=== PATIENT | male | born 1955 | race Caucasian/White ===

== ENCOUNTER 2019-12-26 12:15 | Outpatient (REF) | payer MEDICARE, SELFPAY ==
[2019-12-26 13:28] LABS: MANUAL DIFF FLAG NO
[2019-12-26 13:47] LABS: Basophils Percent Auto 0.3 % (0-2); Eosinophils Absolute Auto 0.2 X10*3/uL (0.0-0.4); Eosinophils Percent Auto 2.6 % (0-4); Hematocrit 38.8 % (42-52); Hemoglobin 12.7 g/dl (14.0-18.0); Imm Gran Abs Auto 0.02 X10*3/uL (0.00-0.03); Imm Gran Pct Auto 0.3 % (0.0-0.4); Lymphocytes Absolute Auto 1.4 X10*3/uL (1.2-4.9); Lymphocytes Percent Auto 22.3 % (20-40); Mean Corpuscular HGB Conc 32.7 g/dl (31.0-36.0); Mean Corpuscular Volume 91.5 fL (80-98); Mean Platelet Volume 11.5 fL (9.4-12.4); Monocytes Absolute Auto 0.5 X10*3/uL (0.1-1.2); Monocytes Percent Auto 7.7 % (2-11); Neutrophils Absolute Auto 4.1 X10*3/uL (2.0-8.3); Neutrophils Percent Auto 66.8 % (45-73); Platelet Count 133 X10*3/uL (160-400); Red Blood Count 4.24 X10*6/uL (4.60-5.80); Red Cell Distribution Width 13.2 % (11.0-16.0); White Blood Count 6.1 X10*3/uL (4.8-10.8)
[2019-12-26 14:10] LABS: Alanine Aminotransferase 43 U/L (0-40); Albumin Level 4.2 g/dL (3.5-5.0); Alkaline Phosphatase 96 U/L (39-117); Anion Gap 14 (12-20); Aspartate Amino Transferase 26 U/L (5-37); Bilirubin Total 0.4 mg/dL (0.0-1.0); Blood Urea Nitrogen 63 mg/dL (9-16); Calcium 8.8 mg/dL (8.4-10.2); Carbon Dioxide 16 mmol/L (22-29); Chloride 106 mmol/L (96-108); Estimated Glomerular Filt Rate 24; Glucose Random 352 mg/dL (60-115); Potassium 5.9 mmol/l (3.3-5.1); Sodium 130 mmol/L (135-145); Total Protein 6.8 g/dL (6.5-8.0)
[2019-12-26 14:23] LABS: Estimated Average Glucose 217 mg/dL; Hemoglobin A1c % 9.2 %
[2019-12-26 14:57] LABS: Creatinine Urine 45.08 mg/dL; Microalbum/Creatinine Ratio Ur 649.9 ug/mg cr
== END 2019-12-26 12:16 | disposition home or self-care (01) ==
LOC: HO.LAB 12:15
PROVIDERS: PCP Internal Medicine; Visit Provider Internal Medicine
DX: I12.9 Hypertensive chronic kidney disease with stage 1 through stage 4 chronic kidney disease, or unspecified chronic kidney disease (principal); N18.9 Chronic kidney disease, unspecified; E11.22 Type 2 diabetes mellitus with diabetic chronic kidney disease
CPT/HCPCS: 36415; 80053; 82043; 83036; 85025

== ENCOUNTER 2020-01-26 08:57 | Emergency (ER) | payer MEDICARE, SELFPAY ==
--- NOTE | 2020-01-26 09:35 | ED.URI ---
HPI - URI/Sore Throat General Chief Complaint: Abdominal Pain Stated Complaint: FLU [place]S Time Seen by Provider: 01/26/20 09:11 Source: patient Mode of arrival: ambulatory Limitations: no limitations History of Present Illness HPI Narrative: 64 y/o male presenting with mild cough, chills, myalgias, and diarrhea for the last 2-3 days. He states he just feels sick. He lives with his brother who was recently diagnosed with COVID-19 and is now hospitalized at [facility]. He states his brother's presentation had much more severe symptoms and he was dehydrated. Patient is tolerating PO well but admits to decreased appetitite. He has mild nausea and 1-2 episodes of diarrhea each morning. He has no abdominal pain, fevers, shortness of breath, difficulty breathing or chest pain. MD elicited complaint: cough and other Onset (ago): day(s) (2-3) Consistency: intermittent Severity: mild Description of mucous: clear Able to tolerate fluids by mouth: Yes Exacerbating factors: nothing Relieving factors: OTC cold medicine Context: sick contacts (brother was recently diagnosed with COVID-19 who he lives with ) Associated symptoms: chills, nausea and diarrhea Treatments prior to arrival: none Related Data Allergies Allergy/AdvReac Type Severity Reaction Status Date / Time No Known Allergies Allergy Unverified 11/28/19 15:01 [No Known Allergies*] Review of Systems Review of Systems: Constitutional: No Fever, + Chills ENT/Mouth: No sore throat, No Rhinorrhea, No Swallowing Difficulty Cardiovascular: No Chest Pain, No SOB, No Orthopnea, No Edema Respiratory: + Cough, No Sputum, No Wheezing, No dyspnea Gastrointestinal: + Nausea, No Vomiting, + Diarrhea, No abdominal Pain, No Hematochezia, No Melena Genitourinary: No Dysuria, No Urinary Frequency, No Hematuria Musculoskeletal: No joint pain, + Myalgias Skin: No Skin Lesions, No rash Neuro: No Weakness, No Numbness, No Dizziness, + Headache Psych: No Anxiety/Panic, No Depression Heme/Lymph: No Bruising, No Lymphadenopathy PMFSH Past Medical History Attestation statement: The following information was validated with the patient. Medical History Diabetes Social History Social History Advance Directives: Yes Advance Directives Information Provided: No Advance Directives on File: No Physical Exam Vital Signs: Vital Signs: Last Vital Signs Temp 97.2 F 01/26/20 09:40 Pulse 60 01/26/20 09:40 Resp 20 01/26/20 09:40 BP 150/67 H 01/26/20 09:40 Pulse Ox 97 01/26/20 09:40 Body Mass Index 29.8 Appearance: Alert. Oriented X3. No acute distress. ENT: Pharynx normal. Neck: Normal inspection. Neck supple. CVS: Normal heart rate and rhythm. Pulses normal. Respiratory: No respiratory distress. Breath sounds normal. Abdomen: Soft and nontender. Skin: Skin warm and dry. Normal skin color. Normal skin turgor. No rashes. Extremities: No lower extremity edema. Neuro: Oriented X 3. Non-focal Course Course Course Narrative: 64 y/o male presenting with COVID-19 symptoms after known expsosue. His symptoms are mild and he appears well. VSS. No hypoxia and lungs are clear. COVID PCR sent. Patient counseled on presumed COVID-19 diagnosis given his exposure. Warning signs and symptoms discussed that would warrant re-visit to the ER. He expressed understanding. He is stable for d/c. MDM - URI/Sore Throat MDM Narrative Medical decision making narrative: probable COVID-19 Differential Diagnosis Differential diagnosis: Likely upper respiratory infection, croup, otitis media, sinusitis, viral infection, bronchitis, influenza and pharyngitis Critical Care Time Critical Care Time Critical Care Time: No Discharge Plan Discharge Clinical Impression: COVID-19 Patient Disposition: Home, Self-Care Instructions: COVID-19 (Coronavirus Disease 2019) (ED) Additional Instructions: You were tested for COVID-19 today. We will call you with the results in 2-4 days. Given your exposure, it is very likely that it will be positive. Recommend self-quarantine at home and do not go out in public. Monitor your symptoms and temperature closely at home. Take over the counter cold/flu medications as needed for your symptoms. If you develop shortness of breath, difficulty breathing, chest pain or if your diarrhea becomes severe call 911 or come back to the ER for further evaluation. Follow up with your Primary Care doctor this week.
[2020-01-26 09:40] VITALS: BP 150/67; PULSE 60; RESP 20; TEMP 36.2; O2SAT 97; BMI 29.8
== END 2020-01-26 10:16 | disposition home or self-care (01) ==
PROVIDERS: Physician Assistant; Emergency Provider Emergency Medicine; PCP Internal Medicine
DX: R05 Cough (principal); M79.10 Myalgia, unspecified site; R19.7 Diarrhea, unspecified; Z20.828 Contact with and (suspected) exposure to other viral communicable diseases
CPT/HCPCS: 99283; U0003

== ENCOUNTER 2020-02-21 11:12 | Outpatient (REF) | payer MEDICARE, SELFPAY | END 2020-02-21 11:13 | disposition home or self-care (01) | LOC: HO.LAB 11:12 | PROVIDERS: PCP Internal Medicine; Visit Provider Internal Medicine | DX: Z20.828 Contact with and (suspected) exposure to other viral communicable diseases (principal) | CPT/HCPCS: C9803; U0003 ==

== ENCOUNTER 2020-03-26 12:11 | Outpatient (REF) | payer MEDICARE, SELFPAY ==
[2020-03-26 13:40] LABS: MANUAL DIFF FLAG NO
[2020-03-26 13:52] LABS: Basophils Percent Auto 0.6 % (0-2); Eosinophils Absolute Auto 0.2 X10*3/uL (0.0-0.4); Eosinophils Percent Auto 2.8 % (0-4); Hematocrit 39.4 % (42-52); Hemoglobin 12.6 g/dl (14.0-18.0); Imm Gran Abs Auto 0.03 X10*3/uL (0.00-0.03); Imm Gran Pct Auto 0.6 % (0.0-0.4); Lymphocytes Absolute Auto 1.2 X10*3/uL (1.2-4.9); Lymphocytes Percent Auto 21.7 % (20-40); Mean Corpuscular Volume 90.8 fL (80-98); Mean Platelet Volume 12.1 fL (9.4-12.4); Monocytes Absolute Auto 0.4 X10*3/uL (0.1-1.2); Monocytes Percent Auto 6.8 % (2-11); Neutrophils Absolute Auto 3.7 X10*3/uL (2.0-8.3); Neutrophils Percent Auto 67.5 % (45-73); Platelet Count 147 X10*3/uL (160-400); Red Blood Count 4.34 X10*6/uL (4.60-5.80); Red Cell Distribution Width 13.5 % (11.0-16.0); White Blood Count 5.4 X10*3/uL (4.8-10.8)
[2020-03-26 14:09] LABS: Creatinine Urine 42.18 mg/dL; Microalbum/Creatinine Ratio Ur 846.3 ug/mg cr
[2020-03-26 14:21] LABS: Estimated Average Glucose 217 mg/dL; Hemoglobin A1c % 9.2 %
[2020-03-26 15:14] LABS: Alanine Aminotransferase 35 U/L (0-40); Albumin Level 4.2 g/dL (3.5-5.0); Alkaline Phosphatase 103 U/L (39-117); Anion Gap 13 (12-20); Aspartate Amino Transferase 20 U/L (5-37); Bilirubin Total 0.5 mg/dL (0.0-1.0); Blood Urea Nitrogen 50 mg/dL (9-16); Calcium 8.8 mg/dL (8.4-10.2); Carbon Dioxide 19 mmol/L (22-29); Chloride 111 mmol/L (96-108); Estimated Glomerular Filt Rate 29; Glucose Random 295 mg/dL (60-115); Iron 67 mcg/dL (45-160); Percent Iron Saturation 21 % (15-50); Potassium 5.6 mmol/l (3.3-5.1); Sodium 137 mmol/L (135-145); Total Iron Binding Capacity 319 mcg/dL (228-428); Unsaturated Iron Binding 252 ug/dL
== END 2020-03-26 12:12 | disposition home or self-care (01) ==
LOC: HO.10HDL 12:11
PROVIDERS: Visit Provider Internal Medicine
DX: E11.22 Type 2 diabetes mellitus with diabetic chronic kidney disease (principal); I12.9 Hypertensive chronic kidney disease with stage 1 through stage 4 chronic kidney disease, or unspecified chronic kidney disease; N18.9 Chronic kidney disease, unspecified; D63.1 Anemia in chronic kidney disease
CPT/HCPCS: 36415; 80053; 82043; 83036; 83540; 85025

== ENCOUNTER 2020-04-09 14:22 | Outpatient (REF) | payer MEDICARE, SELFPAY ==
[2020-04-09 16:01] LABS: Anion Gap 16 (12-20); Blood Urea Nitrogen 49 mg/dL (9-16); Calcium 8.9 mg/dL (8.4-10.2); Carbon Dioxide 15 mmol/L (22-29); Chloride 110 mmol/L (96-108); Estimated Glomerular Filt Rate 34; Potassium 5.6 mmol/l (3.3-5.1); Sodium 135 mmol/L (135-145)
== END 2020-04-09 14:23 | disposition home or self-care (01) ==
LOC: HO.LAB 14:22
PROVIDERS: PCP Internal Medicine; Visit Provider Internal Medicine Hypertension Specialist
DX: I12.9 Hypertensive chronic kidney disease with stage 1 through stage 4 chronic kidney disease, or unspecified chronic kidney disease (principal); N18.30 Chronic kidney disease, stage 3 unspecified
CPT/HCPCS: 36415; 80051; 82310; 82565; 84520

== ENCOUNTER 2020-10-02 09:29 | Outpatient (REF) | payer MEDICARE, SELFPAY ==
[2020-10-02 11:41] LABS: Creatinine Urine 56.18 mg/dL
[2020-10-02 13:31] LABS: MANUAL DIFF FLAG NO
[2020-10-02 13:35] LABS: Basophils Percent Auto 0.6 % (0-2); Eosinophils Absolute Auto 0.2 X10*3/uL (0.0-0.4); Eosinophils Percent Auto 3.4 % (0-4); Hematocrit 41.6 % (42-52); Hemoglobin 13.3 g/dl (14.0-18.0); Imm Gran Abs Auto 0.02 X10*3/uL (0.00-0.03); Imm Gran Pct Auto 0.4 % (0.0-0.4); Lymphocytes Absolute Auto 1.4 X10*3/uL (1.2-4.9); Lymphocytes Percent Auto 27.8 % (20-40); Mean Corpuscular Hemoglobin 29.6 pg (27.0-33.0); Mean Corpuscular Volume 92.4 fL (80-98); Mean Platelet Volume 11.6 fL (9.4-12.4); Monocytes Absolute Auto 0.3 X10*3/uL (0.1-1.2); Monocytes Percent Auto 6.8 % (2-11); Platelet Count 162 X10*3/uL (160-400); Red Cell Distribution Width 12.9 % (11.0-16.0)
[2020-10-02 13:43] LABS: Estimated Average Glucose 189 mg/dL; Hemoglobin A1c % 8.2 %
[2020-10-02 13:45] LABS: Alanine Aminotransferase 53 U/L (0-40); Albumin Level 4.1 g/dL (3.5-5.0); Alkaline Phosphatase 141 U/L (39-117); Anion Gap 15 (12-20); Aspartate Amino Transferase 29 U/L (5-37); Bilirubin Total 0.4 mg/dL (0.0-1.0); Blood Urea Nitrogen 43 mg/dL (9-16); Calcium 9.2 mg/dL (8.4-10.2); Carbon Dioxide 18 mmol/L (22-29); Chloride 109 mmol/L (96-108); Estimated Glomerular Filt Rate 30; Glucose Random 186 mg/dL (60-115); Potassium 5.5 mmol/L (3.3-5.1); Sodium 136 mmol/L (135-145); Total Protein 7.1 g/dL (6.5-8.0)
[2020-10-02 14:08] LABS: Prostate Specific Antigen Scr 0.67 ng/mL (<0.05-4.0)
== END 2020-10-02 09:30 | disposition home or self-care (01) ==
LOC: HO.10HDL 09:29
PROVIDERS: Visit Provider Internal Medicine
DX: Z12.5 Encounter for screening for malignant neoplasm of prostate (principal); I12.9 Hypertensive chronic kidney disease with stage 1 through stage 4 chronic kidney disease, or unspecified chronic kidney disease; N18.9 Chronic kidney disease, unspecified; E11.22 Type 2 diabetes mellitus with diabetic chronic kidney disease; R35.1 Nocturia
CPT/HCPCS: 36415; 80053; 82043; 83036; 84153; 85025

== ENCOUNTER 2021-02-15 12:48 | Outpatient (REF) | payer MEDICARE, OTHER, SELFPAY ==
[2021-02-15 13:46] LABS: MANUAL DIFF FLAG NO
[2021-02-15 13:49] LABS: Basophils Percent Auto 0.7 % (0-2); Eosinophils Absolute Auto 0.2 X10*3/uL (0.0-0.4); Eosinophils Percent Auto 2.5 % (0-4); Hematocrit 43.7 % (42.0-52.0); Hemoglobin 14.3 g/dl (14.0-18.0); Imm Gran Abs Auto 0.01 X10*3/uL (0.00-0.03); Imm Gran Pct Auto 0.2 % (0.0-0.4); Lymphocytes Absolute Auto 1.5 X10*3/uL (1.2-4.9); Lymphocytes Percent Auto 25.3 % (20-40); Mean Corpuscular HGB Conc 32.7 g/dl (31.0-36.0); Mean Corpuscular Hemoglobin 29.2 pg (27.0-33.0); Mean Corpuscular Volume 89.2 fL (80.0-98.0); Mean Platelet Volume 11.8 fL (9.4-12.4); Monocytes Absolute Auto 0.4 X10*3/uL (0.1-1.2); Monocytes Percent Auto 6.2 % (2-11); Neutrophils Absolute Auto 3.9 x10*3/uL (2.0-8.3); Neutrophils Percent Auto 65.1 % (45-73); Platelet Count 149 X10*3/uL (160-400); Red Cell Distribution Width 13.2 % (11.0-16.0)
[2021-02-15 13:57] LABS: Estimated Average Glucose 189 mg/dL; Hemoglobin A1c % 8.2 %
[2021-02-15 14:22] LABS: Creatinine Urine 68.78 mg/dL; Microalbum/Creatinine Ratio Ur 604.8 ug/mg cr
[2021-02-15 14:37] LABS: Alanine Aminotransferase 37 U/L (0-40); Albumin Level 4.4 g/dL (3.5-5.0); Alkaline Phosphatase 122 U/L (39-117); Anion Gap 14 (12-20); Aspartate Amino Transferase 26 U/L (5-37); Bilirubin Total 0.7 mg/dL (0.0-1.0); Blood Urea Nitrogen 59 mg/dL (9-16); Calcium 9.5 mg/dL (8.4-10.2); Carbon Dioxide 17 mmol/L (22-29); Chloride 109 mmol/L (96-108); Estimated Glomerular Filt Rate 26; Glucose Random 171 mg/dL (60-115); Potassium 5.6 mmol/L (3.3-5.1); Sodium 134 mmol/L (135-145); Total Protein 7.5 g/dL (6.5-8.0)
== END 2021-02-15 12:49 | disposition home or self-care (01) ==
LOC: HO.10HDL 12:48
PROVIDERS: Visit Provider Internal Medicine
DX: I12.9 Hypertensive chronic kidney disease with stage 1 through stage 4 chronic kidney disease, or unspecified chronic kidney disease (principal); N18.9 Chronic kidney disease, unspecified; E11.22 Type 2 diabetes mellitus with diabetic chronic kidney disease
CPT/HCPCS: 36415; 80053; 82043; 83036; 85025

== ENCOUNTER 2021-06-17 11:17 | Outpatient (REF) | payer MEDICARE, OTHER, SELFPAY ==
[2021-06-17 11:37] LABS: MANUAL DIFF FLAG NO
[2021-06-17 11:50] LABS: Estimated Average Glucose 197 mg/dL; Hemoglobin A1c % 8.5 %
[2021-06-17 12:01] LABS: Basophils Percent Auto 0.5 % (0-2); Eosinophils Absolute Auto 0.2 X10*3/uL (0.0-0.4); Eosinophils Percent Auto 2.9 % (0-4); Hematocrit 45.9 % (42.0-52.0); Hemoglobin 14.4 g/dl (14.0-18.0); Imm Gran Abs Auto 0.02 X10*3/uL (0.00-0.03); Imm Gran Pct Auto 0.3 % (0.0-0.4); Lymphocytes Absolute Auto 1.6 X10*3/uL (1.2-4.9); Lymphocytes Percent Auto 26.3 % (20-40); Mean Corpuscular HGB Conc 31.4 g/dl (31.0-36.0); Mean Corpuscular Hemoglobin 29.1 pg (27.0-33.0); Mean Corpuscular Volume 92.7 fL (80.0-98.0); Mean Platelet Volume 11.6 fL (9.4-12.4); Monocytes Absolute Auto 0.4 X10*3/uL (0.1-1.2); Monocytes Percent Auto 5.6 % (2-11); Neutrophils Percent Auto 64.4 % (45-73); Platelet Count 135 X10*3/uL (160-400); Red Blood Count 4.95 X10*6/uL (4.60-5.80); Red Cell Distribution Width 13.1 % (11.0-16.0); White Blood Count 6.2 X10*3/uL (4.8-10.8)
[2021-06-17 12:32] LABS: Creatinine Urine 61.91 mg/dL
[2021-06-17 12:46] LABS: Microalbum/Creatinine Ratio Ur 983.6 ug/mg cr
[2021-06-17 13:24] LABS: Alanine Aminotransferase 30 U/L (0-40); Albumin Level 4.4 g/dL (3.5-5.0); Alkaline Phosphatase 123 U/L (39-117); Anion Gap 12 (12-20); Aspartate Amino Transferase 24 U/L (5-37); Bilirubin Total 0.7 mg/dL (0.0-1.0); Blood Urea Nitrogen 53 mg/dL (9-16); Calcium 9.5 mg/dL (8.4-10.2); Carbon Dioxide 17 mmol/L (22-29); Chloride 113 mmol/L (96-108); Estimated Glomerular Filt Rate 28; Glucose Random 140 mg/dL (60-115); Potassium 6.2 mmol/L (3.3-5.1); Sodium 136 mmol/L (135-145); Total Protein 7.3 g/dL (6.5-8.0)
[2021-06-18 15:00] LABS: Calcium (PTHI) 9.7 mg/dL (8.6-10.3); PTHI 81 pg/mL (16-77)
== END 2021-06-17 11:18 | disposition home or self-care (01) ==
LOC: HO.LAB 11:17
PROVIDERS: PCP Internal Medicine; Visit Provider Internal Medicine
DX: I12.9 Hypertensive chronic kidney disease with stage 1 through stage 4 chronic kidney disease, or unspecified chronic kidney disease (principal); N18.9 Chronic kidney disease, unspecified; E11.22 Type 2 diabetes mellitus with diabetic chronic kidney disease
CPT/HCPCS: 36415; 80053; 82043; 83036; 83970; 85025

== ENCOUNTER 2021-06-22 14:29 | Outpatient (REF) | payer MEDICARE, OTHER, SELFPAY ==
[2021-06-22 15:47] LABS: Anion Gap 13 (12-20); Blood Urea Nitrogen 60 mg/dL (9-16); Calcium 9.3 mg/dL (8.4-10.2); Carbon Dioxide 16 mmol/L (22-29); Chloride 114 mmol/L (96-108); Estimated Glomerular Filt Rate 26; Glucose Random 171 mg/dL (60-115); Potassium 6.1 mmol/L (3.3-5.1); Sodium 137 mmol/L (135-145)
== END 2021-06-22 14:30 | disposition home or self-care (01) ==
LOC: HO.LAB 14:29
PROVIDERS: PCP Internal Medicine; Visit Provider Internal Medicine
DX: N18.9 Chronic kidney disease, unspecified (principal)
CPT/HCPCS: 36415; 80048

== ENCOUNTER 2021-12-30 13:42 | Outpatient (REF) | payer MEDICARE, OTHER, SELFPAY ==
[2021-12-30 13:59] LABS: MANUAL DIFF FLAG NO
[2021-12-30 14:26] LABS: Estimated Average Glucose 197 mg/dL; Hemoglobin A1c % 8.5 %
[2021-12-30 14:29] LABS: Basophils Percent Auto 0.6 % (0-2); Eosinophils Absolute Auto 0.2 X10*3/uL (0.0-0.4); Eosinophils Percent Auto 3.4 % (0-4); Hematocrit 43.5 % (42.0-52.0); Hemoglobin 14.6 g/dl (14.0-18.0); Imm Gran Abs Auto 0.03 X10*3/uL (0.00-0.03); Imm Gran Pct Auto 0.5 % (0.0-0.4); Lymphocytes Absolute Auto 1.5 X10*3/uL (1.2-4.9); Lymphocytes Percent Auto 24.3 % (20-40); Mean Corpuscular HGB Conc 33.6 g/dl (31.0-36.0); Mean Corpuscular Hemoglobin 30.3 pg (27.0-33.0); Mean Corpuscular Volume 90.2 fL (80.0-98.0); Mean Platelet Volume 11.7 fL (9.4-12.4); Monocytes Absolute Auto 0.4 X10*3/uL (0.1-1.2); Monocytes Percent Auto 6.9 % (2-11); Neutrophils Percent Auto 64.3 % (45-73); Platelet Count 155 X10*3/uL (160-400); Red Blood Count 4.82 X10*6/uL (4.60-5.80); Red Cell Distribution Width 13.2 % (11.0-16.0); White Blood Count 6.2 X10*3/uL (4.8-10.8)
[2021-12-30 14:46] LABS: Alanine Aminotransferase 26 U/L (0-40); Albumin Level 4.5 g/dL (3.5-5.0); Alkaline Phosphatase 134 U/L (39-117); Anion Gap 17 (12-20); Aspartate Amino Transferase 20 U/L (5-37); Bilirubin Total 0.4 mg/dL (0.0-1.0); Blood Urea Nitrogen 49 mg/dL (9-16); Calcium 9.5 mg/dL (8.4-10.2); Carbon Dioxide 18 mmol/L (22-29); Chloride 109 mmol/L (96-108); Estimated Glomerular Filt Rate 28; Glucose Random 211 mg/dL (60-115); Potassium 5.7 mmol/L (3.3-5.1); Sodium 138 mmol/L (135-145); Total Protein 7.6 g/dL (6.5-8.0)
== END 2021-12-30 13:43 | disposition home or self-care (01) ==
LOC: HO.LAB 13:42
PROVIDERS: PCP Internal Medicine; Visit Provider Internal Medicine
DX: E11.22 Type 2 diabetes mellitus with diabetic chronic kidney disease (principal); I12.9 Hypertensive chronic kidney disease with stage 1 through stage 4 chronic kidney disease, or unspecified chronic kidney disease; N18.9 Chronic kidney disease, unspecified
CPT/HCPCS: 36415; 80053; 83036; 85025

== ENCOUNTER 2022-01-27 11:48 | Outpatient (REF) | payer MEDICARE, OTHER, SELFPAY ==
[2022-01-27 13:09] LABS: Anion Gap 15 (12-20); Blood Urea Nitrogen 40 mg/dL (9-16); Calcium 8.9 mg/dL (8.4-10.2); Carbon Dioxide 18 mmol/L (22-29); Chloride 108 mmol/L (96-108); Estimated Glomerular Filt Rate 30; Glucose Random 224 mg/dL (60-115); Sodium 136 mmol/L (135-145)
== END 2022-01-27 11:49 | disposition home or self-care (01) ==
LOC: HO.LAB 11:48
PROVIDERS: PCP Internal Medicine; Visit Provider Internal Medicine
DX: E11.22 Type 2 diabetes mellitus with diabetic chronic kidney disease (principal); N18.9 Chronic kidney disease, unspecified
CPT/HCPCS: 36415; 80048

== ENCOUNTER 2022-07-19 10:36 | Outpatient (REF) | payer MEDICARE, OTHER, SELFPAY ==
[2022-07-19 10:48] LABS: MANUAL DIFF FLAG NO
[2022-07-19 11:10] LABS: Basophils Percent Auto 0.7 % (0-2); Eosinophils Absolute Auto 0.2 X10*3/uL (0.0-0.4); Eosinophils Percent Auto 2.9 % (0-4); Hematocrit 39.8 % (42.0-52.0); Hemoglobin 12.8 g/dl (14.0-18.0); Imm Gran Abs Auto 0.01 X10*3/uL (0.00-0.03); Imm Gran Pct Auto 0.2 % (0.0-0.4); Lymphocytes Absolute Auto 1.5 X10*3/uL (1.2-4.9); Lymphocytes Percent Auto 24.7 % (20-40); Mean Corpuscular HGB Conc 32.2 g/dl (31.0-36.0); Mean Corpuscular Hemoglobin 29.8 pg (27.0-33.0); Mean Corpuscular Volume 92.8 fL (80.0-98.0); Mean Platelet Volume 11.3 fL (9.4-12.4); Monocytes Absolute Auto 0.4 X10*3/uL (0.1-1.2); Monocytes Percent Auto 7.1 % (2-11); Neutrophils Absolute Auto 3.8 x10*3/uL (2.0-8.3); Neutrophils Percent Auto 64.4 % (45-73); Platelet Count 151 X10*3/uL (160-400); Red Blood Count 4.29 X10*6/uL (4.60-5.80); Red Cell Distribution Width 13.3 % (11.0-16.0); White Blood Count 5.9 X10*3/uL (4.8-10.8)
[2022-07-19 11:21] LABS: Estimated Average Glucose 197 mg/dL; Hemoglobin A1c % 8.5 %
[2022-07-19 12:41] LABS: Creatinine Urine 55.79 mg/dL; Microalbum/Creatinine Ratio Ur 799.4 ug/mg cr
[2022-07-19 12:46] LABS: Alanine Aminotransferase 39 U/L (0-40); Albumin Level 4.1 g/dL (3.5-5.0); Alkaline Phosphatase 101 U/L (39-117); Anion Gap 12 (12-20); Aspartate Amino Transferase 24 U/L (5-37); Bilirubin Total 0.5 mg/dL (0.0-1.0); Blood Urea Nitrogen 41 mg/dL (9-16); Carbon Dioxide 19 mmol/L (22-29); Chloride 112 mmol/L (96-108); Estimated Glomerular Filt Rate 28; Glucose Random 176 mg/dL (60-115); Potassium 5.5 mmol/L (3.3-5.1); Sodium 137 mmol/L (135-145); Total Protein 6.8 g/dL (6.5-8.0)
== END 2022-07-19 10:37 | disposition home or self-care (01) ==
LOC: HO.LAB 10:36
PROVIDERS: PCP Internal Medicine; Visit Provider Internal Medicine
DX: E11.22 Type 2 diabetes mellitus with diabetic chronic kidney disease (principal); I12.9 Hypertensive chronic kidney disease with stage 1 through stage 4 chronic kidney disease, or unspecified chronic kidney disease; N18.9 Chronic kidney disease, unspecified
CPT/HCPCS: 36415; 80053; 82043; 83036; 85025

== ENCOUNTER 2023-04-15 11:47 | Emergency (ER) | payer MEDICARE, OTHER, SELFPAY ==
--- NOTE | ~2023-04-15 | XR_ITS ---
EXAMINATION: XR CHEST CLINICAL INFORMATION: Right chest pain COMPARISON: Previous chest x-ray August 2017 TECHNIQUE: Frontal view of the chest was obtained. FINDINGS: No significant abnormality is noted involving the heart, lungs, mediastinum, bony thorax or soft tissues. XR/XR chest 1V IMPRESSION: Unremarkable examination.
[2023-04-15 12:00] VITALS: BP 144/76; BP 155/71; PULSE 89; PULSE 91; RESP 17; TEMP 36.7; O2SAT 98; O2SAT 99; BMI 29.4
--- NOTE | 2023-04-15 12:06 | ECG_ITS ---
Test Reason : CP Blood Pressure : / mmHG Vent. Rate : 086 BPM Atrial Rate : 086 BPM P-R Int : 244 ms QRS Dur : 116 ms QT Int : 384 ms P-R-T Axes : 014 -63 054 degrees QTc Int : 459 ms Sinus rhythm with 1st degree A-V block Left anterior fascicular block Left ventricular hypertrophy with QRS widening ( R in aVL , Tez product ) Abnormal ECG When compared with ECG of 26-AUG-2017 12:54, Premature atrial complexes are no longer Present DE interval has increased Vent. rate has increased BY 35 BPM Referred By: Generic ED Physician Electronically Signed By:MERVAT SOTO MD
--- NOTE | 2023-04-15 12:51 | PC.NURSE ---
20gIV placed in the right hand. labs obtained/sent to lab. call arrington placed within reach.
[2023-04-15 12:56] LABS: MANUAL DIFF FLAG NO
[2023-04-15 13:01] LABS: Basophils Percent Auto 0.3 % (0-2); Eosinophils Absolute Auto 0.1 X10*3/uL (0.0-0.4); Eosinophils Percent Auto 0.8 % (0-4); Hematocrit 42.5 % (42.0-52.0); Hemoglobin 14.5 g/dl (14.0-18.0); Imm Gran Abs Auto 0.05 X10*3/uL (0.00-0.03); Imm Gran Pct Auto 0.5 % (0.0-0.4); Lymphocytes Absolute Auto 1.3 X10*3/uL (1.2-4.9); Lymphocytes Percent Auto 13.1 % (20-40); Mean Corpuscular HGB Conc 34.1 g/dl (31.0-36.0); Mean Platelet Volume 11.4 fL (9.4-12.4); Monocytes Absolute Auto 0.7 X10*3/uL (0.1-1.2); Monocytes Percent Auto 6.9 % (2-11); Neutrophils Absolute Auto 7.6 x10*3/uL (2.0-8.3); Neutrophils Percent Auto 78.4 % (45-73); Platelet Count 145 X10*3/uL (160-400); Red Blood Count 4.83 X10*6/uL (4.60-5.80); Red Cell Distribution Width 13.2 % (11.0-16.0); White Blood Count 9.7 X10*3/uL (4.8-10.8)
--- NOTE | 2023-04-15 14:04 | ED.ABDPAIN ---
HPI - Abdominal Pain General Chief Complaint: Nausea/Vomiting/Diarrhea Stated Complaint: ABD PAIN Time Seen by Provider: 04/15/23 13:18 Source: patient Mode of arrival: EMS History of Present Illness HPI narrative: 68-year-old male states he has had nausea and vomiting since Monday, drinks 2-3 beers, 2 to 3 times a week and states he is continued to have bowel movement and flatus but reports epigastric/esophageal discomfort and has not had any nausea, vomiting. Patient is diabetic and does not carry any diagnosis of gastroparesis. Related Data Allergies Allergy/AdvReac Type Severity Reaction Status Date / Time No Known Allergies Allergy Unverified 11/28/19 15:01 [No Known Allergies*] Review of Systems Review of Systems Pertinent positives and negatives as stated in HPI [facility] Past Medical History Source: nursing notes reviewed Medical History Diabetes Social History Social History Advance Directives: No Advance Directives Information Provided: No Physical Exam ED Vital Signs: Vital Signs - 24 hr 04/15/23 12:00 Temperature 98.1 F Pulse Rate 89 Respiratory Rate 17 Blood Pressure 155/71 H Pulse Oximetry 98 Oxygen Delivery Method Room Air BMI result Body Mass Index 29.4 VITAL SIGNS: Reviewed. GENERAL: Well developed, well nourished, in no acute distress. HEAD: Normocephalic/atraumatic EYES: PERRLA, EOMI EARS: Ext canals without abnormality NOSE: Nares patent bilateral OROPHARYNX: no oral lesions noted, posterior pharynx clear NECK: Supple, no adenopathy LUNGS: Normal breath sounds. No adventitious sounds or accessory muscle use. SpO2<98> CARDIOVASCULAR: Regular rate and rhythm without noted murmurs ABDOMEN: Soft, epigastric discomfort on deep palpation, non-distended with bowel sounds. MUSCULOSKELETAL: No tenderness, deformities, or effusions noted on gross inspection. EXTREMITIES: No cyanosis, clubbing or edema. SKIN: Inspection of the skin reveals no rashes NEUROLOGIC: Alert and oriented x 4. Strength and sensation to light touch were grossly intact x 4. Medical Decision Making Medical Decision Making MDM Narrative: 68-year-old male with history and clinical presentation, DDX: Gastritis, esophagitis, low clinical suspicion for Areli-Tsai/bar hives, also possibility of pancreatitis and low clinical suspicion for cholecystitis. 1503: Chemistries significantly delayed, I received a call from lab stating that potassium is 6.4. Patient will receive D50/insulin/Lokelma/calcium gluconate. I reviewed all other investigations. Hematologic indices negative for leukocytosis/anemia and there is a stable and chronic thrombocytopenia. Chemistry indices demonstrate hyperglycemia without evidence of DKA or HHS and a corresponding pseudohyponatremia secondary to the hyperglycemia. Patient's renal function is chronically stable and potassium is elevated but this appears to be consistent for the patient and he will receive the above treatment. He is asking for food and water which is a good sign. On clinical exam there was no evidence to suggest oral thrush and therefore low likelihood for esophagitis candidiasis. Liver enzymes are within normal limits and high sensitivity troponin is noted to be 32.8 without acute changes on EKG. Lipase is within normal limits. Chest x-ray does not demonstrate any infiltrate or venous congestion otherwise no acute abnormalities and my interpretation is in agreement with radiology's impression. Dr Dominguez - follow-up BMP/Trop #2 and then suspect that patient can eat and drink something and be discharged. Differential Diagnosis Differential Diagnoses: The differential diagnosis associated with the presentation includes Please see the discussion above Admission/Observation Consideration of admission/observation: Escalation of care including admission/observation considered Please see the discussion above Lab Data MDM Lab Attestation statement: I reviewed the patient's lab results. Please see the discussion above 04/15/23 12:50 04/15/23 14:34 Labs: Lab Results 04/15/23 04/15/23 Range/Units 12:50 14:34 WBC 9.7 (4.8-10.8) X10*3/uL RBC 4.83 (4.60-5.80) X10*6/uL Hgb 14.5 (14.0-18.0) g/dl Hct 42.5 (42.0-52.0) % MCV 88.0 (80.0-98.0) fL MCH 30.0 (27.0-33.0) pg MCHC 34.1 (31.0-36.0) g/dl RDW 13.2 (11.0-16.0) % Plt Count 145 L (160-400) X10*3/uL MPV 11.4 (9.4-12.4) fL Immature Gran % (Auto) 0.5 H (0.0-0.4) % Neut % (Auto) 78.4 H (45-73) % Lymph % (Auto) 13.1 L (20-40) % [place] % (Auto) 6.9 (2-11) % Eos % (Auto) 0.8 (0-4) % Baso % (Auto) 0.3 (0-2) % Lymph # (Auto) 1.3 (1.2-4.9) X10*3/uL [place] # (Auto) 0.7 (0.1-1.2) X10*3/uL Eos # (Auto) 0.1 (0.0-0.4) X10*3/uL Baso # (Auto) 0.0 (0.0-0.2) X10*3/uL Abs Immat Gran (auto) 0.05 H (0.00-0.03) X10*3/uL Absolute Neuts (auto) 7.6 (2.0-8.3) x10*3/uL Absolute Nucleated RBC 0.000 (0.0-0.012) X10*3/uL Nucleated RBC % (auto) 0.0 (0.0-0.2) /100WBC Sodium 131 L (135-145) mmol/L Potassium 6.4 H* (3.3-5.1) mmol/L Chloride 100 (96-108) mmol/L Carbon Dioxide 20 L (22-29) mmol/L Anion Gap 17 (12-20) BUN 73 H (9-16) mg/dL Creatinine 2.70 H (0.5-1.4) mg/dL Estim Creat Clear Calc 31.3 Estimated GFR 24 Random Glucose 315 H (60-115) mg/dL Calcium 9.0 (8.4-10.2) mg/dL Magnesium 2.7 H (1.6-2.6) mg/dL Total Bilirubin 0.9 (0.0-1.0) mg/dL Direct Bilirubin 0.4 (0.0-0.5) mg/dL AST 18 (5-37) U/L ALT 26 (0-40) U/L Alkaline Phosphatase 116 (39-117) U/L Troponin I High Sens 32.8 (<3.5-35.0) ng/L Total Protein 7.3 (6.5-8.0) g/dL Albumin 3.7 (3.5-5.0) g/dL Lipase 26 (8-78) U/L Independent Interpretation I performed an independent interpretation of an: EKG Interpretation: Sinus rhythm with first-degree AV block, HR-86, no STEMI, no obvious peaked T-waves, MN-244, QRS-116, QTC-459 Radiology Impression Discussion of test interpretation with radiology: I have reviewed the radiologist's reading. Radiologist Impression: Please see the discussion above External Record Review External record reviewed: Outpatient record and Prior outpatient labs Chronic Conditions Patient?s care impacted by: Diabetes Medications Administered Discontinued Medications Generic Name Dose Route Start Last Admin Trade Name Freq PRN Reason Stop Dose Admin Dextrose 25 gm 04/15/23 15:07 04/15/23 15:30 Dextrose 50 % 25 Gm/50 Ml Syringe IVPUSH 04/15/23 15:08 25 gm ONCE ONE Administration Calcium Gluconate 2 gm in 100 mls @ 400 mls/hr 04/15/23 15:07 04/15/23 15:30 Calcium Gluconate IV 04/15/23 15:21 400 mls/hr ONCE ONE Administration Insulin Human Regular 5 unit 04/15/23 15:07 04/15/23 15:29 Insulin Regular, Human 100 Unit/Ml 3 Ml Vial IVPUSH 04/15/23 15:08 5 unit ONCE ONE Administration Sodium Zirconium Cyclosilicate 10 gm 04/15/23 15:07 04/15/23 15:29 Sodium Zirconium Cyclosilicate 10 Gm Powd.Pack PO 04/15/23 15:08 10 gm ONCE ONE Administration Critical Care Time Critical Care Time Critical Care Time: Yes Total Critical Care Time: 30 Attestation: I personally attest to this time spent taking care of the patient. Discharge Plan Discharge Clinical Impression: Gastritis, CKD (chronic kidney disease), Hyperkalemia, Hyperglycemia due to diabetes mellitus Patient Disposition: Still a Patient Instructions: Gastritis (ED), Diet for Stomach Ulcers and Gastritis (ED), Chronic Kidney Disease (ED), Diabetic Hyperglycemia (ED)
[2023-04-15 15:03] LABS: Alanine Aminotransferase 26 U/L (0-40); Albumin Level 3.7 g/dL (3.5-5.0); Alkaline Phosphatase 116 U/L (39-117); Anion Gap 17 (12-20); Aspartate Amino Transferase 18 U/L (5-37); Bilirubin Direct 0.4 mg/dL (0.0-0.5); Bilirubin Total 0.9 mg/dL (0.0-1.0); Blood Urea Nitrogen 73 mg/dL (9-16); Carbon Dioxide 20 mmol/L (22-29); Chloride 100 mmol/L (96-108); Creatinine Clr Calc Pharmacy 31.3; Estimated Glomerular Filt Rate 24; Glucose Random 315 mg/dL (60-115); Lipase 26 U/L (8-78); Magnesium 2.7 mg/dL (1.6-2.6); Potassium 6.4 mmol/L (3.3-5.1); Sodium 131 mmol/L (135-145); Total Protein 7.3 g/dL (6.5-8.0)
[2023-04-15 15:08] LABS: Troponin-I High Sensitivity 32.8 ng/L (<3.5-35.0)
[2023-04-15] MEDS: Insulin Regular, Human 100 UNIT/ML 3 ML VIAL IVPUSH (15:29)
[2023-04-15] MEDS: Sodium Zirconium Cyclosilicate 10 GM POWD.PACK PO (15:29)
[2023-04-15] MEDS: Calcium Gluconate/NaCl,Iso-Osm 2 GM/100 ML PLAST..BAG IV (15:30)
[2023-04-15] MEDS: Dextrose 50 % 25 GM/50 ML SYRINGE IVPUSH (15:30)
[2023-04-15 17:03] LABS: Anion Gap 16 (12-20); Blood Urea Nitrogen 72 mg/dL (9-16); Calcium 9.5 mg/dL (8.4-10.2); Carbon Dioxide 20 mmol/L (22-29); Chloride 100 mmol/L (96-108); Creatinine Clr Calc Pharmacy 32.4; Estimated Glomerular Filt Rate 24; Glucose Random 360 mg/dL (60-115); Potassium 5.7 mmol/L (3.3-5.1); Sodium 130 mmol/L (135-145)
[2023-04-15 17:05] LABS: Troponin-I High Sensitivity 35.8 ng/L (<3.5-35.0)
[2023-04-15 17:58] VITALS: BP 149/86; PULSE 79; RESP 18; O2SAT 98
--- NOTE | 2023-04-15 18:10 | PC.NURSE ---
Patient resting on stretcher with eyes closed, vital signs stable at this time. Respiratory rate equal and without distress.
[2023-04-15 18:27] VITALS: BP 140/81; PULSE 85; RESP 14; TEMP 37; O2SAT 98
[2023-04-15 20:35] VITALS: BP 159/80; PULSE 85; RESP 12; O2SAT 99
[2023-04-15 22:35] VITALS: RESP 16
[2023-04-15] MEDS: Morphine Sulfate 4 MG/ML CARTRIDGE IVPUSH (22:35)
[2023-04-15] MEDS: ondansetron HCL 4 MG/2 ML VIAL IVPUSH (22:36)
[2023-04-15] MEDS: 0.9 % Sodium Chloride 1,000 ML 999 ML IV (22:39)
[2023-04-15 23:00] VITALS: BP 122/54; PULSE 71; RESP 17; O2SAT 99
[2023-04-16 00:06] VITALS: RESP 14
[2023-04-16] MEDS: Morphine Sulfate 4 MG/ML CARTRIDGE IVPUSH (00:06)
[2023-04-16 01:06] VITALS: BP 154/65; PULSE 68; RESP 18; TEMP 36.9; O2SAT 96
== END 2023-04-16 01:55 | disposition home or self-care (01) ==
PROVIDERS: Student in an Organized Health Care Education/Training Program; Emergency Provider Emergency Medicine Emergency Medical Services; PCP Internal Medicine
DX: K29.70 Gastritis, unspecified, without bleeding (principal); E11.22 Type 2 diabetes mellitus with diabetic chronic kidney disease; E11.65 Type 2 diabetes mellitus with hyperglycemia; N18.9 Chronic kidney disease, unspecified; E87.5 Hyperkalemia
CPT/HCPCS: 36415; 71045; 80048; 80076; 83690; 83735; 84484; 85025; 93005; 96361; 96365; 96375; 96376; 99284; 99285; J0613; J2270; J2405

== ENCOUNTER → 2023-04-15 12:06 | Outpatient (BNV) | payer MEDICARE, SELFPAY | PROVIDERS: Emergency Provider Emergency Medicine Emergency Medical Services; PCP Internal Medicine; Visit Provider Internal Medicine Cardiovascular Disease | DX: I44.0 Atrioventricular block, first degree (principal) | CPT/HCPCS: 93010 ==

== ENCOUNTER 2023-06-14 15:18 | Outpatient (REF) | payer MEDICARE, OTHER, SELFPAY ==
[2023-06-14 15:33] LABS: MANUAL DIFF FLAG NO
[2023-06-14 17:36] LABS: Basophils Absolute Auto 0.1 X10*3/uL (0.0-0.2); Eosinophils Absolute Auto 0.2 X10*3/uL (0.0-0.4); Hematocrit 37.9 % (42.0-52.0); Hemoglobin 12.4 g/dl (14.0-18.0); Imm Gran Abs Auto 0.01 X10*3/uL (0.00-0.03); Imm Gran Pct Auto 0.2 % (0.0-0.4); Lymphocytes Absolute Auto 1.6 X10*3/uL (1.2-4.9); Mean Corpuscular HGB Conc 32.7 g/dl (31.0-36.0); Mean Corpuscular Hemoglobin 29.4 pg (27.0-33.0); Mean Corpuscular Volume 89.8 fL (80.0-98.0); Mean Platelet Volume 11.1 fL (9.4-12.4); Monocytes Absolute Auto 0.4 X10*3/uL (0.1-1.2); Monocytes Percent Auto 8.4 % (2-11); Neutrophils Percent Auto 56.4 % (45-73); Platelet Count 182 X10*3/uL (160-400); Red Blood Count 4.22 X10*6/uL (4.60-5.80); White Blood Count 5.2 X10*3/uL (4.8-10.8)
[2023-06-14 18:10] LABS: Alanine Aminotransferase 24 U/L (0-40); Albumin Level 3.8 g/dL (3.5-5.0); Alkaline Phosphatase 105 U/L (39-117); Anion Gap 14 (12-20); Aspartate Amino Transferase 17 U/L (5-37); Bilirubin Total 0.5 mg/dL (0.0-1.0); Blood Urea Nitrogen 57 mg/dL (9-16); Calcium 9.3 mg/dL (8.4-10.2); Carbon Dioxide 19 mmol/L (22-29); Chloride 108 mmol/L (96-108); Estimated Glomerular Filt Rate 23; Glucose Random 204 mg/dL (60-115); Potassium 5.5 mmol/L (3.3-5.1); Sodium 135 mmol/L (135-145); Total Protein 7.3 g/dL (6.5-8.0)
[2023-06-15 06:22] LABS: Estimated Average Glucose 177 mg/dL; Hemoglobin A1c % 7.8 % (<6.0)
== END 2023-06-14 15:19 | disposition home or self-care (01) ==
LOC: HO.LAB 15:18
PROVIDERS: PCP Internal Medicine; Visit Provider Internal Medicine
DX: E11.22 Type 2 diabetes mellitus with diabetic chronic kidney disease (principal); I12.9 Hypertensive chronic kidney disease with stage 1 through stage 4 chronic kidney disease, or unspecified chronic kidney disease; N18.9 Chronic kidney disease, unspecified
CPT/HCPCS: 36415; 80053; 83036; 85025

== ENCOUNTER 2024-03-14 10:23 | Outpatient (REF) | payer MEDICARE, SELFPAY ==
--- OUTSIDE RECORDS SUMMARY | 2024-03-14 10:42 | XMS_ITS | Continuity of Care Document ---
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 Care Team Information Receiv er [phone] Problems Active Problems Provider Date Type 2 diabetes mellitus Curtis Gotti M.D. Onset: 02/16/2022 Cerebrovascular accident Curtis Gotti M.D. Onset: 02/17/2022 Chronic kidney disease stage 3 Curtis Gotti M.D. Onset: 09/03/2023 Diabetes mellitus Curtis Gotti M.D. Onset: 12/18/2023 Social History Type Date Description Comments Sex Unknown Tobacco Use Start: Unknown Never Smoked Cigarettes ETOH Use Consumes 1-2 beers per week Allergies and adverse reactions Description No Known Drug Allergies Medications Active Medications SIG Qnty Indications Order ing Provider Date Freestyle Ezekiel 3 Plus/Sensor/Glucose Monitoring SystemMisc apply one sensor to skin every 14 days dx: e10.21 6units Curtis Gotti M.D. 12/21/2023 Freestyle Ezekiel 3/[place]/Glucose Monitoring Fhgpia8Pjwjty Device use with sensors to check blood sugar dx:e11.9 1units Curtis Gotti M.D. 12/20/2023 Pzhugxhz3ox/0.5ML Solution Pen-Inject 1 injection every week as directed 6ml Curtis Gotti M.D. 11/21/2023 Freestyle Ezekiel 3/Sensor/Glucose Monitoring Dkvijd0Cvgsxv Misc as directed 3units Curtis Gotti M.D. 07/18/2023 Sdiqrimsx49ia Tablets 1 tablet by mouth every day 90tabs Curtis Gotti M.D. 07/18/2023 Novolog Bepbtno658Wqze/ML Solution Pen-Inject Inject 10-15 Units Subcutaneously 3 Times A Day 60units E11.9 Curtis Gotti M.D. 08/09/2022 Lantus Aavktrve082Vtwz/ML Solution Pen-Inject Inject 54 Units In Am 60ml E11.8 Curtis Gotti M.D. 02/07/2022 Gyvwdmkvqr66xa Tablets Take 1/2 Tablet Daily 90tabs Curtis Gotti M.D. Atorvastatin Exsxjmh15au Tablets 1 by mouth every day 30tabs Sanford Urrutia M.D. Losartan Hmlwyherj61nm Tablets 1 by mouth every day 90tabs Sean Mendoza MD Vital Signs Date Vital Result Comment 11/27/2023 11:02am Height 72 inches 6'0 Weight 220.12 lb BMI (Body Mass Index) 29.9 kg/m2 Results Test Acquired Date Facility Test Result H/L Range Note Laboratory test finding 11/27/2023 Inhouse Glucose Fingerstick 143 Comp. Metabolic Panel (14) 11/17/2023 [facility] Glucose 228 mg/dL High 70-99 1 BUN 42 mg/dL High 8-27 Creatinine 2.02 mg/dL High 0.76-1.27 eGFR 35 mL/min/1.7 3 Low >59 BUN/Creatinine Ratio 21 10-24 Sodium 136 mmol/L 134-144 Potassium 5.6 mmol/L High 3.5-5.2 Chloride 107 mmol/L High 96-106 Carbon Dioxide, Total 15 mmol/L Low 20-29 Calcium 8.9 mg/dL 8.6-10.2 Protein, Total 6.5 g/dL 6.0-8.5 Albumin 4.1 g/dL 3.9-4.9 Globulin, Total 2.4 g/dL 1.5-4.5 Bilirubin, Total 0.3 mg/dL 0.0-1.2 Alkaline Phosphatase 136 IU/L High 44-121 Ast (Sgot) 24 IU/L 0-40 Alt (SGPT) 30 IU/L 0-44 Lipid Panel 11/17/2023 [facility] Cholesterol, Total 129 mg/dL 100-199 Triglycerides 181 mg/dL High 0-149 HDL Cholesterol 41 mg/dL >39 VLDL Cholesterol Balta 30 mg/dL 5-40 LDL Chol Calc ([facility]) 58 mg/dL 0-99 LDL Calc Comment: TNP Urinalysis, Complete 11/17/2023 [facility] Specific [place] 1.016 1.005-1.03 0 pH 5.5 5.0-7.5 Urine-Color Yellow Yellow Appearance Clear Clear WBC Esterase Negative Negative Protein 2+ Abnormal Negative/T race Glucose 2+ Abnormal Negative Ketones Negative Negative Occult Blood Negative Negative Bilirubin Negative Negative Urobilinogen,Se mi-Qn 0.2 mg/dL 0.2-1.0 Nitrite, Urine Negative Negative Microscopic Examination See below: 2 Microscopic Examination TNP WBC None seen /hpf 0 - 5 RBC None seen /hpf 0 - 2 Epithelial Cells (non renal) None seen /hpf 0 - 10 Epithelial Cells (renal) TNP Casts None seen /lpf None seen Cast Type TNP Crystals TNP Crystal Type TNP Mucus Threads TNP Bacteria None seen None seen/Few Yeast TNP Trichomonas TNP Comment TNP Hemoglobin A1c 11/17/2023 [facility] Hemoglobin A1c 8.5 % High 4.8-5.6 3 CBC With Differential/Pl atelet 11/17/2023 [facility] WBC 5.3 x10E3/uL 3.4-10.8 RBC 4.02 x10E6/uL Low 4.14-5.80 Hemoglobin 12.5 g/dL Low 13.0-17.7 Hematocrit 38.9 % 37.5-51.0 MCV 97 fL 79-97 MCH 31.1 pg 26.6-33.0 MCHC 32.1 g/dL 31.5-35.7 RDW 13.1 % 11.6-15.4 Platelets 147 x10E3/uL Low 150-450 Neutrophils 66 % Not Estab. Lymphs 25 % Not Estab. Monocytes 6 % Not Estab. Eos 2 % Not Estab. Basos 1 % Not Estab. Immature Cells TNP Neutrophils (Absolute) 3.5 x10E3/uL 1.4-7.0 Lymphs (Absolute) 1.3 x10E3/uL 0.7-3.1 Monocytes(Absol malini) 0.3 x10E3/uL 0.1-0.9 Eos (Absolute) 0.1 x10E3/uL 0.0-0.4 Baso (Absolute) 0.0 x10E3/uL 0.0-0.2 Immature Granulocytes 0 % Not Estab. Immature Grans (Abs) 0.0 x10E3/uL 0.0-0.1 NRBC TNP Hematology Comments: TNP Laboratory test finding 11/17/2023 [facility] TSH Rfx on Abnormal to Free T4 3.300 uIU/mL 0.450-4.50 0 Albumin/Creatin ine Ratio, Random Urine 11/17/2023 [facility] Creatinine, Urine 65.7 mg/dL Not Estab. Albumin, Urine 476.7 ug/mL Not Estab. 4 Alb/Creat Ratio 726 mg/gcreat High 0-29 5 Laboratory test finding 10/30/2023 Inhouse Glucose Fingerstick 189 Hemoglobin A1c 8.3% Laboratory test finding 07/18/2023 Inhouse Glucose Fingerstick 237 Hemoglobin A1c 7.7% Laboratory test finding 08/24/2022 [facility] TSH With Reflex To FT4 3.54 uIU/mL (0.4-4.2) Urinary Microalbumin 08/24/2022 [facility] Micro-Albumin 305.0 mg/L High (<20) 6 Malb/Creat Ratio 509.3 MG/GM High (0-20) Urine Creat For Micro Albumin 59.9 mg/dL Complete Abc With Diff 08/24/2022 [facility] WBC 4.9 K/MM3 (4.0-11.0) RBC 4.55 M/MM3 Low (4.70-6.10 ) HGB 13.5 GM/DL Low (13.7-17.1 ) HCT 41.8 % (40.5-50.0 ) MCV 91.9 FL (80.0-94.0 ) MCH 29.7 pg (27.0-34.0 ) MCHC 32.3 g/dL Low (33.0-37.0 ) PLT 133 K/MM3 Low (150-460) RDW-SD 44.5 FL (<47.0) MPV 11.3 FL (9.4-12.4) Automated NRBC 0.0 #/100WBC'S Abs. NRBC 0.0 K/MM3 Neut # 3.0 K/MM3 (1.3-7.0) Lymph # 1.3 K/MM3 (0.8-3.1) [place]# 0.4 K/MM3 (0.4-1.3) Eo # 0.1 K/MM3 (0.0-0.4) Baso # 0.0 K/MM3 (0.0-0.1) Abs. Imm Gran 0.0 K/MM3 Neut 62.6 % (44-76) Lymph 26.7 % (15-43) Monocyte 7.2 % (4.5-10.5) Eo 2.7 % (0-6) Baso 0.4 % (0-2) Imm Gran 0.4 % Urinalysis Complete 08/24/2022 [facility] Appear/Color LIGHT YELLOW 7 SP. [place] 1.019 (1.002-1.0 30) Urine PH 6.0 (5.0-8.0) Urine Albumin 1+ Abnormal (Neg) Urine Glucose 4+ Abnormal (Neg) Urine Ketones NEGATIVE (Neg) Urine Bilirubin NEGATIVE (Neg) Urine Hemoglobin NEGATIVE (Neg) Urine Nitrite NEGATIVE (Neg) Urine Leukocyte NEGATIVE (Neg) Urobilinogen NORMAL mg/dL (Norm) Urine WBCs NONE SEEN /HPF (0-5) Urine RBCs <1 /HPF (0-3) Lipid Panel 08/24/2022 [facility] Cholesterol, Total 175 mg/dL (<200) Triglyceride 213 mg/dL High (<150) HDL Chol 41 mg/dL (>39) LDL Cholesterol, Calculated 91 mg/dL (0-130) Non HDL Cholesterol (Calc) 134 mg/dL (<160) Comprehensive Metabolic Panl 08/24/2022 [facility] Glucose 184 mg/dL High (70-99) BUN 60 mg/dL High (8-23) Creatinine 2.1 mg/dL High (0.7-1.2) Sodium 134 mmol/L (133-145) Potassium 5.3 mmol/L High (3.6-5.2) Chloride 107 mmol/L (98-107) Bicarbonate 16 mmol/L Low (22-29) Anion Gap 11 (4-17) Albumin 4.5 GM/DL (3.4-4.8) Calcium 9.4 mg/dL (8.6-10.5) Bilirubin,Total 0.3 mg/dL (0-1.2 ) Total Protein 6.8 GM/DL (6.2-8.2 ) Ag Ratio 2.0 Ast 20 U/L (0-40) Alk Phos 101 U/L (40-129) Alt 28 U/L (0-41) Estimated GFR Creatinine 33 ML/MIN/1.7 3M2 8 Laboratory test finding 08/23/2022 Inhouse Glucose Fingerstick 278 Hemoglobin A1c 8.7% Laboratory test finding 05/19/2022 Inhouse Glucose Fingerstick 105 Hemoglobin A1c 8.2% Comprehensive Metabolic Panl 02/17/2022 [facility] Glucose 144 mg/dL High (70-99) BUN 43 mg/dL High (8-23) Creatinine 2.0 mg/dL High (0.7-1.2) Sodium 138 mmol/L (133-145) Potassium 5.3 mmol/L High (3.6-5.2) Chloride 107 mmol/L (98-107) Bicarbonate 18 mmol/L Low (22-29) Anion Gap 13 (4-17) Albumin 4.5 GM/DL (3.4-4.8) Calcium 9.0 mg/dL (8.6-10.5) Bilirubin,Total 0.4 mg/dL (0-1.2 ) Total Protein 7.1 GM/DL (6.2-8.2 ) Ag Ratio 1.7 Ast 24 U/L (0-40) Alk Phos 139 U/L High (40-129) Alt 39 U/L (0-41) Estimated GFR Creatinine 36 ML/MIN/1.7 3M2 9 Lipid Panel 02/17/2022 [facility] Cholesterol, Total 142 mg/dL (<200) Triglyceride 106 mg/dL (<150) HDL Chol 50 mg/dL (>39) LDL Cholesterol, Calculated 71 mg/dL (0-130) Non HDL Cholesterol (Calc) 92 mg/dL (<160) Laboratory test finding 02/17/2022 [facility] Hemoglobin A1c 8.5 % High (4.0-5.6) 10 Complete Abc With Diff 02/17/2022 [facility] WBC 6.1 K/MM3 (4.0-11.0) RBC 4.25 M/MM3 Low (4.70-6.10 ) HGB 12.6 GM/DL Low (13.7-17.1 ) HCT 39.5 % Low (40.5-50.0 ) MCV 92.9 FL (80.0-94.0 ) MCH 29.6 pg (27.0-34.0 ) MCHC 31.9 g/dL Low (33.0-37.0 ) PLT 147 K/MM3 Low (150-460) RDW-SD 44.6 FL (<47.0) MPV 11.2 FL (9.4-12.4) Automated NRBC 0.0 #/100WBC'S Abs. NRBC 0.0 K/MM3 Neut # 4.1 K/MM3 (1.3-7.0) Lymph # 1.4 K/MM3 (0.8-3.1) [place]# 0.4 K/MM3 (0.4-1.3) Eo # 0.2 K/MM3 (0.0-0.4) Baso # 0.0 K/MM3 (0.0-0.1) Abs. Imm Gran 0.0 K/MM3 Neut 66.3 % (44-76) Lymph 22.6 % (15-43) Monocyte 7.0 % (4.5-10.5) Eo 3.3 % (0-6) Baso 0.5 % (0-2) Imm Gran 0.3 % Laboratory test finding 02/17/2022 [facility] TSH With Reflex To FT4 4.62 uIU/mL High (0.4-4.2) Urinary Microalbumin 02/17/2022 [facility] Micro-Albumin 381.5 mg/L High (<20) 11 Malb/Creat Ratio 783.4 MG/GM High (0-20) Urine Creat For Micro Albumin 48.7 mg/dL Urinalysis Complete 02/17/2022 [facility] Appear/Color LIGHT YELLOW 12 SP. [place] 1.015 (1.002-1.0 30) Urine PH 5.5 (5.0-8.0) Urine Albumin 1+ Abnormal (Neg) Urine Glucose 4+ Abnormal (Neg) Urine Ketones NEGATIVE (Neg) Urine Bilirubin NEGATIVE (Neg) Urine Hemoglobin NEGATIVE (Neg) Urine Nitrite NEGATIVE (Neg) Urine Leukocyte NEGATIVE (Neg) Urobilinogen NORMAL mg/dL (Norm) Urine WBCs <1 /HPF (0-5) Urine RBCs NONE SEEN /HPF (0-3) Laboratory test finding 02/17/2022 [facility] Free T4 0.88 ng/dL (0.70-1.80 ) Laboratory test finding 02/17/2022 Inhouse Glucose Fingerstick 155 1 A courtesy copy of t his report has been sent to the patient 2 Microscopic was gia cated and was performed. 3 Prediabetes: 5.7 - 6 .4 Diabetes: >6.4 Glycemic control for adults with diabetes: <7.0 4 Results confirmed on dilution. 5 Normal: 0 - 29 Moderately increased: 30 - 300 Severely increased: >300 6 The urine microalbum in test is designed to monitor renal function. When screening for Bence Huffman proteinuria, urine electrophoresis is recommended. 7 CLEAR 8 Creatinine based est imated glomerular filtration (eGFR) in adults is calculated using the National Kidney Foundation recommended 2020 CKD-EPI equation. Estimates GFR from serum creatinine, age and sex. 9 Creatinine based est imated glomerular filtration (eGFR) in adults is calculated using the National Kidney Foundation recommended 2020 CKD-EPI equation. Estimates GFR from serum creatinine, age and sex. 10 MONITORING: In known diabetic patients, hemoglobin A1c targets should be discussed with health care provider. DIAGNOSTIC USE: The [place] Diabetes Association (ADA) and the World Health Organization (WHO) recommend the use of HbA1c to diagnose diabetes using a threshold of 6.5%. Patients who have an HbA1c between 5.7% and 6.4% are considered at increased risk for developing diabetes in the future. CAUTION: Falsely low HbA1c results may be observed in patients with hemolytic anemia, homozygous forms of abnormal hemoglobin (e.g. SS, CC, SC), , recent blood loss or hemoglobin F greater than 7%. Fructosamine may be used as an alternate test in these cases. REFERENCE: ADA: Standards of Medical Care in Diabetes 2020, The Journal of Clinical and Applied Research and Education Volume 43, Supplement 1 11 The urine microalbum in test is designed to monitor renal function. When screening for Bence Huffman proteinuria, urine electrophoresis is recommended. 12 CLEAR Procedures Date Code Description Status 04/04/2023 NSHOWOFF No Show Office Visit Complet ed 11/24/2022 NSHOWOFF No Show Office Visit Complet ed 08/23/2022 57207 Glucose Monitori ng From Interstital Tissue Fluid Minimum 72 Hours Completed 11/04/2021 NSHOWOFF No Show Office Visit Complet ed 07/13/2021 NSHOWOFF No Show Office Visit Complet ed Medical Devices Description No Information Available Encounters Type Date Location Provider Dx Diagnosis Office Visit 12/18/2023 12:56p Main Office Curtis Gotti M.D. E11.8 Type 2 diabetes mellitus with unspecified complications I63.9 Cerebral infarction, unspecified Assessments Date Code Description Provider 12/18/2023 E11.8 Complication due to diabetes mellitus Curtis Gotti M.D. 12/18/2023 I63.9 Cerebral infarction, unspeci fied Curtis Gotti M.D. Plan of Treatment No Information Available Functional Status Description No Information Available Mental Status Description No Information Available Referrals Refer to Dr Reason for Referral Status Appt Curtis Beal M.D. Created [address] [place] [address] [address] [place] [address] [phone]
[2024-03-14 10:49] LABS: MANUAL DIFF FLAG NO
[2024-03-14 11:20] LABS: Basophils Percent Auto 0.5 % (0-2); Eosinophils Absolute Auto 0.1 X10*3/uL (0.0-0.4); Eosinophils Percent Auto 2.1 % (0-4); Hematocrit 42.2 % (42.0-52.0); Hemoglobin 13.9 g/dl (14.0-18.0); Imm Gran Abs Auto 0.02 X10*3/uL (0.00-0.03); Imm Gran Pct Auto 0.4 % (0.0-0.4); Lymphocytes Absolute Auto 1.2 X10*3/uL (1.2-4.9); Lymphocytes Percent Auto 20.4 % (20-40); Mean Corpuscular HGB Conc 32.9 g/dl (31.0-36.0); Mean Corpuscular Volume 91.1 fL (80.0-98.0); Mean Platelet Volume 10.8 fL (9.4-12.4); Monocytes Absolute Auto 0.4 X10*3/uL (0.1-1.2); Monocytes Percent Auto 6.6 % (2-11); Neutrophils Absolute Auto 3.9 x10*3/uL (2.0-8.3); Platelet Count 156 X10*3/uL (160-400); Red Blood Count 4.63 X10*6/uL (4.60-5.80); White Blood Count 5.6 X10*3/uL (4.8-10.8)
[2024-03-14 11:24] LABS: Estimated Average Glucose 174 mg/dL; Hemoglobin A1C 221.2499 umol/L; Hemoglobin A1c % 7.7 % (<6.0)
[2024-03-14 11:50] LABS: Alanine Aminotransferase 43 U/L (0-40); Albumin Level 4.1 g/dL (3.5-5.0); Alkaline Phosphatase 123 U/L (39-117); Anion Gap 13 (12-20); Aspartate Amino Transferase 30 U/L (5-37); Bilirubin Total 0.4 mg/dL (0.0-1.0); Blood Urea Nitrogen 41 mg/dL (9-16); Calcium 8.6 mg/dL (8.4-10.2); Carbon Dioxide 20 mmol/L (22-29); Chloride 110 mmol/L (96-108); Cholesterol 186 mg/dL (<200); Estimated Glomerular Filt Rate 24; Glucose Fasting 201 mg/dL (60-99); HDL Cholesterol 50 mg/dL (>40); LDL Cholesterol Calculated 111 mg/dL (<100); Potassium 5.2 mmol/L (3.3-5.1); Sodium 138 mmol/L (135-145); Total Protein 7.3 g/dL (6.5-8.0); Triglycerides 125 mg/dL (<150)
[2024-03-14 12:06] LABS: Prostate Specific Antigen 0.92 ng/mL (<0.05-4.0)
[2024-03-14 12:12] LABS: Creatinine Urine 68.76 mg/dL
== END 2024-03-14 10:24 | disposition home or self-care (01) ==
LOC: HO.LAB 10:23
PROVIDERS: PCP Internal Medicine; Visit Provider Internal Medicine
DX: E11.9 Type 2 diabetes mellitus without complications (principal); I10 Essential (primary) hypertension; N18.9 Chronic kidney disease, unspecified; Z12.5 Encounter for screening for malignant neoplasm of prostate
CPT/HCPCS: 36415; 80053; 80061; 82043; 82570; 83036; 84153; 85025

== ENCOUNTER 2024-08-07 15:08 | Outpatient (AMB) | payer MEDICARE, SELFPAY ==
--- NOTE | 2024-08-07 14:13 | A.OFFPC_ITS ---
Vital Signs 08/07/24 15:26 Height 6 ft Weight 208 lb BMI 28.2 BP 120/70 Blood Pressure Location Lt brachial Position Sitting Pulse 65 Pulse Source Pulse Oximeter Temp 97.3 F Temp Source Axillary Pulse Oximetry (%) 98 Oxygen Delivery Method Room Air Intake Visit Reasons: Routine - see comments Setup Operator Required: No Accompanied by: Self / Same As Patient Allergies No Known Allergies [No Known Allergies*] Allergy (Verified 08/07/24 14:14) Tobacco use date assessed: 08/07/24 Fall risk assessment: 1 Fall in past year Last assessed Fall Risk: 08/07/24 Dental Screening Dental Screen Date: 08/07/24 Did you have a dental visit in the last 12 months?: Yes Did you have a dental problem in the last 6 months where you did not have access to dental care?: No [facility] Medical History (Updated 08/07/24 @ 16:02 by Ender Brooks MD) Diabetes Family History (Updated 08/07/24 @ 15:34 by Genesis Mac MA) Mother No problems noted. Father No problems noted. Social History Housing: House Alcohol intake: current Patient Tobacco Use Status: Former Tobacco user e-Cigarette/Vaping Use: Former Use service: No Current occupational status: retired Cognitive needs: No Hearing needs: No Vision needs: Yes (rx glasses) Questionnaire PHQ-9 Over the last 2 weeks, how often have you been bothered by any of the following problems? 1. Little interest or pleasure in doing things: not at all 2. Feeling down, depressed, or hopeless: not at all 3. Trouble falling or staying asleep, or sleeping too much: not at all 4. Feeling tired or having little energy: not at all 5. Poor appetite or overeating: not at all 6. Feeling bad about yourself - or that you are a failure or have let yourself or your family down: not at all 7. Trouble concentrating on things, such as reading the newspaper or watching television: not at all 8. Moving or speaking so slowly that other people could have noticed. Or the opposite - being so fidgety or restless that you have been moving around a lot more than usual: not at all 9. Thoughts that you would be better off or of hurting yourself in some way: not at all Total score: 0 Source: Developed by Drs. Nino Marcum, Guido Santos and colleagues, with an educational sally from [employer] Thrive Questionnaire Date Thrive assessed: 08/07/24 I am a: Patient Within the past 12 months, did the food you bought not last and you didn't have the money to get more?: Never true Within the past 12 months, did you worry whether your food would run out before you got money to buy more?: Never true Do you have trouble paying for medicines?: No Do you have trouble getting transportation to medical appointments?: No Do you have trouble paying your heating and electricity bill?: No Do you have trouble taking care of your child, family member or friend?: No Do you have trouble with day-to-day activities such as bathing, preparing meals, shopping, managing finances, etc.?: No Are you currently unemployed and looking for a job?: No Are you interested in more education?: No THRIVE Score: 0 AUDIT C Alcohol Use Questionnaire (AUDIT-C) 1. How often do you have a drink containing alcohol?: Monthly or less 2. How many drinks containing alcohol do you have on a typical day when you are drinking?: 1 or 2 3. How often do you have six or more drinks on one occasion?: Less than monthly Total Score: 2 CHINMAY-7 AMB Questionnaire CHINMAY-7 Date CHINMAY - 7 assessed: 08/07/24 Feeling nervous, anxious, or on edge: 0 = Not at all Not being able to stop or control worryin = Not at all Worrying too much about different things: 0 = Not at all Trouble relaxin = Not at all Being so restless that it is hard to sit still: 0 = Not at all Becoming easily annoyed or irritable: 0 = Not at all Feeling afraid as if something awful might happen: 0 = Not at all Total CHINMAY-7 score (0-4 normal; 5-9 mild; 10-14 moderate; 15-21 severe): 0 Source: Developed by Drs. Nino Marcum, Guido Santos and colleagues, with an educational sally from [employer] Physical exam (Primary Care) Vital Signs: Last Vital Signs Temp 97.3 F 08/07/24 15:26 Pulse 65 08/07/24 15:26 BP 120/70 08/07/24 15:26 Pulse Ox 98 08/07/24 15:26 Oxygen Delivery Method Room Air 08/07/24 15:26 BMI result Body Mass Index 28.2 Tobacco/Smoking Status: Tobacco use Status Tobacco use date assessed 08/07/24 08/07/24 14:15 Patient Tobacco Use Status Former Tobacco user 08/07/24 15:34 e-Cigarette/Vaping Use Former Use 08/07/24 15:34 PHQ-9: PHQ-9 Score PHQ-9: Total score 0 08/07/24 15:34 Thrive Assessment: Date of Thrive Assessment Date Thrive assessed 08/07/24 08/07/24 14:15 Coding Level of Care Code New Pt Level 4 (09913) Complex EM visit Add On G2211 Diagnoses Diabetes E11.9 Assessment & Plan Assessment & Plan (1) Diabetes: Code(s): E11.9 - Type 2 diabetes mellitus without complications Category: Medical Plan: History of Present Illness - The patient is a 69-year-old male presenting with a request for Ezekiel 3 sensors to monitor blood glucose levels. He has been managing his diabetes with insulin and Mounjaro, a medication that suppresses hunger, which he has found beneficial. - Diagnosed with diabetes mellitus type 2 at age 39 and has been managing the condition for approximately 30 years. - Reports using short-acting insulin (Humalog) with meals, adjusting the dose based on carbohydrate intake. - Previously managed diabetes with an levee superintendent but ceased visits due to outstanding fees, now seeking a new provider. - Acknowledges prior A1c level around 7% with variable sugar levels; intends to improve control. - History of stroke, contributing to current retired status. Social History - Retired due to a history of stroke. 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 Review of Systems - Endocrine: Reports diabetes mellitus type 2 management with insulin and Mounjaro. - Neurological: Denies any current pain or discomfort. - General: Denies any additional health concerns beyond diabetes management. Physical Exam General: Cooperative and healthy appearing Nutritional Appearance: Well nourished Orientation/consciousness: Patient oriented x3 Limitations: No limitations Head: Normal to inspection General: Appearance normal, both eyes and all related structures Neck: Normal visual inspection Chest: Normal palpation of entire chest wall Respiratory: N ormal respiratory effort Neurology: Patient oriented x3, history of stroke Results Plan 1. Diabetes Mellitus Type 2 - Plan for Ezekiel 3 sensors to monitor blood glucose levels. - Continue Humalog with meals, adjusting doses as needed. - Follow-up with Dr. Fields, a new levee superintendent. - Repeat A1c test for glycemic evaluation. 2. History Of Stroke - Included as part of medical history; no changes in management discussed. Discussion Notes During the visit, I discussed the patient's ongoing management of type 2 diabetes mellitus, emphasizing the importance of obtaining Ezekiel 3 sensors for accurate blood glucose monitoring. We talked about continuing the use of Humalog insulin with meals, adjusting doses based on carbohydrate intake. The patient expressed a desire to follow up with a new levee superintendent, Dr. Fields, for continued diabetes care. We agreed to repeat the A1c test to assess current glycemic control. The patient's history of stroke was acknowledged as relevant to his retired status but required no change in management at this time. Patient Instructions - Obtain Ezekiel 3 sensors for blood sugar monitoring. - Continue using Humalog insulin with meals, adjusting doses based on food intake. - Follow up with Dr. Fields for diabetes management. - Repeat the A1c test as advised. - Contact the office if there are issues with obtaining the Ezekiel 3 sensors. Medications: Discontinued ondansetron Discontinued Reason: Patient no longer taking 4 mg PO Q6-8H PRN 14 tabs 0RF nausea and vomiting
[2024-08-07 15:26] VITALS: BP 120/70; PULSE 65; TEMP 36.3; O2SAT 98; BMI 28.2
--- OUTSIDE RECORDS SUMMARY | 2024-08-07 15:52 | XMS_ITS | Continuity of Care Document ---
Author Organization [facility] [address] [facility] [address] [place] [address] Phone [phone] Care Team Providers Care Mold Filler And Drainer Name Role Phone Sanford Urrutia M.D. Care Team Information Receiv er [phone] Problems Active Problems Provider Date Type 2 [...] Date Freestyle Ezekiel 3 Plus/Sensor/Glucose Monitoring SystemMisc Use as Directed 3units Curtis Gotti M.D. 12/21/2023 Freestyle Ezekiel 3/[place]/Glucose Monitoring Qtfvlg4Kjqqzq Device use with sensors to check blood sugar dx:e11.9 1units Curtis Gotti M.D. 12/20/2023 Ipjkjejr9wx/0.5ML Solution Pen-Inject 1 injection every week as directed 6ml Curtis Gotti M.D. 11/21/2023 Freestyle Ezekiel 3/Sensor/Glucose Monitoring Ygatmu2Cicawy Misc as directed 3unmike Gotti M.D. 07/18/2023 Xvfmyewzm63vb Tablets 1 tablet by mouth every day 90tabs Curtis Gotti M.D. 07/18/2023 Novolog Hdwqosn566Bsed/ML Solution Pen-Inject Inject 10-15 Units Subcutaneously 3 Times A Day 60units E11.9 Curtis Gotti M.D. 08/09/2022 Lantus Nsocaulx132Mbns/ML Solution Pen-Inject Inject 54 Units In Am 60ml E11.8 Curtis Gotti M.D. 02/07/2022 Mrunursbke51vc Tablets Take 1/2 Tablet Daily 90tabs Curtis Gotti M.D. Atorvastatin Gqmybsh36cp Tablets 1 by mouth every day 30tabs Sanford Urrutia M.D. Losartan Alcytxtyw52ic Tablets 1 by mouth every day 90tabs Sean Mendoza MD Vital Signs Date Vital Result Comment 11/27/2023 11:02am Height 72 inches 6'0 Weight 220.12 lb BMI (Body Mass Index) 29.9 kg/m2 Results Test Acquired Date Facility Test Result H/L Range Note Glucose Fingerstick 11/27/2023 Inhouse Glucose Fingerstick 143 Comp. Metabolic [...] Balta 30 mg/dL 5-40 LDL Chol Calc ([facility]) 58 mg/dL 0-99 LDL Calc Comment: TNP Urinalysis, Complete 11/17/2023 [facility] Specific [place] 1.016 1.005-1.03 0 pH 5.5 5.0-7.5 Urine-Color [...] 1.4-7.0 Lymphs (Absolute) 1.3 x10E3/uL 0.7-3.1 Monocytes(Absol nikolai) 0.3 x10E3/uL 0.1-0.9 Eos (Absolute) 0.1 x10E3/uL 0.0-0.4 Baso (Absolute) 0.0 x10E3/uL 0.0-0.2 Immature Granulocytes 0 % Not Estab. Immature Grans (Abs) 0.0 x10E3/uL 0.0-0.1 NRBC TNP Hematology Comments: TNP TSH Rfx on Abnormal to Free T4 11/17/2023 [facility] TSH Rfx on Abnormal to Free T4 3.300 uIU/mL 0.450-4.50 0 Albumin/Creatin ine Ratio, Random Urine 11/17/2023 [facility] Creatinine, Urine 65.7 mg/dL Not Estab. Albumin, Urine 476.7 ug/mL Not Estab. 4 Alb/Creat Ratio 726 mg/gcreat High 0-29 5 Glucose Fingerstick 10/30/2023 Inhouse Glucose Fingerstick 189 Hemoglobin A1c 10/30/2023 Inhouse Hemoglobin A1c 8.3% Glucose Fingerstick 07/18/2023 Inhouse Glucose Fingerstick 237 Hemoglobin A1c 07/18/2023 Inhouse Hemoglobin A1c 7.7% TSH With Reflex To FT4 08/24/2022 [facility] TSH With Reflex To FT4 3.54 uIU/mL (0.4-4.2) Urinary Microalbumin 08/24/2022 [facility] Micro-Albumin 305.0 mg/L High (<20) 6 Malb/Creat Ratio 509.3 MG/GM High (0-20) Urine Creat For Micro Albumin 59.9 mg/dL Complete Abc With Diff 08/24/2022 [facility] WBC 4.9 K/MM3 (4.0-11.0) RBC [...] K/MM3 (1.3-7.0) Lymph # 1.3 K/MM3 (0.8-3.1) Sharkey# 0.4 K/MM3 (0.4-1.3) Eo # 0.1 K/MM3 (0.0-0.4) Baso # 0.0 K/MM3 (0.0-0.1) Abs. Imm Gran 0.0 K/MM3 Neut 62.6 % (44-76) Lymph 26.7 % (15-43) Monocyte 7.2 % (4.5-10.5) Eo 2.7 % (0-6) Baso 0.4 % (0-2) Imm Gran 0.4 % Urinalysis Complete 08/24/2022 [facility] Appear/Color LIGHT YELLOW 7 SP. [place] 1.019 (1.002-1.0 30) Urine PH 6.0 (5.0-8.0) Urine Albumin 1+ Abnormal (Neg) Urine Glucose 4+ Abnormal (Neg) Urine Ketones NEGATIVE (Neg) Urine Bilirubin NEGATIVE (Neg) Urine Hemoglobin NEGATIVE (Neg) Urine Nitrite NEGATIVE (Neg) Urine Leukocyte NEGATIVE (Neg) Urobilinogen NORMAL mg/dL (Norm) Urine WBCs NONE SEEN /HPF (0-5) Urine RBCs <1 /HPF (0-3) Lipid Panel 08/24/2022 [facility] Cholesterol, Total 175 mg/dL (<200) Triglyceride 213 mg/dL High (<150) HDL Chol 41 mg/dL (>39) LDL Cholesterol, Calculated 91 mg/dL (0-130) Non HDL Cholesterol (Calc) 134 mg/dL (<160) Comprehensive Metabolic Panl 08/24/2022 [facility] Glucose 184 mg/dL High (70-99) [...] Estimated GFR Creatinine 33 ML/MIN/1.7 3M2 8 Glucose Fingerstick 08/23/2022 Inhouse Glucose Fingerstick 278 Hemoglobin A1c 08/23/2022 Inhouse Hemoglobin A1c 8.7% Glucose Fingerstick 05/19/2022 Inhouse Glucose Fingerstick 105 Hemoglobin A1c 05/19/2022 Inhouse Hemoglobin A1c 8.2% Comprehensive Metabolic Panl 02/17/2022 [facility] Glucose 144 mg/dL High (70-99) [...] 36 ML/MIN/1.7 3M2 9 Lipid Panel 02/17/2022 [facility] Cholesterol, Total 142 mg/dL (<200) Triglyceride 106 mg/dL (<150) HDL Chol 50 mg/dL (>39) LDL Cholesterol, Calculated 71 mg/dL (0-130) Non HDL Cholesterol (Calc) 92 mg/dL (<160) Hemoglobin A1c 02/17/2022 [facility] Hemoglobin A1c 8.5 % High (4.0-5.6) 10 Complete Abc With Diff 02/17/2022 [facility] WBC 6.1 K/MM3 (4.0-11.0) RBC [...] K/MM3 (1.3-7.0) Lymph # 1.4 K/MM3 (0.8-3.1) Sharkey# 0.4 K/MM3 (0.4-1.3) Eo # 0.2 K/MM3 (0.0-0.4) Baso # 0.0 K/MM3 (0.0-0.1) Abs. Imm Gran 0.0 K/MM3 Neut 66.3 % (44-76) Lymph 22.6 % (15-43) Monocyte 7.0 % (4.5-10.5) Eo 3.3 % (0-6) Baso 0.5 % (0-2) Imm Gran 0.3 % TSH With Reflex To FT4 02/17/2022 [facility] TSH With Reflex To FT4 4.62 uIU/mL High (0.4-4.2) Urinary Microalbumin 02/17/2022 [facility] Micro-Albumin 381.5 mg/L High (<20) 11 Malb/Creat Ratio 783.4 MG/GM High (0-20) Urine Creat For Micro Albumin 48.7 mg/dL Urinalysis Complete 02/17/2022 [facility] Appear/Color LIGHT YELLOW 12 SP. [place] 1.015 (1.002-1.0 30) Urine PH 5.5 (5.0-8.0) Urine Albumin 1+ Abnormal (Neg) Urine Glucose 4+ Abnormal (Neg) Urine Ketones NEGATIVE (Neg) Urine Bilirubin NEGATIVE (Neg) Urine Hemoglobin NEGATIVE (Neg) Urine Nitrite NEGATIVE (Neg) Urine Leukocyte NEGATIVE (Neg) Urobilinogen NORMAL mg/dL (Norm) Urine WBCs <1 /HPF (0-5) Urine RBCs NONE SEEN /HPF (0-3) Free T4 02/17/2022 [facility] Free T4 0.88 ng/dL (0.70-1.80 ) Glucose Fingerstick 02/17/2022 Inhouse Glucose Fingerstick 155 1 A [...] calculated using the National Kidney Foundation recommended 202 CKD-EPI equation. Estimates GFR from serum creatinine, age and sex. 10 MONITORING: In known diabetic patients, hemoglobin A1c targets should be discussed with health care provider. DIAGNOSTIC USE: The [place] Diabetes Association (ADA) and the World Health [...] No Show Office Visit Complet ed 08/23/2022 20481 Glucose Monitori ng From Interstital Tissue Fluid [...] to Dr Reason for Referral Status Appt Benja e Curtis Gotti M.D. Created [address] [place] [address] Drive [address] [place] [address] [phone] Curtis Gotti M.D. Closed [address] [place] [address] Drive [address] [place] [address] [phone]
== END 2024-08-07 15:59 | disposition home or self-care (01) ==
LOC: HO.HMCHD 15:09
PROVIDERS: PCP Internal Medicine; Visit Provider Internal Medicine
DX: E11.9 Type 2 diabetes mellitus without complications (principal)

== ENCOUNTER → 2024-08-07 15:08 | Outpatient (BNVA) | payer MEDICARE, SELFPAY | PROVIDERS: PCP Internal Medicine; Visit Provider Internal Medicine | DX: E11.9 Type 2 diabetes mellitus without complications (principal); Z86.73 Personal history of transient ischemic attack (TIA), and cerebral infarction without residual deficits; Z79.4 Long term (current) use of insulin; Z13.30 Encounter for screening examination for mental health and behavioral disorders, unspecified | CPT/HCPCS: 96127; 99202 ==

== ENCOUNTER 2024-09-18 08:48 | Outpatient (AMB) | payer MEDICARE, SELFPAY ==
--- NOTE | 2024-09-18 08:50 | A.OFFVIS_ITS ---
Vital Signs 09/18/24 08:55 Height 6 ft Weight 216 lb 4.375 oz BMI 29.3 BP 94/60 Blood Pressure Location Rt brachial Position Sitting Pulse 50 Pulse Source Pulse Oximeter Pulse Oximetry (%) 94 Oxygen Delivery Method Room Air Intake Visit Reasons: Type 2 diabetes Intake Note: New patient internally referred by PCP for T2DM. Patient does not have a glucometer, strips and lancets. Patient receives Ezekiel 3 supplies through: Pharmacy Last Diabetic Eye exam: Due, 2-3 years has an appointment October 01, 2024 Last Podiatry Visit: Does not see a Corporate Communications Manager, requesting referral. Random Glucose: 178 mg/dl HgA1C: 8.4% 09/18/2024 Experimental Mechanic Spacecraft Required: No Accompanied by: Self / Same As Patient Allergies No Known Allergies (No Known Allergies*) Allergy (Verified 09/18/24 08:58) Medication List - Last Reconciled 09/18/24 by Nino Fields MD aspirin 81 mg PO DAILY atorvastatin 40 mg PO DAILY blood-glucose sensor (anchor.travelyle Ezekiel 3 Sensor device) As directed empagliflozin (Jardiance) 10 mg PO DAILY insulin aspart U-100 (Novolog FlexPen U-100 Insulin aspart) subcut losartan 25 mg PO DAILY tirzepatide (Mounjaro) mg subcut HPI Comments Details: 69 YO M who is seen in consultation for T2DM in setting of CKD Stage 4 at the request of PCP. Initially diagnosed with T2DM in since age 39 . Was seeing endo at [facility] Was initially started on treatment with metformin . Current regimen Mounjaro 2.5 mg Jardiance 10 mg QD Novolog 20-40 units . based on carbs Unfortunately, patient did not bring sensor, glucometer or log book to visit Reports low sugars occasionally . Treats lows with sugar . Not Checks sugar after to ensure it is rising. Most recent A1C 8.4 , . Family history of T2DM in father, mother , sister brothers . Has eyes checked yearly, last eye exam 3 yrs ago , seeing Dr. Ballesteros in near future has retinopathy in left eye. Has neuropathy, last foot exam 2-3 yrs ago , sees podiatry. Has nephropathy at [facility] , on CLAUDIO/ARB. Has HLD, on statin. Last LDL as measured on 111. Denies CAD.Has CVA Had diabetes educationbut not recently [facility] Medical History (Updated 08/07/24 @ 16:02 by Ender Brooks MD) Diabetes Surgical History (Updated 09/18/24 @ 09:00 by AARON Clinton) No pertinent past surgical history Family History (Updated 08/07/24 @ 15:34 by Genesis Mac MA) Mother No problems noted. Father No problems noted. Social History Housing: House Alcohol intake: current Patient Tobacco Use Status: Former Tobacco user e-Cigarette/Vaping Use: Former Use service: No Current occupational status: retired Cognitive needs: No Hearing needs: No Vision needs: Yes (rx glasses) Physical Exam Vital Signs: Last Vital Signs Pulse 50 09/18/24 08:55 BP 94/60 09/18/24 08:55 Pulse Ox 94 09/18/24 08:55 Oxygen Delivery Method Room Air 09/18/24 08:55 BMI result Body Mass Index 29.3 Absence of Cushingoid features. Absence of acromegalic features. Neck exam reveals nl size thyroid about 15 gms. No thyroid nodules palpable. No carotid bruits present. Lungs CTA. Heart S1 S2, Reg R/R. No M/R/ G. Skin exam reveals absence of vitiligo or acanthosis nigricans. Abdominal exam reveals Soft NT/ND with NA BS. No organomegaly present. Neck Other: . Extrem Other: Visual exam of foot performed. Left 1st toe with superficial ulcerations and open lesions. R LE has superficial ulcerations No onchomycosis, no callouses.Pulses 2 + distally Sensation intact to monofilament exam. Vibratory sensation sensed is decreased with 128 Hz tuning fork Results AMB Hemoglobin A1c AMB Hemoglobin A1c 8.4 % Last Edit by AARON Clinton on 09/18/24 09:20 Results Reviewed Results Reviewed: Laboratory Last Values Glucose (Clinic) 178 mg/dL (60-115) H 09/18/24 09:09 Assessment & Plan Assessment & Plan (1) Diabetes: Code(s): E11.9 - Type 2 diabetes mellitus without complications Category: Medical Plan: This is a 69-year-old white male with a history of type 2 diabetes being treated with Mounjaro and Jardiance with fair glycemic control with known microvascular and macrovascular complications namely CVA and CKD stage 4 Plan is to have the patient see the CDE and watch crystal edge grinder. Can not make any adjustments to the regimen because of lack of data today. Will have patient return with sensor for follow up. Will probably need basal insulin in combination with prandial insulin in addition to G LP 1 and Jardiance. Could consider in future switching the Mounjaro to Ozempic considering the history of stroke. Would shoot for HbA1c around 7.5% considering patient's age and comorbidities. Will have patient follow up with primary care diabetes team in 3-4 weeks . I also arranged for the patient to see wound care in 2 days to address his toe ulceration as well as superficial ulcerations on the lower extremit Orders: Orders AMB Hemoglobin A1c Today E11.9 - Type 2 diabetes mellitus without complications Lipid Panel 2 Months E11.9 - Type 2 diabetes mellitus without complications Referrals Nutrition/Dietitian Referral E11.9 - Type 2 diabetes mellitus without complications Diabetes Education Referral E11.9 - Type 2 diabetes mellitus without complications Wound Care Referral E11.621 - Type 2 diabetes mellitus with foot ulcer, L97.529 - Non-pressure chronic ulcer of other part of left foot with unspecified severity Medications: New atorvastatin (Lipitor) 80 mg PO DAILY 30 tabs 5RF Coding Level of Care Code New Pt Level 5 (85277) Diagnoses Diabetes E11.9
[2024-09-18 08:55] VITALS: BP 94/60; PULSE 50; O2SAT 94; BMI 29.3
--- OUTSIDE RECORDS SUMMARY | 2024-09-18 09:02 | XMS_ITS | Clinical Summary ---
Author Organization [facility] Address [address] [address] Phone Care Team Providers Care Netezza Developer Name Role Phone Sanford Urrutia MD Primary Care Provider [phone] Allergies Active Allergy Reactions Criticality Noted Date Comments Penicillin G 08/13/2020 Octacosanol 08/28/2023 Medications aspirin (ST SOPHIE) 81 MG EC tablet Take 1 tablet by mouth 1 (one) time each day Active insulin glargine (Lantus) 100 UNIT/ML injection Inject 60 Units under the skin 1 (one) time each day Active Insulin Lispro, 1 Unit Dial, (HumaLOG KWIKPEN) 100 UNIT/ML solution pen-injector 10-20 mcg 3 times a day Active simvastatin (ZOCOR) 80 MG tablet Take 1 tablet by mouth 1 (one) time each day Active Continuous Blood Gluc Sensor (FreeStyle Ezekiel 2 Sensor) misc Activ e sodium bicarbonate 650 MG tablet Take 1 tablet (650 mg total) by mouth in the morning and 1 tablet (650 mg total) in the evening. 11/20/2023 Active Empagliflozin 10 MG tablet Take 10 mg by mouth 1 (one) time each day in the morning 11/20/2023 Active losartan (COZAAR) 25 MG tablet Take 1 tablet (25 mg total) by mouth 1 (one) time each day 90 tablet 3 05/20/2024 Active Active Problems Problem Noted Date Diagnosed Date Stage 3b chronic kidney disease 02/06/2023 Hypertensive chronic kidney disease 02/06/2023 Metabolic acidosis, normal anion gap (NAG) 02/06 Type 2 diabetes mellitus wit h diabetic chronic kidney disease 02/06/2023 Cerebrovascular accident 02/17/2022 Type 2 diabetes mellitus 02/16/2022 Neuropathy due to diabetes mellitus 08/13/2020 Essential hypertension 08/13/2020 Resolved Problems Problem Noted Date Diagnosed Date Resolved Date Chronic kidney disease stage 3 08/13/2020 02/06/2023 Immunizations Immunization Administration Dates Next Due Pneumococcal Polysaccharide 05/26/2016 Family History Medical History Relation Comments Diabetes Father Cancer Mother Dementia Mother Diabetes Mother Diabetes Sibling Relation Status Comments Father Mother Alive Sibling Social History Tobacco Use Types Packs/Day Years Used Date Smoking Tobacco: Never Alcohol Use Standard Drinks/Week Comments Yes 0 (1 standard drink = 0.6 oz pure alcohol) Alcoholic Drinks/day: Occasional social drink Sex and Gender Information Value Date Recorded Sex Assigned at Not on file Legal Sex Male 5:09 PM EST Gender Identity Not on file Sexual Orientation Not on file Last Filed Vital Signs Vital Sign Reading Time Taken Comments Blood Pressure 132/76 05/20/2024 2:12 PM EDT Pulse 57 05/20/2024 2:12 PM EDT Temperature - - Respiratory Rate - - Oxygen Saturation 98% 10/13/2023 9:42 AM EDT Inhaled Oxygen Concentration - - Weight 96.3 kg (212 lb 3.2 oz) 05/20/2024 2:12 P M EDT Height 180.3 cm (5' 11 ) 04/09/2020 12:00 PM EST Body Mass Index 29.6 04/09/2020 12:00 PM EST Plan of Treatment Upcoming Encounters Date Type Department Care Team (Late st Contact Info) Description 09/25/2024 Orders Only [facility] [address] [phone] Nir Mendoza MD [address] [phone] Stage 3b chronic kidney disease (HCC); Metabolic acidosis, normal anion gap (NAG); Hypertensive chronic kidney disease; Type 2 diabetes mellitus with diabetic chronic kidney disease (HCC) 11/18/2024 2:45 PM EDT Office Visit [facility] [address] [phone] Nir Mendoza MD [address] [phone] Health Maintenance Due Date Last Done Comments Colorectal Cancer Screening: Annual FOBT 2003 Colorectal Cancer Screening: Colonoscopy 2003 Colorectal Cancer Screening: Sigmoidoscopy 2003 Pneumococcal Vaccine: 50+ Ye ars (2 of 2 - PCV) 05/26/2017 05/26/2016 Diabetes: Hemoglobin A1C 04/12/2020 Diabetes: Ophthalmology Exam 04/12/2020 Diabetes: Pedal Pulse Checked 04/12/2020 Diabetes: Sensory Foot Exam 04/12/2020 Diabetes: Visual Foot Exam 04/12/2020 Influenza Vaccine (#1) 2024 Pneumococcal Vaccine: Peds ( 0 to 5 Years) and At-Risk Patients (6 to 49 Years) Discontinued 05/26/2016 Hepatitis B Vaccine Aged Out No longe r eligible based on patient's age to complete this topic Insurance [facility] Care Teams Netezza Developer Relationship Specialty Start Date End Date Sanford Urrutia MD [address] [place] PCP - General 03/23/20
--- OUTSIDE RECORDS SUMMARY | 2024-09-18 09:02 | XMS_ITS | Continuity of Care Document ---
Author Organization [facility] [address] [place] [address] Phone [phone] Care Team Providers Care Technology Project Manager Name Role Phone Sanford Urrutia M.D. Care Team Information Receiv er [phone] Problems Active Problems Provider Date Type 2 diabetes mellitus Curtis Gotti M.D. Onset: 02/16/2022 Cerebrovascular accident Curtis Gotti M.D. Onset: 02/17/2022 Chronic kidney disease stage 3 Curtis Gotti M.D. Onset: 09/03/2023 Diabetes mellitus Curtsi Gotti M.D. Onset: 12/18/2023 Social History Type Date Description Comments Sex Male Sex Unknown Tobacco Use Start: Unknown Never Smoked Cigarettes ETOH Use Consumes 1-2 beers per week Allergies and adverse reactions Description No Known Drug Allergies Medications Active Medications SIG Qnty Indications Order ing Provider Date Freestyle Ezekiel 3 Plus/Sensor/Glucose Monitoring SystemMisc Use as Directed 3units Curtis Gotti M.D. 12/21/2023 Freestyle Ezekiel 3/[place]/Glucose Monitoring Opjdyg3Yevcvp Device use with sensors to check blood sugar dx:e11.9 1units Curtis Gotti M.D. 12/20/2023 Gkgxdqum6yw/0.5ML Solution Pen-Inject 1 injection every week as directed 6ml Curtis Gotti M.D. 11/21/2023 Freestyle Ezekiel 3/Sensor/Glucose Monitoring Naprav0Zugxuv Misc as directed 3unmike Gotti M.D. 07/18/2023 Xbhvkxyah75ge Tablets 1 tablet by mouth every day 90tabs Curtis Gotti M.D. 07/18/2023 Novolog Diumlxc020Szkp/ML Solution Pen-Inject Inject 10-15 Units Subcutaneously 3 Times A Day 60units E11.9 Curtis Gotti M.D. 08/09/2022 Lant Erofmirv391Psdi/ML Solution Pen-Inject Inject 54 Units In Am 60ml E11.8 Curtis Gotti M.D. 02/07/2022 Qqnkprnypv69tv Tablets Take 1/2 Tablet Daily 90tabs Curtis Gotti M.D. Atorvastatin Hvimxmh06dl Tablets 1 by mouth every day 30tabs Sanford Urrutia M.D. Losartan Jbepqfgup27zx Tablets 1 by mouth every day 90tabs [...] Comment: TNP Urinalysis, Complete 11/17/2023 [facility] Specific [place] 1.016 1.005-1.03 0 pH 5.5 5.0-7.5 Urine-Color [...] 1.4-7.0 Lymphs (Absolute) 1.3 x10E3/uL 0.7-3.1 Monocytes(Absol cabazon) 0.3 x10E3/uL 0.1-0.9 Eos (Absolute) 0.1 x10E3/uL [...] 7.7% TSH With Reflex To FT4 08/24/2022 [facility] TSH With Reflex To FT4 3.54 uIU/mL (0.4-4.2) Urinary Microalbumin 08/24/2022 [facility] Micro-Albumin 305.0 mg/L High (<20) 6 Malb/Creat Ratio 509.3 MG/GM High (0-20) Urine Creat For Micro Albumin 59.9 mg/dL Complete Abc With Diff 08/24/2022 [facility] WBC 4.9 K/MM3 (4.0-11.0) [...] K/MM3 (1.3-7.0) Lymph # 1.3 K/MM3 (0.8-3.1) [place]# 0.4 K/MM3 (0.4-1.3) Eo # 0.1 K/MM3 (0.0-0.4) Baso # 0.0 K/MM3 (0.0-0.1) Abs. Imm Gran 0.0 K/MM3 Neut 62.6 % (44-76) Lymph 26.7 % (15-43) Monocyte 7.2 % (4.5-10.5) Eo 2.7 % (0-6) Baso 0.4 % (0-2) Imm Gran 0.4 % Urinalysis Complete 08/24/2022 [facility] Appear/Color LIGHT YELLOW 7 SP. [place] 1.019 (1.002-1.0 30) Urine PH 6.0 (5.0-8.0) Urine Albumin 1+ Abnormal (Neg) Urine Glucose 4+ Abnormal (Neg) Urine Ketones NEGATIVE (Neg) Urine Bilirubin NEGATIVE (Neg) Urine Hemoglobin NEGATIVE (Neg) Urine Nitrite NEGATIVE (Neg) Urine Leukocyte NEGATIVE (Neg) Urobilinogen NORMAL mg/dL (Norm) Urine WBCs NONE SEEN /HPF (0-5) Urine RBCs <1 /HPF (0-3) Lipid Panel 08/24/2022 [facility] Cholesterol, Total 175 mg/dL (<200) Triglyceride 213 mg/dL High (<150) HDL Chol 41 mg/dL (>39) LDL Cholesterol, Calculated 91 mg/dL (0-130) Non HDL Cholesterol (Calc) 134 mg/dL (<160) Comprehensive Metabolic Panl 08/24/2022 [facility] Glucose 184 mg/dL High [...] Hemoglobin A1c 8.2% Comprehensive Metabolic Panl 02/17/2022 [facility] Glucose 144 mg/dL High [...] 36 ML/MIN/1.7 3M2 9 Lipid Panel 02/17/2022 [facility] Cholesterol, Total 142 mg/dL (<200) Triglyceride 106 mg/dL (<150) HDL Chol 50 mg/dL (>39) LDL Cholesterol, Calculated 71 mg/dL (0-130) Non HDL Cholesterol (Calc) 92 mg/dL (<160) Hemoglobin A1c 02/17/2022 [facility] Hemoglobin A1c 8.5 % High (4.0-5.6) 10 Complete Abc With Diff 02/17/2022 [facility] WBC 6.1 K/MM3 (4.0-11.0) [...] K/MM3 (1.3-7.0) Lymph # 1.4 K/MM3 (0.8-3.1) [place]# 0.4 K/MM3 (0.4-1.3) Eo # 0.2 K/MM3 (0.0-0.4) Baso # 0.0 K/MM3 (0.0-0.1) Abs. Imm Gran 0.0 K/MM3 Neut 66.3 % (44-76) Lymph 22.6 % (15-43) Monocyte 7.0 % (4.5-10.5) Eo 3.3 % (0-6) Baso 0.5 % (0-2) Imm Gran 0.3 % TSH With Reflex To FT4 02/17/2022 [facility] TSH With Reflex To FT4 4.62 uIU/mL High (0.4-4.2) Urinary Microalbumin 02/17/2022 [facility] Micro-Albumin 381.5 mg/L High (<20) 11 Malb/Creat Ratio 783.4 MG/GM High (0-20) Urine Creat For Micro Albumin 48.7 mg/dL Urinalysis Complete 02/17/2022 [facility] Appear/Color LIGHT YELLOW 12 SP. [place] 1.015 (1.002-1.0 30) Urine PH 5.5 (5.0-8.0) Urine Albumin 1+ Abnormal (Neg) Urine Glucose 4+ Abnormal (Neg) Urine Ketones NEGATIVE (Neg) Urine Bilirubin NEGATIVE (Neg) Urine Hemoglobin NEGATIVE (Neg) Urine Nitrite NEGATIVE (Neg) Urine Leukocyte NEGATIVE (Neg) Urobilinogen NORMAL mg/dL (Norm) Urine WBCs <1 /HPF (0-5) Urine RBCs NONE SEEN /HPF (0-3) Free T4 02/17/2022 [facility] Free T4 0.88 ng/dL [...] with health care provider. DIAGNOSTIC USE: The [place] Diabetes [employer] (ADA) and the World Health [...] No Show Office Visit Complet ed 08/23/2022 [id number] Glucose Monitori ng From Interstital Tissue Fluid [...] Appt Benja e Curtis Gotti M.D. Created [address] [place] [address] Drive [address] [place] [address] [phone] Curtis Gotti M.D. Closed [address] [place] [address] Drive [address] [place] [address] [phone]
[2024-09-18 09:14] LABS: Glucose, Whole Blood 178 mg/dL (60-115)
== END 2024-09-18 10:06 | disposition home or self-care (01) ==
LOC: HO.ENCR 08:49
PROVIDERS: PCP Internal Medicine; Visit Provider Internal Medicine Endocrinology, Diabetes & Metabolism
DX: E11.9 Type 2 diabetes mellitus without complications (principal); Z79.4 Long term (current) use of insulin
CPT/HCPCS: 99204

== ENCOUNTER → 2024-09-18 08:48 | Outpatient (BNVA) | payer MEDICARE, SELFPAY | PROVIDERS: PCP Internal Medicine; Visit Provider Internal Medicine Endocrinology, Diabetes & Metabolism | DX: E11.9 Type 2 diabetes mellitus without complications (principal); L97.529 Non-pressure chronic ulcer of other part of left foot with unspecified severity | CPT/HCPCS: 82947; 83036; 99202 ==

== ENCOUNTER 2024-10-10 08:45 | Outpatient (RCR) | payer MEDICARE, SELFPAY | END 2024-10-10 16:00 | disposition home or self-care (01) | LOC: HO.WCC 08:45 | PROVIDERS: Visit Provider Surgery | DX: E11.621 Type 2 diabetes mellitus with foot ulcer (principal); L97.811 Non-pressure chronic ulcer of other part of right lower leg limited to breakdown of skin; L97.521 Non-pressure chronic ulcer of other part of left foot limited to breakdown of skin; E11.622 Type 2 diabetes mellitus with other skin ulcer; I87.2 Venous insufficiency (chronic) (peripheral); Z87.891 Personal history of nicotine dependence | CPT/HCPCS: 97597; 99212 ==

== ENCOUNTER 2024-10-16 08:54 | Outpatient (AMB) | payer MEDICARE, SELFPAY ==
--- NOTE | 2024-10-16 09:02 | A.OFFVIS_ITS ---
Vital Signs 10/16/24 09:03 Height 6 ft Weight 213 lb 13.574 oz BMI 29.0 BP 132/70 Blood Pressure Location Rt brachial Position Sitting Pulse 56 Pulse Source Pulse Oximeter Pulse Oximetry (%) 96 Oxygen Delivery Method Room Air Intake Visit Reasons: T2DM Intake Note: Patient presents today for a follow-up on Type 2 Diabetes Mellitus: Last Diabetic eye exam was on: 10/14/2024 Last Podiatry exam was on: Patient does not see a Personal Injury Attorney Most recent HbA1c: 8.4% 09/18/2024 Random Glucose: 256 mg/dL Damascener Required: No Accompanied by: Self / Same As Patient Allergies No Known Allergies (No Known Allergies*) Allergy (Verified 10/16/24 09:04) Medication List - Last Reconciled 10/16/24 by Lacy Fuchs MD aspirin 81 mg PO DAILY atorvastatin (Lipitor) 80 mg PO DAILY blood-glucose sensor (FreeStyle Ezekiel 3 Sensor device) As directed empagliflozin (Jardiance) 10 mg PO DAILY insulin aspart U-100 (Novolog FlexPen U-100 Insulin aspart) subcut losartan 25 mg PO DAILY HPI Comments Details: 69 YO M who is seen in consultation for T2DM in setting of CKD Stage 4 at the request of PCP. Initially diagnosed with T2DM in since age 39 . Was seeing endo at [facility] . Saw Dr Fields one month ago-no changes in med at that time Was initially started on treatment with metformin . Current regimen Mounjaro 5 mg Jardiance 10 mg QD Novolog 15-20 units-bases dosing on low carb/high carb meal. Takes 5-10 minute before meals. He is checking his glucose soon after meals and taking extra novolog if high CGM reviewed-14 day GMI 8.1% TGGT 34%, high 66%. He has had one low in last 7 days, 5 in last 90 days. Treats lows with sugar. Advised to check sugar after to ensure it is rising. Family history of T2DM in father, mother , sister brothers . Has eyes checked yearly-Dr. 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 Has neuropathy, last foot exam 2-3 yrs ago , sees podiatry. Has nephropathy at [facility] , on CLAUDIO/ARB. Has HLD, on statin. Last LDL as measured on 111. Denies CAD.Has CVA Has scheduled diabetic education and nutrition ROS CONSTITUTIONAL: Denies weight loss, fever and chills. HEENT: Denies changes in vision and hearing. RESPIRATORY: Denies SOB and cough. CV: Denies palpitations and CP GI: Denies abdominal pain, nausea, vomiting and diarrhea. : Denies dysuria and urinary frequency. MSK: Denies new myalgia and joint pain. SKIN: Denies rash and pruritus. NEUROLOGICAL: Denies headache PSYCHIATRIC: Denies recent changes in mood. PHYSICAL EXAM: GENERAL: Alert and oriented x 3. NAD EYES: EOMI. Anicteric. HENT: Moist mucous membranes. No scleral icterus. No cervical lymphadenopathy. LUNGS: Clear to auscultation bilaterally. CARDIOVASCULAR: Regular rate and rhythm. No murmur. No JVD. ABDOMEN: Soft, non-tender +bs EXTREMITIES: No edema. Non-tender. SKIN: No rashes or lesions. Warm. NEUROLOGIC: No focal neurological deficits. CN II-XII grossly intact PSYCHIATRIC: Cooperative. Appropriate mood and affect [facility] Medical History Diabetes Surgical History No pertinent past surgical history Family History Mother No problems noted. Father No problems noted. Social History Housing: House Alcohol intake: current Patient Tobacco Use Status: Former Tobacco user e-Cigarette/Vaping Use: Former Use service: No Current occupational status: retired Cognitive needs: No Hearing needs: No Vision needs: Yes (rx glasses) Physical Exam Vital Signs: Last Vital Signs Pulse 48 L 10/16/24 09:03 BP 132/70 10/16/24 09:03 Oxygen Delivery Method Room Air 10/16/24 09:03 BMI result Body Mass Index 29.0 Assessment & Plan Assessment & Plan (1) Diabetes: Code(s): E11.9 - Type 2 diabetes mellitus without complications Category: Medical Qualifiers: Diabetes mellitus type: type 2 Diabetes mellitus assisted insulin use: with compliance professional use Diabetes mellitus complication status: with kidney complications Diabetes mellitus complication detail: with chronic kidney disease Chronic kidney disease stage: stage 4 (GFR 15-29) Qualified Code(s): E11.22 - Type 2 diabetes mellitus with diabetic chronic kidney disease; N18.4 - Chronic kidney disease, stage 4 (severe); Z79.4 - snf (current) use of insulin Plan: 69 year old for diabetic follow up A1C not at goal. Has some lows. Advised NOT to take novolog after meals. If high he can go for a walk. Discussed potentially starting the novolog on a sliding scale or adjustment over time so he is getting less post prandial hyperglycemia but stressed not taking once the meal is over Increase mounjaro. continue jardiance Treat hypoglycemia by rules of 15s. Upcoming diabetic education, nutrition. Return in 2 months or sooner as needed Medications: New tirzepatide (Mounjaro) 7.5 mg (0.5 mL) subcut QWEEK 6 mL 1RF Coding Level of Care Code Est Pt Level 4 (92173) Diagnoses Type 2 diabetes mellitus with stage 4 chronic kidney disease, with long-term current use of insulin E11.22; N18.4; Z79.4 Diabetes mellitus type: type 2 Diabetes mellitus assisted insulin use: with assisted use Diabetes mellitus complication status: with kidney complications Diabetes mellitus complication detail: with chronic kidney disease Chronic kidney disease stage: stage 4 (GFR 15-29)
[2024-10-16 09:03] VITALS: BP 132/70; PULSE 56; O2SAT 96; BMI 29.0
--- OUTSIDE RECORDS SUMMARY | 2024-10-16 09:05 | XMS_ITS | Clinical Summary ---
Author Organization [facility] Address [address] [address] Phone Care Team Providers Care Heat Treat Furnace Operator Name Role Phone Sanford Urrutia MD Primary Care Provider [phone] Allergies Active Allergy Reactions Criticality Noted Date [...] Chronic kidney disease stage 3 08/13/2020 02/06/2023 Encounters Date Type Department Care Team Description 09/25/2024 Orders Only [facility] [address] [phone] Nir Mendoza MD Stage 3b chronic kidney disease (HCC); Metabolic acidosis, normal anion gap (NAG); Hypertensive chronic kidney disease; Type 2 diabetes mellitus with diabetic chronic kidney disease (HCC) from Last 3 Months Immunizations Immunization Administration Dates Next Due Pneumococcal [...] Care Team (Late st Contact Info) Description 11/18/2024 2:45 PM EDT Office Visit [facility] [address] [phone] Nir Mendoza MD [address] [phone] Health Maintenance Due Date Last Done Comments [...] this topic Insurance [facility] Member Subscriber Plan / Payer (Ef fective 2018-Present) Name:Jameson Gonzales Relation to Subscriber:Self Name:Jameson Gonzales Payer ID:[id number] (NAIC) Type:Not on file Address: [place] [phone] [facility] Care Teams Heat Treat Furnace Operator Relationship Specialty Start Date End Date Sanford Urrutia MD [address] [place] [address] [address] [facility] PCP - General 03/23/20
--- OUTSIDE RECORDS SUMMARY | 2024-10-16 09:05 | XMS_ITS | Continuity of Care Document ---
Author Organization [facility] [employer] [employer] [address] [facility] [address] [place] [address] Phone [phone] Care Team Providers Care Recruitment Manager Name Role Phone Sanford Urrutia M.D. Care Team Information Receiv er [phone] Problems Active Problems Provider Date Type 2 [...] 3units Curtis Gotti M.D. 12/21/2023 Freestyle Ezekiel 3/[place]/Glucose Monitoring Klfvak8Ishjlu Device use with sensors to check blood sugar dx:e11.9 1units Curtis Gotti M.D. 12/20/2023 Prxxstry7pi/0.5ML Solution Pen-Inject 1 injection every week as directed 6ml Curtis Gotti M.D. 11/21/2023 Freestyle Ezekiel 3/Sensor/Glucose Monitoring Ykyvgy5Wfdbyr Misc as directed 3unmike Gotti M.D. 07/18/2023 Gkkbiybli33gb Tablets 1 tablet by mouth every day 90tabs Curtis Gotti M.D. 07/18/2023 Novolog Ofjugpx008Fqty/ML Solution Pen-Inject Inject 10-15 Units Subcutaneously 3 Times A Day 60units E11.9 Curtis Gotti M.D. 08/09/2022 Lant Fwqnrdre197Vpre/ML Solution Pen-Inject Inject 54 Units In Am 60ml E11.8 Curtis Gotti M.D. 02/07/2022 Wecdqkmckg78un Tablets Take 1/2 Tablet Daily 90tabs Curtis Gotti M.D. Atorvastatin Wpsqako46yw Tablets 1 by mouth every day 30tabs Sanford Urrutia M.D. Losartan Afhewimsh00ss Tablets 1 by mouth every day 90tabs [...] Balta 30 mg/dL 5-40 LDL Chol Calc ([facility]) 58 mg/dL 0-99 LDL Calc Comment: TNP Urinalysis, Complete 11/17/2023 [facility] Specific [place] 1.016 1.005-1.03 0 pH 5.5 5.0-7.5 Urine-Color [...] 1.4-7.0 Lymphs (Absolute) 1.3 x10E3/uL 0.7-3.1 Monocytes(Absol [place]) 0.3 x10E3/uL 0.1-0.9 Eos (Absolute) 0.1 x10E3/uL [...] 7.7% TSH With Reflex To FT4 08/24/2022 [facility] TSH With Reflex To FT4 3.54 uIU/mL (0.4-4.2) Urinary Microalbumin 08/24/2022 [facility] Micro-Albumin 305.0 mg/L High (<20) 6 Malb/Creat Ratio 509.3 MG/GM High (0-20) Urine Creat For Micro Albumin 59.9 mg/dL Complete Abc With Diff 08/24/2022 [facility] WBC 4.9 K/MM3 (4.0-11.0) [...] K/MM3 (1.3-7.0) Lymph # 1.3 K/MM3 (0.8-3.1) [place]# 0.4 K/MM3 (0.4-1.3) Eo # 0.1 K/MM3 (0.0-0.4) Baso # 0.0 K/MM3 (0.0-0.1) Abs. Imm Gran 0.0 K/MM3 Neut 62.6 % (44-76) Lymph 26.7 % (15-43) Monocyte 7.2 % (4.5-10.5) Eo 2.7 % (0-6) Baso 0.4 % (0-2) Imm Gran 0.4 % Urinalysis Complete 08/24/2022 [facility] Appear/Color LIGHT YELLOW 7 SP. [place]ck[place] 1.019 (1.002-1.0 30) Urine PH 6.0 (5.0-8.0) Urine Albumin 1+ Abnormal (Neg) Urine Glucose 4+ Abnormal (Neg) Urine Ketones NEGATIVE (Neg) Urine Bilirubin NEGATIVE (Neg) Urine Hemoglobin NEGATIVE (Neg) Urine Nitrite NEGATIVE (Neg) Urine Leukocyte NEGATIVE (Neg) Urobilinogen NORMAL mg/dL (Norm) Urine WBCs NONE SEEN /HPF (0-5) Urine RBCs <1 /HPF (0-3) Lipid Panel 08/24/2022 [facility] Cholesterol, Total 175 mg/dL (<200) Triglyceride 213 mg/dL High (<150) HDL Chol 41 mg/dL (>39) LDL Cholesterol, Calculated 91 mg/dL (0-130) Non HDL Cholesterol (Calc) 134 mg/dL (<160) Comprehensive Metabolic Panl 08/24/2022 [facility] Glucose 184 mg/dL High [...] Hemoglobin A1c 8.2% Comprehensive Metabolic Panl 02/17/2022 [facility] Glucose 144 mg/dL High [...] 36 ML/MIN/1.7 3M2 9 Lipid Panel 02/17/2022 [facility] Cholesterol, Total 142 mg/dL (<200) Triglyceride 106 mg/dL (<150) HDL Chol 50 mg/dL (>39) LDL Cholesterol, Calculated 71 mg/dL (0-130) Non HDL Cholesterol (Calc) 92 mg/dL (<160) Hemoglobin A1c 02/17/2022 [facility] Hemoglobin A1c 8.5 % High (4.0-5.6) 10 Complete Abc With Diff 02/17/2022 [facility] WBC 6.1 K/MM3 (4.0-11.0) [...] K/MM3 (1.3-7.0) Lymph # 1.4 K/MM3 (0.8-3.1) [place]# 0.4 K/MM3 (0.4-1.3) Eo # 0.2 K/MM3 (0.0-0.4) Baso # 0.0 K/MM3 (0.0-0.1) Abs. Imm Gran 0.0 K/MM3 Neut 66.3 % (44-76) Lymph 22.6 % (15-43) Monocyte 7.0 % (4.5-10.5) Eo 3.3 % (0-6) Baso 0.5 % (0-2) Imm Gran 0.3 % TSH With Reflex To FT4 02/17/2022 [facility] TSH With Reflex To FT4 4.62 uIU/mL High (0.4-4.2) Urinary Microalbumin 02/17/2022 [facility] Micro-Albumin 381.5 mg/L High (<20) 11 Malb/Creat Ratio 783.4 MG/GM High (0-20) Urine Creat For Micro Albumin 48.7 mg/dL Urinalysis Complete 02/17/2022 [facility] Appear/Color LIGHT YELLOW 12 SP. [place]ck[place] 1.015 (1.002-1.0 30) Urine PH 5.5 (5.0-8.0) Urine Albumin 1+ Abnormal (Neg) Urine Glucose 4+ Abnormal (Neg) Urine Ketones NEGATIVE (Neg) Urine Bilirubin NEGATIVE (Neg) Urine Hemoglobin NEGATIVE (Neg) Urine Nitrite NEGATIVE (Neg) Urine Leukocyte NEGATIVE (Neg) Urobilinogen NORMAL mg/dL (Norm) Urine WBCs <1 /HPF (0-5) Urine RBCs NONE SEEN /HPF (0-3) Free T4 02/17/2022 [facility] Free T4 0.88 ng/dL [...] with health care provider. DIAGNOSTIC USE: The [place] Diabetes Association (ADA) and the World Health [...] No Show Office Visit Complet ed 08/23/2022 93257 Glucose Monitori ng From Interstital Tissue Fluid [...] Appt Benja e Curtis Gotti M.D. Created [address] [place] [address] Drive [address] [place] [address] [phone] Curtis Gotti M.D. Closed [address] [place] [address] Drive [address] [place] [address] [phone]
[2024-10-16 09:18] LABS: Glucose, Whole Blood 254 mg/dL (60-115)
== END 2024-10-16 09:31 | disposition home or self-care (01) ==
LOC: HO.ENCR 08:55
PROVIDERS: PCP Internal Medicine; Visit Provider Internal Medicine
DX: E11.22 Type 2 diabetes mellitus with diabetic chronic kidney disease (principal); N18.4 Chronic kidney disease, stage 4 (severe); Z79.4 Long term (current) use of insulin

== ENCOUNTER → 2024-10-16 08:54 | Outpatient (BNVA) | payer MEDICARE, SELFPAY | PROVIDERS: PCP Internal Medicine; Visit Provider Internal Medicine | DX: E11.22 Type 2 diabetes mellitus with diabetic chronic kidney disease (principal); N18.4 Chronic kidney disease, stage 4 (severe); Z79.4 Long term (current) use of insulin; Z83.3 Family history of diabetes mellitus | CPT/HCPCS: 82947; 99212 ==

== ENCOUNTER 2024-11-04 09:48 | Outpatient (AMB) | payer MEDICARE, SELFPAY ==
[2024-11-04 09:59] VITALS: BMI 28.6
--- NOTE | 2024-11-04 09:59 | A.OFFVIS_ITS ---
VS Expanded 11/04/24 09:59 11/04/24 20:56 Height 6 ft 6 ft Weight 210 lb 15.718 oz 211 lb BMI 28.6 28.6 Intake Visit Reasons: T2DM Allergies No Known Allergies (No Known Allergies*) Allergy (Verified 10/16/24 09:04) Nutrition Presentation Details: Pt presents for initial MNT for T2DM Pt has questions regarding meal combinations for better gluc control. B: 2 boiled eggs, slice of cheese, muro, coffee with light cream L: chicken zenaida /cream coffee or water or burger or pasta with lemon d: carbon plant grinder /beers snacks: mixed nuts (100 brendon) or apple physical activity: ADL, contemplating starting physical activity etoh/smoking--- food frequency fruits: 2/d ve/wk dairy 2-3/d fish 0-1/wk beverages:water/diet beverages/coffee 2c/d EFG-Cahqqrm-Tz.Jeor Equation Height: 6 ft Weight: 211 lb Resting Metabolic Rate: 1759.72 Calculated Activity Level: Sedentary Calories Needed to Maintain Weight: 2111.66 Diagnosis Nutrition problem #1: altered nutrition labs As related to (etiology) #1: diagnosis As evidenced by (sign/symptom) #1: abnormal lab values [facility] Medical History Diabetes Surgical History No pertinent past surgical history Family History Mother No problems noted. Father No problems noted. Social History Housing: House Alcohol intake: current Patient Tobacco Use Status: Former Tobacco user e-Cigarette/Vaping Use: Former Use service: No Current occupational status: retired Cognitive needs: No Hearing needs: No Vision needs: Yes (rx glasses) Assessment & Plan Assessment & Plan (1) Diabetes: Code(s): E11.9 - Type 2 diabetes mellitus without complications Category: Medical Qualifiers: Chronic kidney disease stage: stage 4 (GFR 15-29) Diabetes mellitus complication detail: with chronic kidney disease Diabetes mellitus complication status: with kidney complications Diabetes mellitus bed bug exterminator insulin use: with fpc use Diabetes mellitus type: type 2 Qualified Code(s): E11.22 - Type 2 diabetes mellitus with diabetic chronic kidney disease; N18.4 - Chronic kidney disease, stage 4 (severe); Z79.4 - bed bug exterminator (current) use of insulin Plan: Wt: 96 Kg (11/04 ) Est kcal needs as per MSJ: 2100 (40% carb, 30% protein/fat) Est fluid needs as per 25-30 ml/d: 2900 Est prot per day as per 1 g/kg bw: Recommend fiber intake : 8-10 g per day and gradually increase to 25-28 g per day for women and 35-38 g for men or as tolerated Recommend sodium intake per day : less than 1500 mg less than 2000 mg Educated patient on: ( R = reviewed V = verbalizes understanding N/R = needs review N/A = not applicable * Food sources of carbohydrate, adequate serving sizes and its role in various health conditions: R V * Differences between complex carbohydrates a simple carbohydrates, role of fiber in diet: R * Lean protein sources of foods: R V * Differences between types of fats and role in diet (mono on saturated fat fatty acids, saturated fatty acids, trans fats): R V N/R * Food sources of sodium in salt and healthy modifications for heart health in kidney health: R V R/V * Vitamins and minerals: R V N/R * Healthy plate method concept: R V N/R * Physical activity: Benefits a precaution: R * Hypoglycemia protocol (rule of 15): R V N/R * Dietary prevention of Hyperglycemia: R Patient Instructions: Include non starchy vegetables in 2 of your meals, increasing on fiber intake Increase water as you increase vegetable/fiber intake ot prevent constipation Maintain physically active as able and keep hydrated Coding Level of Care Code Nutr Indiv Intake (60210) Diagnoses Type 2 diabetes mellitus with stage 4 chronic kidney disease, with long-term current use of insulin E11.22; N18.4; Z79.4 Chronic kidney disease stage: stage 4 (GFR 15-29) Diabetes mellitus complication detail: with chronic kidney disease Diabetes mellitus complication status: with kidney complications Diabetes mellitus bed bug exterminator insulin use: with fpc use Diabetes mellitus type: type 2 Time Spent (min) 30
--- OUTSIDE RECORDS SUMMARY | 2024-11-04 10:42 | XMS_ITS | Continuity of Care Document ---
Author Organization [facility] [address] [facility] [address] [place] [address] Phone [phone] Care Team Providers Care Cue Worker Name Role Phone Sanford Urrutia M.D. Care Team Information Receiv er [phone] Problems Active Problems Provider Date Type 2 [...] 3units Curtis Gotti M.D. 12/21/2023 Freestyle Ezekiel 3/[place]/Glucose Monitoring Ozprej1Dxcezm Device use with sensors to check blood sugar dx:e11.9 1units Curtis Gotti M.D. 12/20/2023 Sxbelwdk4gr/0.5ML Solution Pen-Inject 1 injection every week as directed 6ml Curtis Gotti M.D. 11/21/2023 Freestyle Ezekiel 3/Sensor/Glucose Monitoring Nthiww1Unzspk Misc as directed 3unmike Gotti M.D. 07/18/2023 Fbfxwnvza44aw Tablets 1 tablet by mouth every day 90tabs Curtis Gotti M.D. 07/18/2023 Novolog Rdwmxyr575Ujvg/ML Solution Pen-Inject Inject 10-15 Units Subcutaneously 3 Times A Day 60units E11.9 Curtis Gotti M.D. 08/09/2022 Lant Dhbujmle479Klya/ML Solution Pen-Inject Inject 54 Units In Am 60ml E11.8 Curtis Gotti M.D. 02/07/2022 Forvzmogyb18az Tablets Take 1/2 Tablet Daily 90tabs Curtis Gotti M.D. Atorvastatin Gqbnmls29za Tablets 1 by mouth every day 30tabs Sanford Urrutia M.D. Losartan Hurcxiybe69pf Tablets 1 by mouth every day 90tabs [...] Balta 30 mg/dL 5-40 LDL Chol Calc ([facility]) 58 mg/dL 0-99 LDL Calc Comment: TNP Urinalysis, Complete 11/17/2023 [facility] Specific [place] 1.016 1.005-1.03 0 pH 5.5 5.0-7.5 Urine-Color [...] 1.4-7.0 Lymphs (Absolute) 1.3 x10E3/uL 0.7-3.1 Monocytes(Absol [place]) 0.3 x10E3/uL 0.1-0.9 Eos (Absolute) 0.1 x10E3/uL [...] 7.7% TSH With Reflex To FT4 08/24/2022 [facility] TSH With Reflex To FT4 3.54 uIU/mL (0.4-4.2) Urinary Microalbumin 08/24/2022 [facility] Micro-Albumin 305.0 mg/L High (<20) 6 Malb/Creat Ratio 509.3 MG/GM High (0-20) Urine Creat For Micro Albumin 59.9 mg/dL Complete Abc With Diff 08/24/2022 [facility] WBC 4.9 K/MM3 (4.0-11.0) [...] K/MM3 (1.3-7.0) Lymph # 1.3 K/MM3 (0.8-3.1) [place]# 0.4 K/MM3 (0.4-1.3) Eo # 0.1 K/MM3 (0.0-0.4) Baso # 0.0 K/MM3 (0.0-0.1) Abs. Imm Gran 0.0 K/MM3 Neut 62.6 % (44-76) Lymph 26.7 % (15-43) Monocyte 7.2 % (4.5-10.5) Eo 2.7 % (0-6) Baso 0.4 % (0-2) Imm Gran 0.4 % Urinalysis Complete 08/24/2022 [facility] Appear/Color LIGHT YELLOW 7 SP. [place] 1.019 (1.002-1.0 30) Urine PH 6.0 (5.0-8.0) Urine Albumin 1+ Abnormal (Neg) Urine Glucose 4+ Abnormal (Neg) Urine Ketones NEGATIVE (Neg) Urine Bilirubin NEGATIVE (Neg) Urine Hemoglobin NEGATIVE (Neg) Urine Nitrite NEGATIVE (Neg) Urine Leukocyte NEGATIVE (Neg) Urobilinogen NORMAL mg/dL (Norm) Urine WBCs NONE SEEN /HPF (0-5) Urine RBCs <1 /HPF (0-3) Lipid Panel 08/24/2022 [facility] Cholesterol, Total 175 mg/dL (<200) Triglyceride 213 mg/dL High (<150) HDL Chol 41 mg/dL (>39) LDL Cholesterol, Calculated 91 mg/dL (0-130) Non HDL Cholesterol (Calc) 134 mg/dL (<160) Comprehensive Metabolic Panl 08/24/2022 [facility] Glucose 184 mg/dL High [...] Hemoglobin A1c 8.2% Comprehensive Metabolic Panl 02/17/2022 [facility] Glucose 144 mg/dL High [...] 36 ML/MIN/1.7 3M2 9 Lipid Panel 02/17/2022 [facility] Cholesterol, Total 142 mg/dL (<200) Triglyceride 106 mg/dL (<150) HDL Chol 50 mg/dL (>39) LDL Cholesterol, Calculated 71 mg/dL (0-130) Non HDL Cholesterol (Calc) 92 mg/dL (<160) Hemoglobin A1c 02/17/2022 [facility] Hemoglobin A1c 8.5 % High (4.0-5.6) 10 Complete Abc With Diff 02/17/2022 [facility] WBC 6.1 K/MM3 (4.0-11.0) [...] K/MM3 (1.3-7.0) Lymph # 1.4 K/MM3 (0.8-3.1) [place]# 0.4 K/MM3 (0.4-1.3) Eo # 0.2 K/MM3 (0.0-0.4) Baso # 0.0 K/MM3 (0.0-0.1) Abs. Imm Gran 0.0 K/MM3 Neut 66.3 % (44-76) Lymph 22.6 % (15-43) Monocyte 7.0 % (4.5-10.5) Eo 3.3 % (0-6) Baso 0.5 % (0-2) Imm Gran 0.3 % TSH With Reflex To FT4 02/17/2022 [facility] TSH With Reflex To FT4 4.62 uIU/mL High (0.4-4.2) Urinary Microalbumin 02/17/2022 [facility] Micro-Albumin 381.5 mg/L High (<20) 11 Malb/Creat Ratio 783.4 MG/GM High (0-20) Urine Creat For Micro Albumin 48.7 mg/dL Urinalysis Complete 02/17/2022 [facility] Appear/Color LIGHT YELLOW 12 SP. [place] 1.015 (1.002-1.0 30) Urine PH 5.5 (5.0-8.0) Urine Albumin 1+ Abnormal (Neg) Urine Glucose 4+ Abnormal (Neg) Urine Ketones NEGATIVE (Neg) Urine Bilirubin NEGATIVE (Neg) Urine Hemoglobin NEGATIVE (Neg) Urine Nitrite NEGATIVE (Neg) Urine Leukocyte NEGATIVE (Neg) Urobilinogen NORMAL mg/dL (Norm) Urine WBCs <1 /HPF (0-5) Urine RBCs NONE SEEN /HPF (0-3) Free T4 02/17/2022 [facility] Free T4 0.88 ng/dL [...] with health care provider. DIAGNOSTIC USE: The [place] Diabetes Association (ADA) and the World Health [...] No Show Office Visit Complet ed 08/23/2022 [id number] Glucose Monitori ng From Interstital Tissue Fluid [...] Appt Benja e Curtis Gotti M.D. Created [address] [place] [address] Drive [address] [place] [address] [phone] Curtis Gotti M.D. Closed [address] [place] [address] Drive [address] [place] [address] [phone]
--- OUTSIDE RECORDS SUMMARY | 2024-11-04 10:42 | XMS_ITS | Clinical Summary ---
Author Organization [facility] Address [address] [address] Phone Care Team Providers Care Printing Supervisor Name Role Phone Sanford Urrutia MD Primary Care Provider [phone] Allergies Active Allergy Reactions Criticality Noted Date [...] day Active Continuous Blood Gluc Sensor (FreeStyle Ezekeil 2 Sensor) misc Activ e sodium bicarbonate [...] Orders Only [facility] [address] [phone] Nir Mendoza MD Stage 3b chronic kidney [...] Office Visit [facility] [address] [phone] Nir Mendoza MD [address] [phone] Health Maintenance Due Date Last Done Comments [...] patient's age to complete this topic Insurance [facility] Member Subscriber Plan / Payer (Ef fective 2018-Present) Name:Jameson Gonzales Relation to Subscriber:Self Name:Jameson Gonzales Payer ID:[id number] (NAIC) Type:Not on file Address: [place] [phone] [facility] Care Teams Printing Supervisor Relationship Specialty Start Date End Date Sanford Urrutia MD [address] [place] [address] [address] [facility] PCP - General 03/23/20
[2024-11-12 14:15] VITALS: BMI 28.6
== END 2024-11-04 10:41 | disposition home or self-care (01) ==
LOC: HO.ENCR 09:49
PROVIDERS: PCP Internal Medicine; Visit Provider Dietitian, Registered
DX: E11.22 Type 2 diabetes mellitus with diabetic chronic kidney disease (principal); N18.4 Chronic kidney disease, stage 4 (severe); Z79.4 Long term (current) use of insulin

== ENCOUNTER → 2024-11-04 09:48 | Outpatient (BNVA) | payer MEDICARE, SELFPAY | PROVIDERS: PCP Internal Medicine; Visit Provider Dietitian, Registered | DX: E11.22 Type 2 diabetes mellitus with diabetic chronic kidney disease (principal); N18.4 Chronic kidney disease, stage 4 (severe); Z79.4 Long term (current) use of insulin | CPT/HCPCS: 97802 ==

== ENCOUNTER 2024-11-05 13:44 | Outpatient (AMB) | payer MEDICARE, SELFPAY ==
--- NOTE | 2024-11-05 14:38 | A.OFFVIS_ITS ---
Intake Intake Visit Reasons: T2DM Autism Specialist Required: No Accompanied by: Self / Same As Patient Allergies No Known Allergies (No Known Allergies*) Allergy (Verified 11/21/24 13:36) HPI Comprehensive Diabetes Asmnt General Details [facility] Medical History (Updated 11/21/24 @ 14:00 by Damien Marlow MD) Hyperlipidemia Hypertension Diabetes Surgical History No pertinent past surgical history Family History Mother No problems noted. Father No problems noted. Social History Housing: House Alcohol intake: current Patient Tobacco Use Status: Former Tobacco user e-Cigarette/Vaping Use: Former Use service: No Current occupational status: retired Cognitive needs: No Hearing needs: No Vision needs: Yes (rx glasses) Assessment & Plan Assessment & Plan (1) Diabetes: Comment: - Continue current regimen: Lispro 15 units with meals, Mounjaro 7.5 mg weekly - Refill Jardiance; monitor blood sugar levels closely - Follow up with the music copyist for A1c management Code(s): E11.9 - Type 2 diabetes mellitus without complications Qualifiers: Chronic kidney disease stage: stage 4 (GFR 15-29) Diabetes mellitus complication detail: with chronic kidney disease Diabetes mellitus complication status: with kidney complications Diabetes mellitus officer captain insulin use: with half-way use Diabetes mellitus type: type 2 Qualified Code(s): E11.22 - Type 2 diabetes mellitus with diabetic chronic kidney disease; N18.4 - Chronic kidney disease, stage 4 (severe); Z79.4 - MCFP (current) use of insulin Plan Patient in today with Ezekiel 3+ in left upper arm. Phone is current , did not charge prior to visit and unable to review CGM data, patient is not sharing with our practice. Did provide patient instructions on how to share his CGM data with us but if he is unable to complete this successfully will call back the office to schedule a visit sooner to complete. Patient reporting having been diagnosed with diabetes at 39 years old. He was previously a patient here but had been lost to follow up when the provider left. Patient is reporting multiple family members with diabetes. Patient reporting regularly exercising by walking/jogging. Patient does not have a glucometer at this time to check his blood sugars with high, lows or sensor fails. Diabetes self-management education and support participation record Assessment/scale: 1= needs instructed? 2= needs review? 3= comprehend keep point? 4= demonstrates understanding/ competent? NC= Not Covered Topics Learning Objective: Initial visit Initial or post srvc Initial or post srvc Initial or post srvc Initial or post srvc Initial or post srvc Post srvc Comments Pre Edu-assessment/plan Outcome or reassess Outcome or reassess Outcome or reassess Outcome or reassess Outcome or reassess Outcome or reassess Diabetes pathophysiology 1 Healthy eating 1 Being active 2 Taking medication 1 Monitoring glucose 1 Acute complication Chronic complicated Lifestyle and healthy coping Diabetes distress in support ?Diabetes pathophysiology: ?Defined diabetes med identify own type of diabetes; list 3 options for treating diabetes Healthy eating: ?Described effect of type, amount and ?timing of food on blood glucose; list 3 methods for planning meal Being active: ?State effect of exercise on blood glucose level Taking medication: ?State effect of diabetes medications on diabetes; name diabetes medications taking, action and side effects Monitoring glucose: ?Identify recommended blood glucose targets and personal target Acute complication: ?List symptoms and treatment of hyper and hypoglycemia, DKA, sick day guidelines and guidelines for severe weather or situations of crisis and diabetes supply manage Chronic complication: ?To find the relationship of blood glucose levels to long- term complications of diabetes in screening and preventative measures Lifestyle and healthy coping: ?Described lifestyle and healthy coping strategies to rule out diabetes self-management Diabetes to stress and support: ?Recognize Diabetes to stress and be able to identified support options Learning objectives: The patient was provided with verbal and written education on the following topics as outlined below. The patient met all learning objectives and was able to verbalize understanding and provide teach back of education topics discussed . The patient was provided with the opportunity to ask questions and all questions were answered. Patient Assessment Assess patient education level/literacy/barriers: Patient is currently enrolled in college courses and will complete in spring of next year. Patient has previously not seen a certified breastfeeding educator or paper hanger, he was seen yesterday by Jaylyn GUARDADO. Patient questions/concerns: Patients A1C on 09/18/2024 and was 8.4%. Patient will be due for next A1C in December and is seeing Dr. Fuchs on 12/25/2024. Patient is currently on Mounjaro 7.5mg weekly, Jardiance 10mg daily, and Novolog 15-20 units before meals, TID. Patient reporting needing to have new script for Jardiance sent to [facility] on file, was previously being sent by outside provider. Patient is agreeable to having medications managed by endocrinology provider. Patient reporting most recent meals and breakfast today and dinner previous night did not contain carbohydrates. Patient informed of the importance of having carbohydrates as this fuels our body and gives us energy. I advised him if he has a meal that does not contain carbohydrates then he should not inject himself with a his meal time insulin. Patient is agreeable to plan. What is Diabetes? Pathophysiology How the body produces and uses insulin Identify type of DM Risk factors Signs of Diabetes Brief overview of Diabetes Management Monitoring blood sugar Following a meal plan Regular exercise Maintaining a healthy weight Taking medication as needed Members of the care team (PCP, RN, MA, RD, CDE, music copyist) Blood glucose monitoring When/how often to test Target blood sugar ranges Signs and symptoms of low blood sugar (happen quickly) Each person's reaction to low blood sugar is different. Learn your own signs and symptoms of when your blood sugar is low. Taking time to write these symptoms down may help you learn your own symptoms of when your blood sugar is low. From milder, more common indicators to most severe, signs and symptoms of low blood sugar include: Feeling shaky Being nervous or anxious Sweating, chills and clamminess Irritability or impatience Confusion Fast heartbeat Feeling lightheaded or dizzy Hunger Nausea Color draining from the skin (pallor) Feeling Sleepy Feeling weak or having no energy Blurred/impaired vision Tingling or numbness in the lips, tongue, or cheeks Headaches Coordination problems, clumsiness Rule of 15 Treatment for Hypoglycemia (Low blood sugar) If your blood glucose is low (70 and below)*, follow the steps below to treat: Eat or drink something from the list below equal to 15 grams of carbohydrate (carb). Rest for 15 minutes Re-check your blood glucose. If it is still low, (below 70), repeat step 1 above.?? If your next meal is more than an hour away, you will need to eat one carbohydrate choice as a snack to keep your blood glucose from going low again.? If you can't figure out why you have low blood glucose, call your healthcare provider, as your medicine may need to be adjusted.? Always carry something with you to treat an insulin reaction. Use food from the list below. ? Foods equal to One Carbohydrate Choice (15 grams of carbohydrate): 3 Glucose? tablets or 4 Dextrose tablets 4 ounces of fruit juice 5-6 ounces (about 1/2 can) of regular soda such as Coke or Pepsi?? 7-8 gummy or regular Life Savers?? 1 Tbsp. of sugar or jelly NOTE: If your blood sugar is less than 50, double the portion above for a total of 30 gm.? Carbohydrate. Introduction to Nutrition Importance of healthy diet in managing DM Diet is personalized to individual preference Review patient?s regular diet/food preferences Who prepares meals/does food shopping/ Dining out?/ Barriers? How diet effects glucose Eating 3 balanced meals a day with small, healthy snacks between meals Review food groups Carbohydrates: What is a carbohydrate/Which food/food groups are considered carbohydrates Effect of carbohydrates on blood glucose Portion sizes Reading food labels Basic carb counting (if applicable per nursing assessment) Plate method Recommendations: Follow plate method, consistent carbs and read nutritional labels. Please do not inject meal time insulin if you are not eating carbohydrates. Smart Goal: Identify the carbohydrates in your meals. Patient Instructions: Connect [facility] to [facility] [place] when your phone turns back on. If not able to please call so that we can schedule you to come back in to download CGM data. Please follow up in 2 months with CDE after next A1C. Please call us sooner if experiencing frequent low blood sugars. Please do not inject meal time insulin if you are not eating carbohydrates. Coding Level of Care Code Est Pt Level 1 (18545) Diagnoses Type 2 diabetes mellitus with stage 4 chronic kidney disease, with long-term current use of insulin E11.22; N18.4; Z79.4 Chronic kidney disease stage: stage 4 (GFR 15-29) Diabetes mellitus complication detail: with chronic kidney disease Diabetes mellitus complication status: with kidney complications Diabetes mellitus half-way insulin use: with officer captain use Diabetes mellitus type: type 2
--- OUTSIDE RECORDS SUMMARY | 2024-11-05 14:41 | XMS_ITS | Clinical Summary ---
Author Organization [facility] Address [address] [address] Phone Care Team Providers Care Manager Document Name Role Phone Sanford Urrutia MD Primary Care Provider [phone] Allergies Active Allergy Reactions Criticality Noted Date [...] [facility] [address] [phone] Nir Mendoza MD Stage 3b chronic kidney [...] Office Visit [facility] [address] [phone] Nir Mendoza MD [address] [phone] Health Maintenance Due Date Last Done Comments [...] patient's age to complete this topic Insurance [facility] Member Subscriber Plan / Payer (Ef fective 2018-Present) Name:Jameson Gonzales Relation to Subscriber:Self Name:Jameson Gonzales Payer ID:[id number] (NAIC) Type:Not on file Address: [place] [phone] [facility] Care Teams Manager Document Relationship Specialty Start Date End Date Sanford Urrutia MD [address] [place] [address] [id number] [facility] P[facility] - General 03/23/20
--- OUTSIDE RECORDS SUMMARY | 2024-11-05 14:41 | XMS_ITS | Continuity of Care Document ---
Author Organization [facility] [address] [place] [address] Phone [phone] Care Team Providers Care Lathe Sander Name Role Phone Sanford Urrutia M.D. Care Team Information Receiv er [phone] Problems Active Problems Provider Date Type 2 [...] 3units Curtis Gotti M.D. 12/21/2023 Freestyle Ezekiel 3/[place]/Glucose Monitoring Mjdxkz2Lpnydu Device use with sensors to check blood sugar dx:e11.9 1units Curtis Gotti M.D. 12/20/2023 Lyaifcku9dg/0.5ML Solution Pen-Inject 1 injection every week as directed 6ml uCrtis Gotti M.D. 11/21/2023 Freestyle Ezekiel 3/Sensor/Glucose Monitoring Tsfklk3Fndkkc Misc as directed 3unmike Gotti M.D. 07/18/2023 Ncrvfcwdz64rs Tablets 1 tablet by mouth every day 90tabs Curtis Gotti M.D. 07/18/2023 Novolog Iypqvay231Bzku/ML Solution Pen-Inject Inject 10-15 Units Subcutaneously 3 Times A Day 60units E11.9 Curtis Gotti M.D. 08/09/2022 Lant Fuonpmwl744Uqje/ML Solution Pen-Inject Inject 54 Units In Am 60ml E11.8 Curtis Gotti M.D. 02/07/2022 Fymnmbedxt71an Tablets Take 1/2 Tablet Daily 90tabs Curtis Gotti M.D. Atorvastatin Erwelpt52ew Tablets 1 by mouth every day 30tabs Sanford Urrutia M.D. Losartan Xsygghufr02nn Tablets 1 by mouth every day 90tabs [...] Balta 30 mg/dL 5-40 LDL Chol Calc ([facility]) 58 mg/dL 0-99 LDL Calc Comment: TNP Urinalysis, Complete 11/17/2023 [facility] Specific [place] 1.016 1.005-1.03 0 pH 5.5 5.0-7.5 Urine-Color [...] 1.4-7.0 Lymphs (Absolute) 1.3 x10E3/uL 0.7-3.1 Monocytes(Absol kaw) 0.3 x10E3/uL 0.1-0.9 Eos (Absolute) 0.1 x10E3/uL [...] 7.7% TSH With Reflex To FT4 08/24/[address] [facility] TSH With Reflex To FT4 3.54 uIU/mL (0.4-4.2) Urinary Microalbumin 08/24/[address] [facility] Micro-Albumin 305.0 mg/L High (<20) 6 Malb/Creat Ratio 509.3 MG/GM High (0-20) Urine Creat For Micro Albumin 59.9 mg/dL Complete Abc With Diff 08/24/[address] [facility] WBC 4.9 K/MM3 (4.0-11.0) [...] K/MM3 (1.3-7.0) Lymph # 1.3 K/MM3 (0.8-3.1) [place]# 0.4 K/MM3 (0.4-1.3) Eo # 0.1 K/MM3 (0.0-0.4) Baso # 0.0 K/MM3 (0.0-0.1) Abs. Imm Gran 0.0 K/MM3 Neut 62.6 % (44-76) Lymph 26.7 % (15-43) Monocyte 7.2 % (4.5-10.5) Eo 2.7 % (0-6) Baso 0.4 % (0-2) Imm Gran 0.4 % Urinalysis Complete 08/24/[address] [facility] Appear/Color LIGHT YELLOW 7 SP. [place] 1.019 (1.002-1.0 30) Urine PH 6.0 (5.0-8.0) Urine Albumin 1+ Abnormal (Neg) Urine Glucose 4+ Abnormal (Neg) Urine Ketones NEGATIVE (Neg) Urine Bilirubin NEGATIVE (Neg) Urine Hemoglobin NEGATIVE (Neg) Urine Nitrite NEGATIVE (Neg) Urine Leukocyte NEGATIVE (Neg) Urobilinogen NORMAL mg/dL (Norm) Urine WBCs NONE SEEN /HPF (0-5) Urine RBCs <1 /HPF (0-3) Lipid Panel 08/24/[address] [facility] Cholesterol, Total 175 mg/dL (<200) Triglyceride 213 mg/dL High (<150) HDL Chol 41 mg/dL (>39) LDL Cholesterol, Calculated 91 mg/dL (0-130) Non HDL Cholesterol (Calc) 134 mg/dL (<160) Comprehensive Metabolic Panl 08/24/[address] [facility] Glucose 184 mg/dL High [...] Hemoglobin A1c 8.2% Comprehensive Metabolic Panl 02/17/[address] [facility] Glucose 144 mg/dL High [...] 36 ML/MIN/1.7 3M2 9 Lipid Panel 02/17/[address] [facility] Cholesterol, Total 142 mg/dL (<200) Triglyceride 106 mg/dL (<150) HDL Chol 50 mg/dL (>39) LDL Cholesterol, Calculated 71 mg/dL (0-130) Non HDL Cholesterol (Calc) 92 mg/dL (<160) Hemoglobin A1c 02/17/[address] [facility] Hemoglobin A1c 8.5 % High (4.0-5.6) 10 Complete Abc With Diff 02/17/[address] [facility] WBC 6.1 K/MM3 (4.0-11.0) [...] K/MM3 (1.3-7.0) Lymph # 1.4 K/MM3 (0.8-3.1) [place]# 0.4 K/MM3 (0.4-1.3) Eo # 0.2 K/MM3 (0.0-0.4) Baso # 0.0 K/MM3 (0.0-0.1) Abs. Imm Gran 0.0 K/MM3 Neut 66.3 % (44-76) Lymph 22.6 % (15-43) Monocyte 7.0 % (4.5-10.5) Eo 3.3 % (0-6) Baso 0.5 % (0-2) Imm Gran 0.3 % TSH With Reflex To FT4 02/17/[address] [facility] TSH With Reflex To FT4 4.62 uIU/mL High (0.4-4.2) Urinary Microalbumin 02/17/[address] [facility] Micro-Albumin 381.5 mg/L High (<20) 11 Malb/Creat Ratio 783.4 MG/GM High (0-20) Urine Creat For Micro Albumin 48.7 mg/dL Urinalysis Complete 02/17/[address] [facility] Appear/Color LIGHT YELLOW 12 SP. [place] 1.015 (1.002-1.0 30) Urine PH 5.5 (5.0-8.0) Urine Albumin 1+ Abnormal (Neg) Urine Glucose 4+ Abnormal (Neg) Urine Ketones NEGATIVE (Neg) Urine Bilirubin NEGATIVE (Neg) Urine Hemoglobin NEGATIVE (Neg) Urine Nitrite NEGATIVE (Neg) Urine Leukocyte NEGATIVE (Neg) Urobilinogen NORMAL mg/dL (Norm) Urine WBCs <1 /HPF (0-5) Urine RBCs NONE SEEN /HPF (0-3) Free T4 02/17/[address] [facility] Free T4 0.88 ng/dL [...] with health care provider. DIAGNOSTIC USE: The [place] [employer] (ADA) and the World Health [...] No Show Office Visit Complet ed 08/23/2022 [id number] Glucose Monitori ng From Interstital Tissue Fluid [...] Appt Benja e Curtis Gotti M.D. Created [address] [place] [address] Drive [address] [place] [address] [phone] Curtis Gotti M.D. Closed [address] [place] [address] Drive [address] [place] [address] [phone]
== END 2024-11-05 15:17 | disposition home or self-care (01) ==
LOC: HO.ENCR 13:45
PROVIDERS: PCP Internal Medicine; Visit Provider Internal Medicine
DX: E11.22 Type 2 diabetes mellitus with diabetic chronic kidney disease (principal); N18.4 Chronic kidney disease, stage 4 (severe); Z79.4 Long term (current) use of insulin

== ENCOUNTER → 2024-11-05 13:44 | Outpatient (BNVA) | payer MEDICARE, SELFPAY | PROVIDERS: PCP Internal Medicine; Visit Provider Internal Medicine | DX: E11.22 Type 2 diabetes mellitus with diabetic chronic kidney disease (principal); N18.4 Chronic kidney disease, stage 4 (severe); Z79.4 Long term (current) use of insulin | CPT/HCPCS: 99211 ==

== ENCOUNTER 2024-11-21 13:16 | Outpatient (AMB) | payer MEDICARE, SELFPAY ==
--- OUTSIDE RECORDS SUMMARY | 2024-11-18 14:45 | XMS_ITS | Encounter Summary ---
Author Organization [facility] Address [address] [address] Phone Care Team Providers Care Motor Vehicle Compliance Analyst Name Role Phone Sanford Urrutia MD Primary Care Provider [phone] Reason for Visit * Reason Comments Stage 3b chronic kidney disease Encounter Details Date Type Department Care Team (Late st Contact Info) Description 11/18/2024 2:45 PM EDT Office Visit [facility]. [address] [address] Nir Mendoza MD [address] [address] Stage 3b chronic kidney disease (HCC) (Primary Dx); Hypertensive chronic kidney disease; Metabolic acidosis, normal anion gap (NAG); Type 2 diabetes mellitus with diabetic chronic kidney disease (HCC) Social History Tobacco Use Types Packs/Day Years Used Date Smoking Tobacco: Never Alcohol Use Standard Drinks/Week Comments Yes 0 (1 standard drink = 0.6 oz pure alcohol) Alcoholic Drinks/day: Occasional social drink Sex and Gender Information Value Date Recorded Sex Assigned at Not on file Legal Sex Male 5:09 PM EST Gender Identity Not on file Sexual Orientation Not on file documented as of this encounter Last Filed Vital Signs Vital Sign Reading Time Taken Comments Blood Pressure 140/80 11/18/2024 3:22 PM EDT Pulse 88 11/18/2024 3:22 PM EDT Temperature - - Respiratory Rate - - Oxygen Saturation 99% 11/18/2024 3:22 PM EDT Inhaled Oxygen Concentration - - Weight 94.5 kg (208 lb 6.4 oz) 11/18/2024 3:22 P M EDT Height - - Body Mass Index 29.07 04/09/2020 12:00 PM EST documented in this encounter Progress Notes * Nir Mendoza MD - 11/18/2024 2:45 PM EDT [facility] Patient Name: Jameson Gonzales, Male Date of : 1955, 69 y.o. Date: 11/18/2024 [] New Patient [x] Established Patient [] New Hospital Follow Up [] Established Hospital Follow Up [] Telemed Visit [] H&P Referring MD: Curtis Gotti MD PCP: Sanford Urrutia MD Chief Complaint: Chief Complaint Patient presents with Stage 3b chronic kidney disease Reason For Visit: Jameson Gonzales is a 69 y.o. male for Chronic Kidney Disease hypertension and proteinuria Pt is a pleasant man with a history of longstanding diabetes mellitus with retinopathy and hypertension. He has chronic kidney disease with a baseline creatinine of around 2.0-2.2 mg/dL. He was previouslyseen about five years ago by Dr. Zelaya and Dr. Gutierrez and subsequently failed to keep up with hisfollowup appointments. Taking Sod bicarb BID - stopped it for some time and back on it Overall doing OK No GI losses No NSAID use No renal stones No urinary issues The following portions of the patient's chart were reviewed in this encounter and updated as appropriate: Allergies Meds Problems Med Hx Surg Hx Fam Hx ROS Constitutional: Negative for chills and fever. HENT: Negative for congestion, ear pain, hearing loss and sore throat. Eyes: Negative for pain and discharge. Respiratory: Negative for cough, shortness of breath and wheezing. Cardiovascular: Negative for chest pain, palpitations and leg swelling. Gastrointestinal: Negative for abdominal pain, blood in stool, constipation, diarrhea, nausea and vomiting. Genitourinary: Negative for dysuria, frequency, hematuria and urgency. Musculoskeletal: Negative for back pain, myalgias and neck pain. Skin: Negative for rash. Neurological: Negative for dizziness, tremors and headaches. Endo/Heme/Allergies: Negative for polydipsia. Does not bruise/bleed easily. Full 13 point review of systems unremarkable except as noted above. Past Medical History: Diagnosis Date Chronic kidney disease Diabetes mellitus (HCC) Essential hypertension History reviewed. No pertinent surgical history. Social History Tobacco Use Smoking status: Never Smokeless tobacco: Not on file Substance Use Topics Alcohol use: Yes Comment: Alcoholic Drinks/day: Occasional social drink Family History Problem Relation Age of Onset Cancer Mother Diabetes Mother Dementia Mother Diabetes Sibling Diabetes Father Current Outpatient Medications Medication Sig Dispense Refill aspirin (ST SOPHIE) 81 MG EC tablet Take 1 tablet by mouth 1 (one) time each day Continuous Blood Gluc Sensor (FreeStyle Ezekiel 2 Sensor) misc Empagliflozin 10 MG tablet Take 10 mg by mouth 1 (one) time each day in the morning 90 tablet 3 insulin glargine (Lantus) 100 UNIT/ML injection Inject 60 Units under the skin 1 (one) time each day Insulin Lispro, 1 Unit Dial, (HumaLOG KWIKPEN) 100 UNIT/ML solution pen-injector 10-20 mcg 3 times a day Mounjaro 7.5 MG/0.5ML solution auto-injector INJECT 7.5MG (=0.5ML) SUBCUTANEOUSLY WEEKLY (EVERY 7 DAYS) simvastatin (ZOCOR) 80 MG tablet Take 1 tablet by mouth 1 (one) time each day sodium bicarbonate 650 MG tablet Take 2 tablets (1,300 mg total) by mouth in the morning and 2 tablets (1,300 mg total) in the evening. losartan (Cozaar) 50 MG tablet Take 1 tablet (50 mg total) by mouth 1 (one) time each day 90 tablet3 No current facility-administered medications for this visit. Allergies Allergen Reactions Penicillin G Seasonal Ic [Octacosanol] Objective: Vitals: 11/18/24 1522 BP: 140/80 BP Location: Left upper arm Patient Position: Sitting BP Cuff Size: Adult Pulse: 88 SpO2: 99% Weight: 208 lb 6.4 oz (94.5 kg) Physical Exam Vitals reviewed. Constitutional: Patient does not appear ill. HEENT: YAQUELIN , No JVD Nose: Nose normal. Mouth/Throat: Oropharynx is clear and moist. Eyes: Conjunctivae are normal. Pupils are equal, round, and reactive to light. No scleral icterus. Neck: No thyroid mass and no thyromegaly present. Cardiovascular: Normal rate and regular rhythm. Exam reveals no friction rub. No murmur heard. No edema. Pulmonary/Chest: Effort normal and breath sounds normal. No respiratory distress. No wheezes. No rales. Abdominal: Soft. There is no abdominal tenderness. No hernia. Musculoskeletal: Normal range of motion. She exhibits no deformity. Skin: Skin is warm and dry. No rash noted. No erythema. Psychiatric: Normal mood and affect. eGFR Date Value Ref Range Status 06/02/2020 33 Final eGFR Non-Afr Romanian Date Value Ref Range Status 11/18/2023 35 Final Chemistry Lab Units 11/15/24 1531 11/18/23 0000 06/14/23 0000 CREATININE mg/dL 2.12* 2.02 2.71* BUN mg/dL 50* 42 57* BUN / CREAT RATIO 24 -- -- EGFRNAFR -- 35 -- GLUCOSE mg/dL 381* 228 204* POTASSIUM mmol/L 5.0 5.6 5.5 SODIUM mmol/L 133* 136 135* CO2 mmol/L 15* 15 19 CHLORIDE mmol/L 104 107 108.0 ALBUMIN g/dL 4.3 4.1 3.8 BILIRUBIN TOTAL MG/DL -- 0.30 -- AST U/L -- 24 -- ALT U/L -- 30 -- Bone Mineral Lab Units 11/15/24 1531 11/18/23 0000 06/14/23 0000 CALCIUM mg/dL 8.7 8.9 9.3 PHOSPHORUS mg/dL 2.9 -- -- ALK PHOS U/L -- 136 -- PTH pg/mL 91* -- -- VIT D 25 HYDROXY ng/mL 35.5 -- -- Urine Lab Units 11/15/24 1531 PROT/CREAT RATIO UR mg/g creat 920* Urine Lab Units 11/15/24 1531 PROTEIN UR mg/dL 72.1 PLAN: Assessment & Plan 1. Stage 3b chronic kidney disease (HCC) 2. Hypertensive chronic kidney disease 3. Metabolic acidosis, normal anion gap (NAG) 4. Type 2 diabetes mellitus with diabetic chronic kidney disease (HCC) 1. Chronic kidney disease stage IIIb most likely due to hypertensive kidney disease/ Diabetic nephropathy The renal function is stable Losartan 25 mg daily to continue We discussed the importance of tight control of blood pressure and blood sugar to slow the progression of chronic kidney disease. Also , avoid nephrotoxic agents including NSAIDs. He has non-nephrotic range proteinuria due to underlying diabetic hypertensive kidney disease in the past 2. Diabetes mellitus. The goal is to maintain hemoglobin A1c less than 7%. continue with the ARB for renoprotection. Has a Gram of protein - Will increasing Losartan to 50 mgdaily On SGLT-2 inhibitor/ Jardiance 3. Hypertension. The goal is to maintain blood pressure in <120/80. I encourage him to stay on a lowsodiumdiet. At the present time blood pressure is not at goal. Discussed weight loss Losartan 50 mg as above 4. H/o Mild hyperkalemia : Discussed low K diet again 5. 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 Nir Mendoza MD documented in this encounter Plan of Treatment Upcoming Encounters Date Type Department Care Team (Late st Contact Info) Description 05/19/2025 2:15 PM EDT Office Visit [facility] [address] [address] Nir Mendoza MD [facility] [address] [address] Scheduled Orders Name Type Priority Associated Diagnoses Orde r Schedule Renal function panel Lab Routine Stage 3b chronic kidney disease (HCC) Hypertensive chronic kidney disease Metabolic acidosis, normal anion gap (NAG) Type 2 diabetes mellitus with diabetic chronic kidney disease (HCC) Expected: 04/14/2025, Expires: 07/11/2025 PTH, intact Lab Routine Stage 3b chronic kidney disease (HCC) Hypertensive chronic kidney disease Metabolic acidosis, normal anion gap (NAG) Type 2 diabetes mellitus with diabetic chronic kidney disease (HCC) Expected: 04/14/2025, Expires: 07/11/2025 Urine Protein / creatinine ratio Lab Routine Stage 3b chronic kidney disease (HCC) Hypertensive chronic kidney disease Metabolic acidosis, normal anion gap (NAG) Type 2 diabetes mellitus with diabetic chronic kidney disease (HCC) Expected: 04/14/2025, Expires: 07/11/2025 Vitamin D 25 hydroxy Lab Routine Stage 3b chronic kidney disease (HCC) Hypertensive chronic kidney disease Metabolic acidosis, normal anion gap (NAG) Type 2 diabetes mellitus with diabetic chronic kidney disease (HCC) Expected: 04/14/2025, Expires: 07/11/2025 documented as of this encounter Visit Diagnoses Diagnosis Stage 3b chronic kidney disease (HCC)- Primary Hypertensive chronic kidney disease Metabolic acidosis, normal anion gap (NAG) Type 2 diabetes mellitus with diabetic chronic kidney disease (HCC) documented in this encounter Care Teams Motor Vehicle Compliance Analyst Relationship Specialty Start Date End Date Sanford Urrutia MD [address] [place] [address] [id number] [place], [place] PCP - General 03/23/20 documented as of this encounter
--- NOTE | 2024-11-21 13:35 | A.OFFPC_ITS ---
Vital Signs 11/21/24 13:41 Height 6 ft Weight 207 lb BMI 28.1 BP 130/66 Blood Pressure Location Rt brachial Position Sitting Respiration 17 Pulse 69 Pulse Source Pulse Oximeter Temp 97.7 F Temp Source Temporal Artery Scan Pulse Oximetry (%) 98 Oxygen Delivery Method Room Air Intake Visit Reasons: 3 month f/u Firing Pin Gauger Required: No Accompanied by: Self / Same As Patient Allergies No Known Allergies (No Known Allergies*) Allergy (Verified 11/21/24 13:36) Tobacco use date assessed: 08/07/24 Fall risk assessment: No Falls in past year Last assessed Fall Risk: 11/21/24 Dental Screening Dental Screen Date: 08/07/24 Did you have a dental visit in the last 12 months?: Yes Did you have a dental problem in the last 6 months where you did not have access to dental care?: No HPI HPI Comments History of Present Illness Details The patient is a 69-year-old male presenting with a routine follow-up appointment for ongoing medical management. There are no acute complaints today, but the patient has a history of type 2 diabetes mellitus, hypercholesterolemia, and hypertension. The patient reports working with an assembler installer structures and a dietitian. He has been on a diet plan that involves eating meals with mixed vegetables and meat as guided by the dietitian, resulting in a weight loss of 11 pounds since August. Notably, the patient's weight has varied from 208 pounds in July to a recent measurement of 207 pounds, having reached a peak of 216 pounds in September. He has been on various medications for diabetes, hypercholesterolemia, and hypertension, including Mounjaro, which he finds helps control appetite and manage sugar levels effectively. He has recently run out of his medication Jardiance, also known as Empagliflozin, and is awaiting a refill. Additionally, the patient mentioned issues with constipation, noting that he feels blacked up. Medical History: - Type 2 Diabetes Mellitus - Hypercholesterolemia - Hypertension Medications: - Atorvastatin for hypercholesterolemia - Jardiance (Empagliflozin) for diabetes (patient awaiting refill) - Lispro 15 units with meals for diabete s - Mounjaro 7.5 mg once a week for diabet es - Losartan 25 mg currently, will increas e to 50 mg for hypertension Social History: - Engaged in dietary changes with a focu s on healthier eating and weight loss [facility] Medical History (Updated 11/21/24 @ 14:00 by Damien Marlow MD) Hyperlipidemia Hypertension Diabetes Surgical History No pertinent past surgical history Family History Mother No problems noted. Father No problems noted. Social History Housing: House Alcohol intake: current Patient Tobacco Use Status: Former Tobacco user e-Cigarette/Vaping Use: Former Use service: No Current occupational status: retired Cognitive needs: No Hearing needs: No Vision needs: Yes (rx glasses) Questionnaire Thrive Questionnaire Date Thrive assessed: 08/07/24 AUDIT C Alcohol Use Questionnaire (AUDIT-C) 1. How often do you have a drink containing alcohol?: 2-3 times a week 2. How many drinks containing alcohol do you have on a typical day when you are drinking?: 1 or 2 3. How often do you have six or more drinks on one occasion?: Never Total Score: 3 CHINMAY-7 AMB Questionnaire CHINMAY-7 Date CHINMAY - 7 assessed: 08/07/24 Source: Developed by Drs. Nino Marcum, Jia Castro, Guido Morales and colleagues, with an educational sally from [employer]. Review of Systems Const Details: - General: Denies specific complaints - Gastrointestinal: Reports issues with constipation All systems reviewed & are unremarkable except as noted in HPI and below Physical exam (Primary Care) Vital Signs: Last Vital Signs Temp 97.7 F 11/21/24 13:41 Pulse 69 11/21/24 13:41 Resp 17 11/21/24 13:41 BP 130/66 11/21/24 13:41 Pulse Ox 98 11/21/24 13:41 Oxygen Delivery Method Room Air 11/21/24 13:41 BMI result Body Mass Index 28.1 Tobacco/Smoking Status: Tobacco use Status Tobacco use date assessed 08/07/24 11/21/24 13:45 Patient Tobacco Use Status Former Tobacco user 11/21/24 13:45 e-Cigarette/Vaping Use Former Use 11/21/24 13:45 Thrive Assessment: Date of Thrive Assessment Date Thrive assessed 08/07/24 11/21/24 13:45 Const Other: GENERAL: NAD HEENT: NC/AT. MMM. Conjunctivae are pink and anicteric. LUNGS:CTAB, No W/R/R, no use of accessory muslces of respiration. HEART: RRR, no M/R/G, no heaves or thrills. ABDOMEN: Normal BS, soft, NT/ND, No HSMG, no guarding or rebound tenderness. MUSCULOSKELETAL: Moving all four extremities spotaneously. EXTREMITIES: No cyanosis, clubbing, or edema. 2+ dorsalis pedis, posterior tibial pulses. DERMATOLOGIC: Wound on right mustafa NEUROLOGIC: AOX3 PSYCH: Normal mood with good judgement Coding Level of Care Code Est Pt Level 4 (95316) Complex EM visit Add On G2211 Diagnoses Type 2 diabetes mellitus with stage 4 chronic kidney disease, with long-term current use of insulin E11.22; N18.4; Z79.4 Diabetes mellitus type: type 2 Diabetes mellitus prison insulin use: with senior technical analyst use Diabetes mellitus complication status: with kidney complications Diabetes mellitus complication detail: with chronic kidney disease Chronic kidney disease stage: stage 4 (GFR 15-29) Hypertension, unspecified type I10 Hypertension type: unspecified Hyperlipidemia, unspecified hyperlipidemia type E78.5 Hyperlipidemia type: unspecified Assessment & Plan Assessment & Plan (1) Diabetes: Comment: - Continue current regimen: Lispro 15 units with meals, Mounjaro 7.5 mg weekly - Refill Jardiance; monitor blood sugar levels closely - Follow up with the assembler installer structures for A1c management Code(s): E11.9 - Type 2 diabetes mellitus without complications Category: Medical Qualifiers: Diabetes mellitus type: type 2 Diabetes mellitus prison insulin use: with senior technical analyst use Diabetes mellitus complication status: with kidney complications Diabetes mellitus complication detail: with chronic kidney disease Chronic kidney disease stage: stage 4 (GFR 15-29) Qualified Code(s): E11.22 - Type 2 diabetes mellitus with diabetic chronic kidney disease; N18.4 - Chronic kidney disease, stage 4 (severe); Z79.4 - senior care (current) use of insulin (2) Hypertension: Comment: - Continue current medication: Losartan 50 mg - Pressures well controlled Code(s): I10 - Essential (primary) hypertension Category: Medical Qualifiers: Hypertension type: unspecified Qualified Code(s): I10 - Essential (primary) hypertension (3) Hyperlipidemia: Comment: - Continue Atorvastatin - Plan to check cholesterol levels in next scheduled physical Code(s): E78.5 - Hyperlipidemia, unspecified Category: Medical Qualifiers: Hyperlipidemia type: unspecified Qualified Code(s): E78.5 - Hyperlipidemia, unspecified Plan During the visit, we discussed the patient's successful dietary changes and weight loss, as well as the continuation of his medications for diabetes, hypertension, and hypercholesterolemia. The option and importance of refilling and taking Jardiance were emphasized. We reviewed the patient's hypertension management, with plans to increase his Losartan dose from 25 mg to 50 mg upon restocking. Continued monitoring of his A1c and other lab results was advised, with management by his assembler installer structures. The patient expressed understanding of these plans and options. An annual physical is proposed for the next visit, with blood work to reassess lipid levels. Medications: Refilled Jardiance (empagliflozin) 10 mg PO DAILY 90 tabs 3RF NS E11.22 - Type 2 diabetes mellitus with diabetic chronic kidney disease, N18.4 - Chronic kidney disease, stage 4 (severe), Z79.4 - senior care (current) use of insulin Patient Instructions: - Continue with prescribed medications - Refill Jardiance and resume as directed - Continue dietary modifications as discussed with dietitian - Follow up for a physical in four months and schedule blood work prior to the visit - Monitor for symptoms of constipation and contact if worsened
[2024-11-21 13:41] VITALS: BP 130/66; PULSE 69; RESP 17; TEMP 36.5; O2SAT 98; BMI 28.1
--- OUTSIDE RECORDS SUMMARY | 2024-11-21 17:18 | XMS_ITS | Continuity of Care Document ---
Author Organization [facility] [address] [place] [address] Phone [phone] Care Team Providers Care Dedenter Name Role Phone Sanford Urrutia M.D. Care Team Information Receiv er [phone] Problems Active Problems Provider Date Type 2 [...] 3units Curtis Gotti M.D. 12/21/2023 Freestyle Ezekiel 3/[place]/Glucose Monitoring Cvxfgj2Injmhb Device use with sensors to check blood sugar dx:e11.9 1units Curtis Gotti M.D. 12/20/2023 Cfgrvzbo5jf/0.5ML Solution Pen-Inject 1 injection every week as directed 6ml Curtis Gotti M.D. 11/21/2023 Freestyle Ezekiel 3/Sensor/Glucose Monitoring Yiuyef6Wbsusp Misc as directed 3unmike Gotti M.D. 07/18/2023 Bwamyhymf66sf Tablets 1 tablet by mouth every day 90tabs Curtis Gotti M.D. 07/18/2023 Novolog Gkuwxcv487Ufzm/ML Solution Pen-Inject Inject 10-15 Units Subcutaneously 3 Times A Day 60units E11.9 Curtis Gotti M.D. 08/09/2022 Lant Htfjogoc097Bhkj/ML Solution Pen-Inject Inject 54 Units In Am 60ml E11.8 Curtis Gotti M.D. 02/07/2022 Okbzxectcd43we Tablets Take 1/2 Tablet Daily 90tabs Curtis Gotti M.D. Atorvastatin Zwoyipq79ox Tablets 1 by mouth every day 30tabs Sanford Urrutia M.D. Losartan Divdiuvgm98sy Tablets 1 by mouth every day 90tabs [...] 30 mg/dL 5-40 LDL Chol Calc ([facility]) 58 mg/dL 0-99 LDL Calc Comment: TNP Urinalysis, Complete 11/17/2023 [facility] Specific [place] 1.016 1.005-1.03 0 pH 5.5 5.0-7.5 Urine-Color [...] 7.7% TSH With Reflex To FT4 08/24/2022 [facility] TSH With Reflex To FT4 3.54 uIU/mL (0.4-4.2) Urinary Microalbumin 08/24/2022 [facility] Micro-Albumin 305.0 mg/L High (<20) 6 Malb/Creat Ratio 509.3 MG/GM High (0-20) Urine Creat For Micro Albumin 59.9 mg/dL Complete Abc With Diff 08/24/2022 [facility] WBC 4.9 K/MM3 (4.0-11.0) [...] K/MM3 (1.3-7.0) Lymph # 1.3 K/MM3 (0.8-3.1) [place]# 0.4 K/MM3 (0.4-1.3) Eo # 0.1 K/MM3 (0.0-0.4) Baso # 0.0 K/MM3 (0.0-0.1) Abs. Imm Gran 0.0 K/MM3 Neut 62.6 % (44-76) Lymph 26.7 % (15-43) Monocyte 7.2 % (4.5-10.5) Eo 2.7 % (0-6) Baso 0.4 % (0-2) Imm Gran 0.4 % Urinalysis Complete 08/24/2022 [facility] Appear/Color LIGHT YELLOW 7 SP. [place] 1.019 (1.002-1.0 30) Urine PH 6.0 (5.0-8.0) Urine Albumin 1+ Abnormal (Neg) Urine Glucose 4+ Abnormal (Neg) Urine Ketones NEGATIVE (Neg) Urine Bilirubin NEGATIVE (Neg) Urine Hemoglobin NEGATIVE (Neg) Urine Nitrite NEGATIVE (Neg) Urine Leukocyte NEGATIVE (Neg) Urobilinogen NORMAL mg/dL (Norm) Urine WBCs NONE SEEN /HPF (0-5) Urine RBCs <1 /HPF (0-3) Lipid Panel 08/24/2022 [facility] Cholesterol, Total 175 mg/dL (<200) Triglyceride 213 mg/dL High (<150) HDL Chol 41 mg/dL (>39) LDL Cholesterol, Calculated 91 mg/dL (0-130) Non HDL Cholesterol (Calc) 134 mg/dL (<160) Comprehensive Metabolic Panl 08/24/2022 [facility] Glucose 184 mg/dL High [...] Hemoglobin A1c 8.2% Comprehensive Metabolic Panl 02/17/2022 [facility] Glucose 144 mg/dL High [...] 36 ML/MIN/1.7 3M2 9 Lipid Panel 02/17/2022 [facility] Cholesterol, Total 142 mg/dL (<200) Triglyceride 106 mg/dL (<150) HDL Chol 50 mg/dL (>39) LDL Cholesterol, Calculated 71 mg/dL (0-130) Non HDL Cholesterol (Calc) 92 mg/dL (<160) Hemoglobin A1c 02/17/2022 [facility] Hemoglobin A1c 8.5 % High (4.0-5.6) 10 Complete Abc With Diff 02/17/2022 [facility] WBC 6.1 K/MM3 (4.0-11.0) [...] K/MM3 (1.3-7.0) Lymph # 1.4 K/MM3 (0.8-3.1) [place]# 0.4 K/MM3 (0.4-1.3) Eo # 0.2 K/MM3 (0.0-0.4) Baso # 0.0 K/MM3 (0.0-0.1) Abs. Imm Gran 0.0 K/MM3 Neut 66.3 % (44-76) Lymph 22.6 % (15-43) Monocyte 7.0 % (4.5-10.5) Eo 3.3 % (0-6) Baso 0.5 % (0-2) Imm Gran 0.3 % TSH With Reflex To FT4 02/17/2022 [facility] TSH With Reflex To FT4 4.62 uIU/mL High (0.4-4.2) Urinary Microalbumin 02/17/2022 [facility] Micro-Albumin 381.5 mg/L High (<20) 11 Malb/Creat Ratio 783.4 MG/GM High (0-20) Urine Creat For Micro Albumin 48.7 mg/dL Urinalysis Complete 02/17/2022 [facility] Appear/Color LIGHT YELLOW 12 SP. [place] 1.015 (1.002-1.0 30) Urine PH 5.5 (5.0-8.0) Urine Albumin 1+ Abnormal (Neg) Urine Glucose 4+ Abnormal (Neg) Urine Ketones NEGATIVE (Neg) Urine Bilirubin NEGATIVE (Neg) Urine Hemoglobin NEGATIVE (Neg) Urine Nitrite NEGATIVE (Neg) Urine Leukocyte NEGATIVE (Neg) Urobilinogen NORMAL mg/dL (Norm) Urine WBCs <1 /HPF (0-5) Urine RBCs NONE SEEN /HPF (0-3) Free T4 02/17/2022 [facility] Free T4 0.88 ng/dL [...] with health care provider. DIAGNOSTIC USE: The [place] [employer] (ADA) and the World Health [...] No Show Office Visit Complet ed 08/23/2022 80060 Glucose Monitori ng From Interstital Tissue Fluid [...] Appt Benja e Curtis Gotti M.D. Created [address] [place] [address] Drive [address] [place] [address] [phone] Curtis Gotti M.D. Closed [address] [place] [address] Drive [address] [place] [address] [phone]
--- OUTSIDE RECORDS SUMMARY | 2024-11-21 17:18 | XMS_ITS | Clinical Summary ---
Author Organization [facility] Address [address] [address] Phone Care Team Providers Care Chute Boss Name Role Phone Sanford Urrutia MD Primary Care Provider [phone] Allergies Active Allergy Reactions Criticality Noted Date [...] Blood Gluc Sensor (FreeStyle Ezekiel 2 Sensor) [facility] Active Mounjaro 7.5 MG/0.5ML solution auto-injector INJECT 7.5MG (=0.5ML) SUBCUTANEOUSLY WEEKLY (EVERY 7 DAYS) Active sodium bicarbonate 650 MG tablet Take 2 tablets (1,300 mg total) by mouth in the morning and 2 tablets (1,300 mg total) in the evening. Active Empagliflozin 10 MG tablet Take 10 mg by mouth 1 (one) time each day in the morning 90 tablet 3 025 2025 Active losartan (Cozaar) 50 MG tablet Take 1 tablet (50 mg total) by mouth 1 (one) time each day 90 tablet 3 025 2025 Active sodium bicarbonate 650 MG tablet Take 1 tablet (650 mg total) by mouth in the morning and 1 tablet (650 mg total) in the evening. 024 2024 Discontinued Empagliflozin 10 MG tablet Take 10 mg by mouth 1 (one) time each day in the morning 024 2024 Discontinued(R eorder (does not appear on AVS)) losartan (COZAAR) 25 MG tablet Take 1 tablet (25 mg total) by mouth 1 (one) time each day 90 tablet 3 025 2024 Discontinued Active Problems Problem Noted Date Diagnosed Date [...] Encounters Date Type Department Care Team Description 11/18/2024 2:45 PM EDT Office Visit [facility] [address] [address] Nir Mendoza MD Stage 3b chronic kidney disease (HCC) (Primary Dx); Hypertensive chronic kidney disease; Metabolic acidosis, normal anion gap (NAG); Type 2 diabetes mellitus with diabetic chronic kidney disease (HCC) 09/25/2024 Orders Only [facility] [address] [address] Nir Mendoza MD Stage 3b chronic kidney [...] oz) 11/18/2024 3:22 P M EDT Height 180.3 cm (5' 11 ) 04/09/2020 12:00 PM EST Body Mass Index 29.07 04/09/2020 12:00 PM EST Plan of Treatment Upcoming Encounters Date Type Department Care Team (Late st Contact Info) Description 05/19/2025 2:15 PM EDT Office Visit [facility] [address] [address] Nir Mendoza MD [address] [id number] Health Maintenance Due Date Last Done Comments [...] on patient's age to complete this topic Procedures Procedure Name Priority Date/Time Associated Diagnosis Comments VITAMIN D 25 HYDROXY Routine 11/15/2024 3:31 PM EDT Stage 3b chronic kidney disease (HCC) Metabolic acidosis, normal anion gap (NAG) Hypertensive chronic kidney disease Type 2 diabetes mellitus with diabetic chronic kidney disease (HCC) PROTEIN / CREATININE RATIO, URINE Routine 11/15/2024 3:31 PM EDT Stage 3b chronic kidney disease (HCC) Metabolic acidosis, normal anion gap (NAG) Hypertensive chronic kidney disease Type 2 diabetes mellitus with diabetic chronic kidney disease (HCC) RENAL FUNCTION PANEL Routine 11/15/2024 3:31 PM EDT Stage 3b chronic kidney disease (HCC) Metabolic acidosis, normal anion gap (NAG) Hypertensive chronic kidney disease Type 2 diabetes mellitus with diabetic chronic kidney disease (HCC) PTH, INTACT Routine 11/15/2024 3:31 PM EDT Stage 3b chronic kidney disease (HCC) Metabolic acidosis, normal anion gap (NAG) Hypertensive chronic kidney disease Type 2 diabetes mellitus with diabetic chronic kidney disease (HCC) from Last 3 Months Results * (ABNORMAL) Urine Protein / creatinine ratio (11/15/2024 3:31 PM EDT) Creatinine, Ur 78.4 Not Estab. mg/dL [facility] Protein, Ur 72.1 Not Estab. mg/dL [facility] Urine Protein/Creati nine Ratio 920(H) 0 - 200 mg/g creat [facility] Urine specimen (specimen) Urine specimen obtained by clean catch procedure / Unknown 11/15/2024 3:31 PM EDT 11/15/2024 us Nir Mendoza MD LAB URINE ORDERABLES Final Resu lt [facility] [employer] [address] [place] [address] * Vitamin D 25 hydroxy (11/15/2024 3:31 PM EDT) Vitamin D, 25-OH, Total 35.5 30.0 - 100.0 ng/mL [facility] Comment: Vitamin D deficiency has been defined by the [place] of Medicine and an Endocrine Society practice guideline as a level of serum 25-OH vitamin D less than 20 ng/mL (1,2). The Endocrine Society went on to further define vitamin D insufficiency as a level between 21 and 29 ng/mL (2). 1. IOM ([place] of Medicine). 2010. Dietary reference intakes for calcium and D. [place]: The National Academies Press. 2. Lisa MF, Ashish AKHTAR, Eran BUTLER, et al. Evaluation, treatment, and prevention of vitamin D deficiency: an Endocrine Society clinical practice guideline. JCEM. 2010; 96(7):1911-30. Blood specimen (specimen) Venous blood / Unknown 11/15/2024 3:31 PM EDT 11/15/2024 Nir Mendoza MD LAB BLOOD ORDERABLES Final Resu lt Performing Organization Address City/[facility]/ZIP Co de Phone Number [facility] [address] [place] [address] * (ABNORMAL) PTH, intact (11/15/2024 3:31 PM EDT) PTH 91(H) 15 - 65 pg/mL [facility] Blood specimen (specimen) Venous blood / Unknown 11/15/2024 3:31 PM EDT 11/15/2024 us Nir Mendoza MD LAB BLOOD ORDERABLES Final Resu lt [facility] [address] [place] [address] * (ABNORMAL) Renal function panel (11/15/2024 3:31 PM EDT) Glucose 381(H) 70 - 99 mg/dL [facility] BUN 50(H) 8 - 27 mg/dL [facility] Creatinine 2.12(H) 0.76 - 1.27 mg/dL [facility] eGFR CKD-EPI CR 2020 33(L) >59 mL/min/1.7 3 [facility] BUN/Creatinine Ratio 24 10 - 24 [facility] Sodium 133(L) 134 - 144 mmol/L [facility] Potassium 5.0 3.5 - 5.2 mmol/L [facility] Chloride 104 96 - 106 mmol/L [facility] Bicarbonate (CO2) 15(L) 20 - 29 mmol/L [facility] Calcium 8.7 8.6 - 10.2 mg/dL [facility] Albumin 4.3 3.9 - 4.9 g/dL [facility] Phosphorus 2.9 2.8 - 4.1 mg/dL [facility] Blood specimen (specimen) Venous blood / Unknown 11/15/2024 3:31 PM EDT 11/15/2024 us Nir Mendoza MD LAB BLOOD ORDERABLES Final Resu lt [facility] [address] [place] [address] from Last [address] [facility] Care Teams Chute Boss Relationship Specialty Start Date End Date Sanford Urrutia MD [id number] [place] PCP - General 03/23/20
== END 2024-11-21 14:02 | disposition home or self-care (01) ==
PROVIDERS: PCP Student in an Organized Health Care Education/Training Program; Visit Provider Student in an Organized Health Care Education/Training Program
DX: I12.9 Hypertensive chronic kidney disease with stage 1 through stage 4 chronic kidney disease, or unspecified chronic kidney disease (principal); E11.22 Type 2 diabetes mellitus with diabetic chronic kidney disease; N18.4 Chronic kidney disease, stage 4 (severe); Z79.4 Long term (current) use of insulin; E78.5 Hyperlipidemia, unspecified

== ENCOUNTER → 2024-11-21 13:16 | Outpatient (BNVA) | payer MEDICARE, SELFPAY | PROVIDERS: PCP Internal Medicine; Visit Provider Student in an Organized Health Care Education/Training Program | DX: E11.22 Type 2 diabetes mellitus with diabetic chronic kidney disease (principal); I12.9 Hypertensive chronic kidney disease with stage 1 through stage 4 chronic kidney disease, or unspecified chronic kidney disease; N18.4 Chronic kidney disease, stage 4 (severe); E78.5 Hyperlipidemia, unspecified; Z79.4 Long term (current) use of insulin; Z79.899 Other long term (current) drug therapy | CPT/HCPCS: 99212 ==

== ENCOUNTER 2024-12-25 13:51 | Outpatient (AMB) | payer MEDICARE, SELFPAY ==
--- NOTE | 2024-12-25 13:55 | A.OFFVIS_ITS ---
Vital Signs 12/25/24 13:56 Height 6 ft Weight 207 lb 3.752 oz BMI 28.1 BP 120/60 Blood Pressure Location Rt brachial Position Sitting Pulse 51 Pulse Source Pulse Oximeter Pulse Oximetry (%) 98 Oxygen Delivery Method Room Air Intake Visit Reasons: A1C/DM follow up Intake Note: Patient presents today for a follow-up on Type 2 Diabetes Mellitus: Last Diabetic eye exam was on: October 01, 2024, [facility] Last Podiatry exam was on: Patient does not see a Hospital Cleaning Specialist Most recent HbA1c: 8.1%, 12/25/2024 Random Glucose: 208 mg/dL Accompanied by: Self / Same As Patient Allergies No Known Allergies (No Known Allergies*) Allergy (Verified 12/25/24 14:02) HPI Comments Details: 69 year old male who is seen in consultation for T2DM in setting of CKD Stage 4 at the request of PCP. PMH HTN, HLD Initially diagnosed with T2DM in since age 39. Was initially started on treatment with metformin Current regimen Mounjaro 7.5 mg Jardiance 10 mg QD Novolog 15-20-he is more or less playing around with doses. CGM reviewed-14 day GMI 8.1%. 0% lows. He does want to use his other phone but advised he needs to wait until he starts his new sensor A1C today is 8.1% from 8.4% Treats lows with sugar. Advised to check sugar after to ensure it is rising. Family history of T2DM in father, mother , sister brothers . Has eyes checked yearly-Dr. 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 Has neuropathy, last foot exam 2-3 yrs ago , sees podiatry. [facility] neph[place] [facility] [place] CLAUDIO/ARB. Has HLD, on statin. Last LDL as measured on 111. Denies CAD.Has CVA Has scheduled diabetic education and nutrition ROS CONSTITUTIONAL: Denies weight loss, fever and chills. HEENT: Denies changes in vision and hearing. RESPIRATORY: Denies SOB and cough. CV: Denies palpitations and CP GI: Denies abdominal pain, nausea, vomiting and diarrhea. : Denies dysuria and urinary frequency. MSK: Denies new myalgia and joint pain. SKIN: Denies rash and pruritus. NEUROLOGICAL: Denies headache PSYCHIATRIC: Denies recent changes in mood. PHYSICAL EXAM: GENERAL: Alert and oriented x 3. NAD EYES: EOMI. Anicteric. HENT: Moist mucous membranes. No scleral icterus. No cervical lymphadenopathy. LUNGS: Clear to auscultation bilaterally. CARDIOVASCULAR: Regular rate and rhythm. No murmur. No JVD. ABDOMEN: Soft, non-tender +bs EXTREMITIES: No edema. Non-tender. SKIN: No rashes or lesions. Warm. NEUROLOGIC: No focal neurological deficits. CN II-XII grossly intact PSYCHIATRIC: Cooperative. Appropriate mood and affect [facility] Medical History Hyperlipidemia Hypertension Diabetes Surgical History No pertinent past surgical history Family History Mother No problems noted. Father No problems noted. Social History Housing: House Alcohol intake: current Patient Tobacco Use Status: Former Tobacco user e-Cigarette/Vaping Use: Former Use service: No Current occupational status: retired Cognitive needs: No Hearing needs: No Vision needs: Yes (rx glasses) Physical Exam Vital Signs: Last Vital Signs Pulse 51 12/25/24 13:56 BP 120/60 12/25/24 13:56 Pulse Ox 98 12/25/24 13:56 Oxygen Delivery Method Room Air 12/25/24 13:56 BMI result Body Mass Index 28.1 Results AMB Hemoglobin A1c AMB Hemoglobin A1c 8.1 % Last Edit by AARON Araiza on 12/25/24 14:13 Results Reviewed Results Reviewed: Laboratory Last Values Glucose (Clinic) 208 mg/dL (60-115) H 12/25/24 14:01 Assessment & Plan Assessment & Plan (1) Diabetes: Code(s): E11.9 - Type 2 diabetes mellitus without complications Category: Medical Qualifiers: Diabetes mellitus type: type 2 Diabetes mellitus halfway insulin use: with halfway use Diabetes mellitus complication status: with kidney complications Diabetes mellitus complication detail: with chronic kidney disease Chronic kidney disease stage: stage 4 (GFR 15-29) Qualified Code(s): E11.22 - Type 2 diabetes mellitus with diabetic chronic kidney disease; N18.4 - Chronic kidney disease, stage 4 (severe); Z79.4 - residential (current) use of insulin (2) Hypertension: Comment: - Continue current medication: Losartan 50 mg - Pressures well controlled Code(s): I10 - Essential (primary) hypertension Category: Medical Qualifiers: Hypertension type: unspecified Qualified Code(s): I10 - Essential (pr imary) hypertension (3) Hyperlipidemia: Comment: - Continue Atorvastatin - Plan to check cholesterol levels in next scheduled physical Code(s): E78.5 - Hyperlipidemia, unspecified Category: Medical Qualifiers: Hyperlipidemia type: unspecified Qualified Code(s): E78.5 - Hyperlipidemia, unspecified Plan Diabetes-improving control, still suboptimal Developed sliding scale for patient which may need adjustment Increase jardiance to 25mg daily Continue mounjaro 7.5mg Treat hypoglycemia by rules of 15s Return in one month for CGM check Orders: Orders AMB Hemoglobin A1c Today E11.22 - Type 2 diabetes mellitus with diabetic chronic kidney disease, N18.4 - Chronic kidney disease, stage 4 (severe), Z79.4 - residential (current) use of insulin Medications: New Jardiance (empagliflozin) 25 mg PO DAILY 90 tabs 3RF NS E11.22 - Type 2 diabetes mellitus with diabetic chronic kidney disease, N18.4 - Chronic kidney disease, stage 4 (severe), Z79.4 - residential (current) use of insulin Changed From Novolog FlexPen U-100 Insulin (insulin aspart U-100) 15 units (0.15 mL) subcut TIDWMEAL 6 mL 3RF NS E11.22 - Type 2 diabetes mellitus with diabetic chronic kidney disease, N18.4 - Chronic kidney disease, stage 4 (severe), Z79.4 - residential (current) use of insulin To Novolog FlexPen U-100 Insulin (insulin aspart U-100) Sliding scale with meals For BG <100 take 0 units For BG 100-199 take 6 units For BG 200-299 take 8 units For BG >300 take take 10 units 15 units (0.15 mL) subcut TIDWMEAL 6 mL 3RF NS E11.22 - Type 2 diabetes mellitus with diabetic chronic kidney disease, N18.4 - Chronic kidney disease, stage 4 (severe), Z79.4 - salvage determiner (current) use of insulin From Novolog FlexPen U-100 Insulin (insulin aspart U-100) Sliding scale with meals For BG <100 take 0 units For BG 100-199 take 6 units For BG 200-299 take 8 units For BG >300 take take 10 units 15 units (0.15 mL) subcut TIDWMEAL 6 mL 3RF NS E11.22 - Type 2 diabetes mellitus with diabetic chronic kidney disease, N18.4 - Chronic kidney disease, stage 4 (severe), Z79.4 - residential (current) use of insulin To Novolog FlexPen U-100 Insulin (insulin aspart U-100) Sliding scale with meals For BG <100 take 0 units For BG 100-199 take 6 units For BG 200-299 take 8 units For BG >300 take take 10 units 1 sliding scale dose subcut TIDWMEAL 6 mL 3RF NS E11.22 - Type 2 diabetes mellitus with diabetic chronic kidney disease, N18.4 - Chronic kidney disease, stage 4 (severe), Z79.4 - salvage determiner (current) use of insulin Discontinued Jardiance (empagliflozin) Discontinued Reason: Doctor's Order 10 mg PO DAILY 90 tabs 3RF NS E11.22 - Type 2 diabetes mellitus with diabetic chronic kidney disease, N18.4 - Chronic kidney disease, stage 4 (severe), Z79.4 - salvage determiner (current) use of insulin Coding Level of Care Code Est Pt Level 4 (93632) Diagnoses Type 2 diabetes mellitus with stage 4 chronic kidney disease, with long-term current use of insulin E11.22; N18.4; Z79.4 Diabetes mellitus type: type 2 Diabetes mellitus exterminator helper insulin use: with halfway use Diabetes mellitus complication status: with kidney complications Diabetes mellitus complication detail: with chronic kidney disease Chronic kidney disease stage: stage 4 (GFR 15-29) Hypertension, unspecified type I10 Hypertension type: unspecified Hyperlipidemia, unspecified hyperlipidemia type E78.5 Hyperlipidemia type: unspecified
[2024-12-25 13:56] VITALS: BP 120/60; PULSE 51; O2SAT 98; BMI 28.1
[2024-12-25 14:08] LABS: Glucose, Whole Blood 208 mg/dL (60-115)
--- OUTSIDE RECORDS SUMMARY | 2024-12-25 17:36 | XMS_ITS | Continuity of Care Document ---
Author Organization [facility] [address] [place] [address] Phone [phone] Care Team Providers Care Specialist Physician Name Role Phone Sanford Urrutia M.D. Care Team Information Receiv er [phone] Problems Active Problems Provider Date Type 2 [...] 3units Curtis Gotti M.D. 12/21/2023 Freestyle Ezekiel 3/[place]/Glucose Monitoring Xehzeu5Fyhcoo Device use with sensors to check blood sugar dx:e11.9 1units Curtis Gotti M.D. 12/20/2023 Ympvfzlg8uq/0.5ML Solution Pen-Inject 1 injection every week as directed 6ml Curtis Gotti M.D. 11/21/2023 Freestyle Ezekiel 3/Sensor/Glucose Monitoring Lryeop3Mgddyf Misc as directed 3unmike Gotti M.D. 07/18/2023 Toqplaptw05vc Tablets 1 tablet by mouth every day 90tabs Curtis Gotti M.D. 07/18/2023 Novolog Dglnlvv012Tsjr/ML Solution Pen-Inject Inject 10-15 Units Subcutaneously 3 Times A Day 60units E11.9 Curtis Gotti M.D. 08/09/2022 Lant Dctophpa144Trnr/ML Solution Pen-Inject Inject 54 Units In Am 60ml E11.8 Curtis Gotti M.D. 02/07/2022 Srxuauzmnc00ms Tablets Take 1/2 Tablet Daily 90tabs Curtis Gotti M.D. Atorvastatin Rilhhfj49je Tablets 1 by mouth every day 30tabs Sanford Urrutia M.D. Losartan Fhlrudari94nu Tablets 1 by mouth every day 90tabs [...] Balta 30 mg/dL 5-40 LDL Chol Calc ([facility]) 58 mg/dL 0-99 LDL Calc Comment: TNP Urinalysis, Complete 11/17/2023 [facility] [place] 1.016 1.005-1.03 0 pH 5.5 5.0-7.5 Urine-Color [...] 1.4-7.0 Lymphs (Absolute) 1.3 x10E3/uL 0.7-3.1 Monocytes(Absol [place]) 0.3 x10E3/uL 0.1-0.9 Eos (Absolute) 0.1 x10E3/uL [...] 7.7% TSH With Reflex To FT4 08/24/2022 [facility] TSH With Reflex To FT4 3.54 uIU/mL (0.4-4.2) Urinary Microalbumin 08/24/2022 [facility] Micro-Albumin 305.0 mg/L High (<20) 6 Malb/Creat Ratio 509.3 MG/GM High (0-20) Urine Creat For Micro Albumin 59.9 mg/dL Complete Abc With Diff 08/24/2022 [facility] WBC 4.9 K/MM3 (4.0-11.0) [...] K/MM3 (1.3-7.0) Lymph # 1.3 K/MM3 (0.8-3.1) Liberty# 0.4 K/MM3 (0.4-1.3) Eo # 0.1 K/MM3 (0.0-0.4) Baso # 0.0 K/MM3 (0.0-0.1) Abs. Imm Gran 0.0 K/MM3 Neut 62.6 % (44-76) Lymph 26.7 % (15-43) Monocyte 7.2 % (4.5-10.5) Eo 2.7 % (0-6) Baso 0.4 % (0-2) Imm Gran 0.4 % Urinalysis Complete 08/24/2022 [facility] Appear/Color LIGHT YELLOW 7 SP. [place] 1.019 (1.002-1.0 30) Urine PH 6.0 (5.0-8.0) Urine Albumin 1+ Abnormal (Neg) Urine Glucose 4+ Abnormal (Neg) Urine Ketones NEGATIVE (Neg) Urine Bilirubin NEGATIVE (Neg) Urine Hemoglobin NEGATIVE (Neg) Urine Nitrite NEGATIVE (Neg) Urine Leukocyte NEGATIVE (Neg) Urobilinogen NORMAL mg/dL (Norm) Urine WBCs NONE SEEN /HPF (0-5) Urine RBCs <1 /HPF (0-3) Lipid Panel 08/24/2022 [facility] Cholesterol, Total 175 mg/dL (<200) Triglyceride 213 mg/dL High (<150) HDL Chol 41 mg/dL (>39) LDL Cholesterol, Calculated 91 mg/dL (0-130) Non HDL Cholesterol (Calc) 134 mg/dL (<160) Comprehensive Metabolic Panl 08/24/2022 [facility] Glucose 184 mg/dL High [...] Hemoglobin A1c 8.2% Comprehensive Metabolic Panl 02/17/2022 [facility] Glucose 144 mg/dL High [...] 36 ML/MIN/1.7 3M2 9 Lipid Panel 02/17/2022 [facility] Cholesterol, Total 142 mg/dL (<200) Triglyceride 106 mg/dL (<150) HDL Chol 50 mg/dL (>39) LDL Cholesterol, Calculated 71 mg/dL (0-130) Non HDL Cholesterol (Calc) 92 mg/dL (<160) Hemoglobin A1c 02/17/2022 [facility] Hemoglobin A1c 8.5 % High (4.0-5.6) 10 Complete Abc With Diff 02/17/2022 [facility] WBC 6.1 K/MM3 (4.0-11.0) [...] K/MM3 (1.3-7.0) Lymph # 1.4 K/MM3 (0.8-3.1) Liberty# 0.4 K/MM3 (0.4-1.3) Eo # 0.2 K/MM3 (0.0-0.4) Baso # 0.0 K/MM3 (0.0-0.1) Abs. Imm Gran 0.0 K/MM3 Neut 66.3 % (44-76) Lymph 22.6 % (15-43) Monocyte 7.0 % (4.5-10.5) Eo 3.3 % (0-6) Baso 0.5 % (0-2) Imm Gran 0.3 % TSH With Reflex To FT4 02/17/2022 [facility] TSH With Reflex To FT4 4.62 uIU/mL High (0.4-4.2) Urinary Microalbumin 02/17/2022 [facility] Micro-Albumin 381.5 mg/L High (<20) 11 Malb/Creat Ratio 783.4 MG/GM High (0-20) Urine Creat For Micro Albumin 48.7 mg/dL Urinalysis Complete 02/17/2022 [facility] Appear/Color LIGHT YELLOW 12 SP. [place] 1.015 (1.002-1.0 30) Urine PH 5.5 (5.0-8.0) Urine Albumin 1+ Abnormal (Neg) Urine Glucose 4+ Abnormal (Neg) Urine Ketones NEGATIVE (Neg) Urine Bilirubin NEGATIVE (Neg) Urine Hemoglobin NEGATIVE (Neg) Urine Nitrite NEGATIVE (Neg) Urine Leukocyte NEGATIVE (Neg) Urobilinogen NORMAL mg/dL (Norm) Urine WBCs <1 /HPF (0-5) Urine RBCs NONE SEEN /HPF (0-3) Free T4 02/17/2022 [facility] Free T4 0.88 ng/dL [...] with health care provider. DIAGNOSTIC USE: The [place] Diabetes Association (ADA) and the World Health [...] No Show Office Visit Complet ed 08/23/2022 24866 Glucose Monitori ng From Interstital Tissue Fluid [...] Appt Benja e Curtis Gotti M.D. Created [address] [place] [address] Drive [address] [place] [address] [phone] Curtis Gotti M.D. Closed [address] [place] [address] Drive [address] [place] [address] [phone]
== END 2024-12-25 14:31 | disposition home or self-care (01) ==
LOC: HO.ENCR 13:51
PROVIDERS: PCP Internal Medicine; Visit Provider Internal Medicine
DX: E11.22 Type 2 diabetes mellitus with diabetic chronic kidney disease (principal); N18.4 Chronic kidney disease, stage 4 (severe); Z79.4 Long term (current) use of insulin; I12.9 Hypertensive chronic kidney disease with stage 1 through stage 4 chronic kidney disease, or unspecified chronic kidney disease; E78.5 Hyperlipidemia, unspecified

== ENCOUNTER → 2024-12-25 13:51 | Outpatient (BNVA) | payer MEDICARE, SELFPAY | PROVIDERS: PCP Internal Medicine; Visit Provider Internal Medicine | DX: E11.22 Type 2 diabetes mellitus with diabetic chronic kidney disease (principal); I12.9 Hypertensive chronic kidney disease with stage 1 through stage 4 chronic kidney disease, or unspecified chronic kidney disease; N18.4 Chronic kidney disease, stage 4 (severe); E78.5 Hyperlipidemia, unspecified; Z79.4 Long term (current) use of insulin | CPT/HCPCS: 82947; 83036; 99212 ==

== ENCOUNTER → 2025-01-08 13:50 | Outpatient (BNVA) | payer MEDICARE, SELFPAY | PROVIDERS: PCP Internal Medicine; Visit Provider Dietitian, Registered | DX: E11.22 Type 2 diabetes mellitus with diabetic chronic kidney disease (principal); N18.4 Chronic kidney disease, stage 4 (severe); E78.5 Hyperlipidemia, unspecified; Z79.4 Long term (current) use of insulin; Z71.3 Dietary counseling and surveillance | CPT/HCPCS: 97803 ==

== ENCOUNTER → 2025-01-08 13:50 | Outpatient (AMB) | payer MEDICARE, SELFPAY ==
--- NOTE | 2025-01-08 14:04 | A.OFFVIS_ITS ---
VS Expanded 01/08/25 14:05 Height 6 ft Weight 202 lb 6.15 oz BMI 27.4 Intake Visit Reasons: T2DM Allergies No Known Allergies (No Known Allergies*) Allergy (Verified 12/25/24 14:02) Nutrition Presentation Details: Pt presents for MNT f/u for T2DM Pt reports he is working on choosing healthier meals Pt's BG average at 230 mg/dl, highest bg after lunch. Pt reports eating out at lunch time choosing fast food meals (burger fries/sauces, diet soda, sweet potato fries) , home made meals at home pasta/meat sauce, bread, water or diet juice sometimes a fruit (does not like whole grain pasta). Reports taking novolog insulin after the meals. Pt reports misplacing the sliding scale provided by MD FERGUSON Medical History Hyperlipidemia Hypertension Diabetes Surgical History No pertinent past surgical history Family History Mother No problems noted. Father No problems noted. Social History Housing: House Alcohol intake: current Patient Tobacco Use Status: Former Tobacco user e-Cigarette/Vaping Use: Former Use service: No Current occupational status: retired Cognitive needs: No Hearing needs: No Vision needs: Yes (rx glasses) Assessment & Plan Assessment & Plan (1) Diabetes: Code(s): E11.9 - Type 2 diabetes mellitus without complications Category: Medical Qualifiers: Diabetes mellitus type: type 2 Diabetes mellitus long-term insulin use: with engineering analyst use Diabetes mellitus complication status: with kidney complications Diabetes mellitus complication detail: with chronic kidney disease Chronic kidney disease stage: stage 4 (GFR 15-29) Qualified Code(s): E11.22 - Type 2 diabetes mellitus with diabetic chronic kidney disease; N18.4 - Chronic kidney disease, stage 4 (severe); Z79.4 - alf (current) use of insulin Plan: Wt: 96 Kg (11/04 ), 92 kg (01/04) Est kcal needs as per MSJ: 2100 (40% carb, 30% protein/fat) Est fluid needs as per 25-30 ml/d: 2900 Est prot per day as per 1 g/kg bw: Recommend fiber intake : 8-10 g per day and gradually increase to 25-28 g per day for women and 35-38 g for men or as tolerated Recommend sodium intake per day : less than 1500 mg less than 2000 mg Educated patient on: ( R = reviewed V = verbalizes understanding N/R = needs review N/A = not applicable * Food sources of carbohydrate, adequate serving sizes and its role in various health conditions: R V * Differences between complex carbohydrates a simple carbohydrates, role of fiber in diet: R * Lean protein sources of foods: R V * Differences between types of fats and role in diet (mono on saturated fat fatty acids, saturated fatty acids, trans fats): R * Food sources of sodium in salt and healthy modifications for heart health in kidney health: R V R/V * Vitamins and minerals: R V N/R * Healthy plate method concept: R * Physical activity: Benefits a precaution: R * Hypoglycemia protocol (rule of 15): R V N/R * Dietary prevention of Hyperglycemia: R Patient Instructions: * Choose condiments with no sugar added, choose grilled chicken instead of breaded chicken when eating out, sweet potatoes have higher fiber but similar amount of fat as white potatoes when fried, choose smaller portion * Take Novolog insulin 5-10 minutes before the meals according to blood sugar level before the meals as per sliding scale provided by your doctor. (sliding scale if blood sugar is less than 100 then 0 units of Novolog * if Blood sugar is between 101-199 then take 6 units of Novolog * if blood sugar is between 200-299 then take 8 units of Novolog * if blood sugar is 300 or higher then take 10 units of Novolog Coding Level of Care Code Nutr Indiv Subseq (50682) Diagnoses Type 2 diabetes mellitus with stage 4 chronic kidney disease, with long-term current use of insulin E11.22; N18.4; Z79.4 Diabetes mellitus type: type 2 Diabetes mellitus long-term insulin use: with long-term use Diabetes mellitus complication status: with kidney complications Diabetes mellitus complication detail: with chronic kidney disease Chronic kidney disease stage: stage 4 (GFR 15-29) Time Spent (min) 30
[2025-01-08 14:05] VITALS: BMI 27.4
--- OUTSIDE RECORDS SUMMARY | 2025-01-08 17:42 | XMS_ITS | Continuity of Care Document ---
Author Organization [facility] [address] [place] [address] Phone [phone] Care Team Providers Care Skylights Assembler Name Role Phone Sanford Urrutia M.D. Care Team Information Receiv er [phone] Problems Active Problems Provider Date Type 2 [...] 3units Curtis Gotti M.D. 12/21/2023 Freestyle Ezekiel 3/Brookesmith/Glucose Monitoring Czxcij3Orjkuv Device use with sensors to check blood sugar dx:e11.9 1units Curtis Gotti M.D. 12/20/2023 Yndomuoi4gp/0.5ML Solution Pen-Inject 1 injection every week as directed 6ml Curtis Gotti M.D. 11/21/2023 Freestyle Ezekiel 3/Sensor/Glucose Monitoring Lcezgn7Nndtmd Misc as directed 3unmike Gotti M.D. 07/18/2023 Jtcmzeqgu71hu Tablets 1 tablet by mouth every day 90tabs Curtis Gotti M.D. 07/18/2023 Novolog Sprjgej187Fpiq/ML Solution Pen-Inject Inject 10-15 Units Subcutaneously 3 Times A Day 60units E11.9 Curtis Gotti M.D. 08/09/2022 Lant Oubnsquw019Dlfm/ML Solution Pen-Inject Inject 54 Units In Am 60ml E11.8 Curtis Gotti M.D. 02/07/2022 Ivraqdneto71wu Tablets Take 1/2 Tablet Daily 90tabs Curtis Gotti M.D. Atorvastatin Egjlnak20tq Tablets 1 by mouth every day 30tabs Sanford Urrutia M.D. Losartan Ubyigviuz28lk Tablets 1 by mouth every day 90tabs [...] Balta 30 mg/dL 5-40 LDL Chol Calc ([facility] [place]) 58 mg/dL 0-99 LDL Calc Comment: TNP Urinalysis, Complete 11/17/2023 [facility] Specific [place] 1.016 1.005-1.03 0 pH 5.5 5.0-7.5 Urine-Color [...] 1.4-7.0 Lymphs (Absolute) 1.3 x10E3/uL 0.7-3.1 Monocytes(Absol [place]) 0.3 x10E3/uL 0.1-0.9 Eos (Absolute) 0.1 x10E3/uL [...] 7.7% TSH With Reflex To FT4 08/24/2022 [facility] TSH With Reflex To FT4 3.54 uIU/mL (0.4-4.2) Urinary Microalbumin 08/24/2022 [facility] Micro-Albumin 305.0 mg/L High (<20) 6 Malb/Creat Ratio 509.3 MG/GM High (0-20) Urine Creat For Micro Albumin 59.9 mg/dL Complete Abc With Diff 08/24/2022 [facility] WBC 4.9 K/MM3 (4.0-11.0) RBC [...] K/MM3 (1.3-7.0) Lymph # 1.3 K/MM3 (0.8-3.1) Campbell# 0.4 K/MM3 (0.4-1.3) Eo # 0.1 K/MM3 (0.0-0.4) Baso # 0.0 K/MM3 (0.0-0.1) Abs. Imm Gran 0.0 K/MM3 Neut 62.6 % (44-76) Lymph 26.7 % (15-43) Monocyte 7.2 % (4.5-10.5) Eo 2.7 % (0-6) Baso 0.4 % (0-2) Imm Gran 0.4 % Urinalysis Complete 08/24/2022 [facility] Appear/Color LIGHT YELLOW 7 SP. [place] 1.019 (1.002-1.0 30) Urine PH 6.0 (5.0-8.0) Urine Albumin 1+ Abnormal (Neg) Urine Glucose 4+ Abnormal (Neg) Urine Ketones NEGATIVE (Neg) Urine Bilirubin NEGATIVE (Neg) Urine Hemoglobin NEGATIVE (Neg) Urine Nitrite NEGATIVE (Neg) Urine Leukocyte NEGATIVE (Neg) Urobilinogen NORMAL mg/dL (Norm) Urine WBCs NONE SEEN /HPF (0-5) Urine RBCs <1 /HPF (0-3) Lipid Panel 08/24/2022 [facility] Cholesterol, Total 175 mg/dL (<200) Triglyceride 213 mg/dL High (<150) HDL Chol 41 mg/dL (>39) LDL Cholesterol, Calculated 91 mg/dL (0-130) Non HDL Cholesterol (Calc) 134 mg/dL (<160) Comprehensive Metabolic Panl 08/24/2022 [facility] Glucose 184 mg/dL High (70-99) [...] Hemoglobin A1c 8.2% Comprehensive Metabolic Panl 02/17/2022 [facility] Glucose 144 mg/dL High (70-99) [...] 36 ML/MIN/1.7 3M2 9 Lipid Panel 02/17/2022 [facility] Cholesterol, Total 142 mg/dL (<200) Triglyceride 106 mg/dL (<150) HDL Chol 50 mg/dL (>39) LDL Cholesterol, Calculated 71 mg/dL (0-130) Non HDL Cholesterol (Calc) 92 mg/dL (<160) Hemoglobin A1c 02/17/2022 [facility] Hemoglobin A1c 8.5 % High (4.0-5.6) 10 Complete Abc With Diff 02/17/2022 [facility] WBC 6.1 K/MM3 (4.0-11.0) RBC [...] K/MM3 (1.3-7.0) Lymph # 1.4 K/MM3 (0.8-3.1) Campbell# 0.4 K/MM3 (0.4-1.3) Eo # 0.2 K/MM3 (0.0-0.4) Baso # 0.0 K/MM3 (0.0-0.1) Abs. Imm Gran 0.0 K/MM3 Neut 66.3 % (44-76) Lymph 22.6 % (15-43) Monocyte 7.0 % (4.5-10.5) Eo 3.3 % (0-6) Baso 0.5 % (0-2) Imm Gran 0.3 % TSH With Reflex To FT4 02/17/2022 [facility] TSH With Reflex To FT4 4.62 uIU/mL High (0.4-4.2) Urinary Microalbumin 02/17/2022 [facility] Micro-Albumin 381.5 mg/L High (<20) 11 Malb/Creat Ratio 783.4 MG/GM High (0-20) Urine Creat For Micro Albumin 48.7 mg/dL Urinalysis Complete 02/17/2022 [facility] Appear/Color LIGHT YELLOW 12 SP. [place] 1.015 (1.002-1.0 30) Urine PH 5.5 (5.0-8.0) Urine Albumin 1+ Abnormal (Neg) Urine Glucose 4+ Abnormal (Neg) Urine Ketones NEGATIVE (Neg) Urine Bilirubin NEGATIVE (Neg) Urine Hemoglobin NEGATIVE (Neg) Urine Nitrite NEGATIVE (Neg) Urine Leukocyte NEGATIVE (Neg) Urobilinogen NORMAL mg/dL (Norm) Urine WBCs <1 /HPF (0-5) Urine RBCs NONE SEEN /HPF (0-3) Free T4 02/17/2022 [facility] Free T4 0.88 ng/dL (0.70-1.80 [...] with health care provider. DIAGNOSTIC USE: The [place] Diabetes Association (ADA) and the World Health [...] No Show Office Visit Complet ed 08/23/2022 [id number] Glucose Monitori ng From Interstital Tissue Fluid [...] Appt Benja e Curtis Gotti M.D. Created [address] [place] [address] Drive [address] [place] [address] [phone] Curtis Gotti M.D. Closed [address] [place] [address] Drive [address] [place] [address] [phone]
--- OUTSIDE RECORDS SUMMARY | 2025-01-08 17:42 | XMS_ITS | Clinical Summary ---
Author Organization [facility] Address [address] [address] Phone Care Team Providers Care Pediatric Physical Therapist Name Role Phone Sanford Urrutia MD Primary Care Provider [phone] Allergies Active Allergy Reactions Criticality Noted Date [...] Blood Gluc Sensor (FreeStyle Ezekiel 2 Sensor) [facility] Active Mounjaro 7.5 MG/0.5ML solution auto-injector INJECT 7.5MG (=0.5ML) SUBCUTANEOUSLY WEEKLY (EVERY 7 DAYS) 10/17/19 25 Active sodium bicarbonate 650 MG tablet Take 2 tablets (1,300 mg total) by mouth in the morning and 2 tablets (1,300 mg total) in the evening. 11/19/19 25 Active Empagliflozin 10 MG tablet Take 10 mg by mouth 1 (one) time each day in the morning 90 tablet 3 11/19/19 25 026 Active losartan (Cozaar) 50 MG tablet Take 1 tablet (50 mg total) by mouth 1 (one) time each day 90 tablet 3 11/19/19 25 026 Active Active Problems Problem Noted Date Diagnosed [...] Office Visit [facility] [address] [address] Nir Mendoza MD Stage 3b chronic kidney [...] Office Visit [facility] [address] [phone] Nir Mendoza MD [address] [phone] Health Maintenance Due Date Last Done Comments [...] Creatinine, Ur 78.4 Not Estab. mg/dL [facility] Protein, Ur 72.1 Not Estab. mg/dL [facility] Urine Protein/Creati nine Ratio 920(H) 0 - 200 mg/g creat [facility] Urine specimen (specimen) Urine specimen obtained by clean catch procedure / Unknown 11/15/2024 3:31 PM EDT 11/15/2024 us Nir Mendoza MD LAB URINE ORDERABLES Final [facility] [address] [place] [address] * Vitamin D 25 hydroxy (11/15/2024 3:31 PM EDT) Vitamin D, 25-OH, Total 35.5 30.0 - 100.0 ng/mL [facility] Comment: Vitamin D deficiency has been defined by the [place] of Medicine and an Endocrine Society practice guideline as a level of serum 25-OH vitamin D less than 20 ng/mL (1,2). The Endocrine Society went on to further define vitamin D insufficiency as a level between 21 and 29 ng/mL (2). 1. IOM ([place] of Medicine). 2010. Dietary reference intakes for calcium and D. [place]: The National Academies Press. 2. Lisa MF, Ashish NC, Aurelio-Jacob BUTLER, et al. Evaluation, treatment, and prevention of vitamin D deficiency: an Endocrine Society clinical practice guideline. JCEM. 2010; 96(7):1911-30. Blood specimen (specimen) Venous blood / Unknown 11/15/2024 3:31 PM EDT 11/15/2024 us Nir Mendoza MD LAB BLOOD ORDERABLES Final Resu lt [facility] [address] [place] [address] * (ABNORMAL) PTH, intact (11/15/2024 3:31 PM EDT) PTH 91(H) 15 - 65 pg/mL [facility] Blood specimen (specimen) Venous blood / Unknown 11/15/2024 3:31 PM EDT 11/15/2024 Nir Mendoza MD LAB BLOOD ORDERABLES Final Resu lt Performing Organization Address City/[facility]/ZIP Co de Phone Number [facility] [address] [place] [address] * (ABNORMAL) Renal function panel (11/15/2024 3:31 PM EDT) Glucose 381(H) 70 - 99 mg/dL [facility] BUN 50(H) 8 - 27 mg/dL [facility] Creatinine 2.12(H) 0.76 - 1.27 mg/dL [facility] eGFR CKD-EPI CR 2020 33(L) >59 mL/min/1.7 3 [facility] BUN/Creatinine Ratio 24 10 - 24 [facility] Sodium 133(L) 134 - 144 mmol/L [facility] Potassium 5.0 3.5 - 5.2 mmol/L [facility] Chloride 104 96 - 106 mmol/L [facility] Bicarbonate (CO2) 15(L) 20 - 29 mmol/L [facility] Calcium 8.7 8.6 - 10.2 mg/dL [facility] Albumin 4.3 3.9 - 4.9 g/dL [facility] Phosphorus 2.9 2.8 - 4.1 mg/dL [facility] Blood specimen (specimen) Venous blood / Unknown 11/15/2024 3:31 PM EDT 11/15/2024 Nir Mendoza MD LAB BLOOD ORDERABLES Final Resu lt [facility] [address] [place] [address] from Last 3 Months Insurance [facility] Care Teams Pediatric Physical Therapist Relationship Specialty Start Date End Date Sanford Urrutia MD [id number] [place] PCP - General 03/23/20
== END ==
LOC: HO.ENCR 13:51
PROVIDERS: PCP Internal Medicine; Visit Provider Dietitian, Registered
DX: E11.22 Type 2 diabetes mellitus with diabetic chronic kidney disease (principal); N18.4 Chronic kidney disease, stage 4 (severe); Z79.4 Long term (current) use of insulin

== ENCOUNTER 2025-01-15 12:49 | Outpatient (AMB) | payer MEDICARE, SELFPAY ==
--- NOTE | 2025-01-15 12:51 | MHC.PC.OV ---
Vital Signs 01/15/25 12:55 Height 5 ft 10.2 in Weight 201 lb BMI 28.7 BP 120/68 Blood Pressure Location Lt brachial Position Sitting Respiration 18 Pulse 78 Pulse Source Pulse Oximeter Temp 97.9 F Temp Source Temporal Artery Scan Pulse Oximetry (%) 97 Oxygen Delivery Method Room Air Intake Visit Reasons: Pre-op R eye - see comments Nuclear Control Room Operator Required: No Accompanied by: Self / Same As Patient Allergies No Known Allergies (No Known Allergies*) Allergy (Verified 01/15/25 12:52) Medication List - Last Reconciled 01/15/25 by Damien Marlow MD aspirin 81 mg PO DAILY atorvastatin (Lipitor) 80 mg PO DAILY blood-glucose sensor (Status4Style Ezekiel 3 Sensor device) As directed blood-glucose,photo printer,cont (FreeStyle Ezekiel 3 Hanson) As directed Jardiance (empagliflozin) 25 mg PO DAILY NS losartan 50 mg PO DAILY Novolog FlexPen U-100 Insulin (insulin aspart U-100) 1 sliding scale dose subcut TIDWMEAL NS OneTouch Verio Flex Start (blood-glucose meter) check blood glucose 3 times daily NS tirzepatide (Mounjaro) 7.5 mg (0.5 mL) subcut QWEEK Tobacco use date assessed: 08/07/24 Dental Screening Dental Screen Date: 08/07/24 HPI HPI Comments History of Present Illness Details The patient is a 69-year-old male presenting for a pre-operative evaluation for upcoming cataract surgery. He is scheduled for surgery in February or March, with the second eye procedure to follow a couple of weeks after the first. He reports his vision is becoming dim. The patient has a history of type 2 diabetes, for which he sees an supervisor cigar making machine, with his last visit being a couple of weeks ago. His most recent HbA1c was 8.1%, an improvement from a previous value of 8.4%. He also has a history of hypertension, hyperlipidemia, and stage 4 chronic kidney disease. He last saw his individual pension adviser in May and is scheduled for a six-month follow-up in March. The patient reports good functional status, stating he is able to walk around on his own, walk outside, carry groceries, and go up stairs without issue. Medical History: - Cataracts - Hyperlipidemia - Type 2 Diabetes Mellitus - Hypertension - Stage 4 Chronic Kidney Disease - Fall resulting in hand injury Surgical History: - Pending cataract surgery scheduled for February or March. Medications: - Aspirin 81 mg - Atorvastatin 80 mg for hyperlipidemia - Jardiance 25 mg for diabetes - Losartan 50 mg for hypertension - Sliding scale insulin, administered three times a day with meals, for diabetes - Mounjaro 7.5 mg Diagnostic Results: - Labs: HbA1c was 8.1% approximately 20 days ago, improved from 8.4%. Social History: - Functional Status: Patient is independent with activities of daily living, including walking, carrying groceries, and climbing stairs. [facility] Medical History (Updated 01/15/25 @ 13:13 by Damien Marlow MD) CKD stage 4 due to type 2 diabetes mellitus Pre-op examination Hyperlipidemia Hypertension Diabetes Surgical History No pertinent past surgical history Family History Mother No problems noted. Father No problems noted. Social History Housing: House Alcohol intake: current Patient Tobacco Use Status: Former Tobacco user e-Cigarette/Vaping Use: Former Use service: No Current occupational status: retired Cognitive needs: No Hearing needs: No Vision needs: Yes (rx glasses) Questionnaire Thrive Questionnaire Date Thrive assessed: 08/07/24 CHINMAY-7 AMB Questionnaire CHINMAY-7 Date CHINMAY - 7 assessed: 08/07/24 Source: Developed by Drs. Nino Marcum, Jia Castro, Guido Morales and colleagues, with an educational sally from [employer]. Review of Systems Narrative - Constitutional: Denies nausea or vomiting. - Cardiovascular: Denies chest pain. - Respiratory: Denies shortness of breath. - Neurological: Denies headaches. - Eyes: Reports dimming vision. Denies other vision changes. All systems reviewed & are unremarkable except as reviewed in HPI and above Physical exam (Primary Care) Vital Signs: Last Vital Signs Temp 97.9 F 01/15/25 12:55 Pulse 78 01/15/25 12:55 Resp 18 01/15/25 12:55 BP 120/68 01/15/25 12:55 Pulse Ox 97 01/15/25 12:55 Oxygen Delivery Method Room Air 01/15/25 12:55 BMI result Body Mass Index 28.7 Tobacco/Smoking Status: Tobacco use Status Tobacco use date assessed 08/07/24 01/15/25 12:59 Patient Tobacco Use Status Former Tobacco user 01/15/25 12:59 e-Cigarette/Vaping Use Former Use 01/15/25 12:59 Thrive Assessment: Date of Thrive Assessment Date Thrive assessed 08/07/24 01/15/25 12:59 Narrative General: +Alert and oriented, Well nourished, No acute distress. Eye: Pupils are equal, round and reactive to light, Intact accommodation, Extraocular movements are intact, Normal conjunctiva, Vision dimming. HENT: Normocephalic, Atraumatic, Tympanic membranes are clear, Normal hearing, Oral mucosa is moist, No pharyngeal erythema, Ear canals patent. Respiratory: Lungs CTA bilaterally, No wheeze, Respirations are non-labored. Cardiovascular: Regular rate, Regular rhythm, S1 auscultated, S2 auscultated, No murmur, Good pulses equal in all extremities, Normal peripheral perfusion, No edema. Gastrointestinal: Soft, Non-tender, Non-distended, Normal bowel sounds, No organomegaly. Musculoskeletal: Normal range of motion, Normal strength, No tenderness, No swelling, No deformity, Normal gait. Integumentary: Warm, Dry, Coleta, Intact. Neurologic: Alert, Oriented, Normal sensory, Normal motor function, No focal defects, Cranial Nerves II-XII are grossly intact, Normal deep tendon reflexes. Psychiatric: Cooperative, Appropriate mood & affect, Normal judgment. 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 insulin use: with mcfp use Diabetes mellitus complication status: with kidney complications Diabetes mellitus complication detail: with chronic kidney disease Chronic kidney disease stage: stage 4 (GFR 15-29) CKD stage 4 due to type 2 diabetes mellitus E11.22; N18.4 Hypertension, unspecified type I10 Hypertension type: unspecified Hyperlipidemia, unspecified hyperlipidemia type E78.5 Hyperlipidemia type: unspecified Assessment & Plan Assessment & Plan (1) Pre-op examination: Comment: The patient is a 69-year-old male scheduled for right-eye cataract extraction, which is a low-risk procedure (<1% risk of major adverse cardiac events). His medical history is significant for type 2 diabetes mellitus (on insulin, Jardiance, and Mounjaro), hypertension (on losartan), hyperlipidemia (on atorvastatin 80 mg), and chronic kidney disease with a creatinine of 2.67 mg/dL (eGFR ~25 mL/min). He has no known cardiac disease, no heart failure, and no history of cerebrovascular events. Using the Revised Cardiac Risk Index, he scores 2 points (insulin use and creatinine >2.0), consistent with intermediate medical comorbidity but low overall perioperative cardiac risk given the low-risk nature of cataract surgery. The patient is medically optimized for surgery. Recommend holding Jardiance for 3 days prior to the procedure and Mounjaro for 7 days prior. Continue losartan and atorvastatin as usual. On the day before surgery, administer ? the usual dose of basal insulin and hold short-acting insulin and oral agents on the morning of surgery. Blood glucose should be monitored perioperatively with a target range of 140?180 mg/dL. Avoid nephrotoxic medications and ensure adequate hydration. No further cardiac testing is indicated at this time. Code(s): Z01.818 - Encounter for other preprocedural examination Category: Medical (2) Diabetes: Comment: - The patient's recent HbA1c of 8.1% shows improvement from 8.4%. - He is under the care of an supervisor cigar making machine and should continue his current medication regimen. He last saw endocrinology a couple of weeks ago. Code(s): E11.9 - Type 2 diabetes mellitus without complications Category: Medical Qualifiers: Diabetes mellitus type: type 2 Diabetes mellitus mcfp insulin use: with dedicated intermodal truck driver use Diabetes mellitus complication status: with kidney complications Diabetes mellitus complication detail: with chronic kidney disease Chronic kidney disease stage: stage 4 (GFR 15-29) Qualified Code(s): E11.22 - Type 2 diabetes mellitus with diabetic chronic kidney disease; N18.4 - Chronic kidney disease, stage 4 (severe); Z79.4 - half-way (current) use of insulin (3) CKD stage 4 due to type 2 diabetes mellitus: Comment: - This is the patient's primary risk factor. - He last saw his individual pension adviser in May and is scheduled for a follow-up with them in March. Code(s): E11.22 - Type 2 diabetes mellitus with diabetic chronic kidney disease; N18.4 - Chronic kidney disease, stage 4 (severe) Category: Medical (4) Hypertension: Comment: - Continue current medication: Losartan 50 mg - Pressures well controlled Code(s): I10 - Essential (primary) hypertension Category: Medical Qualifiers: Hypertension type: unspecified Qualified Code(s): I10 - Essential (primary) hypertension (5) Hyperlipidemia: Comment: - Continue Atorvastatin - Plan to check cholesterol levels in next scheduled physical Code(s): E78.5 - Hyperlipidemia, unspecified Category: Medical Qualifiers: Hyperlipidemia type: unspecified Qualified Code(s): E78.5 - Hyperlipidemia, unspecified Plan: Health Maintenance: - The patient is scheduled for a yearly physical exam on March 27. - Blood work has been ordered to be completed one to two weeks before the scheduled physical. Patient was informed and verbally consented to the use of an ambient scribe for clinic note documentation during this visit. Plan I informed the patient that his upcoming cataract surgery is a very simple, low-risk procedure. I explained that because he has no history of heart disease, extensive pre-operative testing such as an EKG is not necessary. We discussed that his stage 4 chronic kidney disease is the primary health concern we need to monitor closely. I have scheduled him for a yearly physical on March 27 and ordered blood work to be done one to two weeks prior to that appointment to check on his kidney function and overall health. I advised him that the lab orders will be in the system and he does not need a paper copy. I also confirmed that we will send his medical records to his surgeon when they are requested. Orders: Orders Complete Blood Count Auto Diff 2 Months Z00.00 - Encounter for general adult medical examination without abnormal findings Hemoglobin A1c 2 Months Z00.00 - Encounter for general adult medical examination without abnormal findings HIV Ab/Ag 2 Months Z00.00 - Encounter for general adult medical examination without abnormal findings Lipid Panel 2 Months Z00.00 - Encounter for general adult medical examination without abnormal findings Comprehensive Met. Panel 2 Months Z00.00 - Encounter for general adult medical examination without abnormal findings Hepatitis A,B,C Profile 2 Months Z00.00 - Encounter for general adult medical examination without abnormal findings Syphilis Screen 2 Months Z00.00 - Encounter for general adult medical examination without abnormal findings TSH reflex Free T4 2 Months Z00.00 - Encounter for general adult medical examination without abnormal findings Vitamin D 25-OH Total 2 Months Z00.00 - Encounter for general adult medical examination without abnormal findings Referrals Ophthalmology Referral Z03.89 - Encounter for observation for other suspected diseases and conditions ruled out Patient Instructions: - Your upcoming cataract surgery is a very safe and low-risk procedure. - Please have your blood work done about one to two weeks before your next appointment with me on March 27. - You do not need any papers for the blood work; you can walk into the lab and they will have the orders in the system. - Continue to take your current medications as prescribed. - Follow up with your kidney doctor as scheduled in March. - We will send your medical records to your eye surgeon when they request them.
[2025-01-15 12:55] VITALS: BP 120/68; PULSE 78; RESP 18; TEMP 36.6; O2SAT 97; BMI 28.7
--- OUTSIDE RECORDS SUMMARY | 2025-01-15 15:30 | XMS_ITS | Continuity of Care Document ---
Author Organization [facility] [address] [address] [place] [address] Phone [phone] Care Team Providers Care Rainbow Trout Farm Manager Name Role Phone Sanford Urrutia M.D. Care Team Information Receiv er [phone] Problems Active Problems Provider Date Type 2 [...] 3units Curtis Gotti M.D. 12/21/2023 Freestyle Ezekiel 3/[place]/Glucose Monitoring Liwczn0Yzgdze Device use with sensors to check blood sugar dx:e11.9 1units Curtis Gotti M.D. 12/20/2023 Dsttzkop9xv/0.5ML Solution Pen-Inject 1 injection every week as directed 6ml Curtis Gotti M.D. 11/21/2023 Freestyle Ezekiel 3/Sensor/Glucose Monitoring Ggmpmz0Vqcquj Misc as directed 3unmike Gotti M.D. 07/18/2023 Qrhximcpj77ho Tablets 1 tablet by mouth every day 90tabs Curtis Gotti M.D. 07/18/2023 Novolog Amqnbbt371Gooo/ML Solution Pen-Inject Inject 10-15 Units Subcutaneously 3 Times A Day 60units E11.9 Curtis Gotti M.D. 08/09/2022 Lant Dtvvtcfx491Jasx/ML Solution Pen-Inject Inject 54 Units In Am 60ml E11.8 Curtis Gotti M.D. 02/07/2022 Atnwhipehn94ga Tablets Take 1/2 Tablet Daily 90tabs Curtis Gotti M.D. Atorvastatin Btrlzro85yq Tablets 1 by mouth every day 30tabs Sanford Urrutia M.D. Losartan Xtjexfzpk00az Tablets 1 by mouth every day 90tabs [...] 30 mg/dL 5-40 LDL Chol Calc ([facility]) 58 mg/dL 0-99 LDL Calc Comment: TNP Urinalysis, Complete 11/17/2023 [facility] [place] 1.016 1.005-1.03 0 pH 5.5 5.0-7.5 Urine-Color [...] 1.4-7.0 Lymphs (Absolute) 1.3 x10E3/uL 0.7-3.1 Monocytes(Absol minto) 0.3 x10E3/uL 0.1-0.9 Eos (Absolute) 0.1 x10E3/uL [...] 7.7% TSH With Reflex To FT4 08/24/2022 [facility] TSH With Reflex To FT4 3.54 uIU/mL (0.4-4.2) Urinary Microalbumin 08/24/2022 [facility] Micro-Albumin 305.0 mg/L High (<20) 6 Malb/Creat Ratio 509.3 MG/GM High (0-20) Urine Creat For Micro Albumin 59.9 mg/dL Complete Abc With Diff 08/24/2022 [facility] WBC 4.9 K/MM3 [...] K/MM3 (1.3-7.0) Lymph # 1.3 K/MM3 (0.8-3.1) [place]# 0.4 K/MM3 (0.4-1.3) Eo # 0.1 K/MM3 (0.0-0.4) Baso # 0.0 K/MM3 (0.0-0.1) Abs. Imm Gran 0.0 K/MM3 Neut 62.6 % (44-76) Lymph 26.7 % (15-43) Monocyte 7.2 % (4.5-10.5) Eo 2.7 % (0-6) Baso 0.4 % (0-2) Imm Gran 0.4 % Urinalysis Complete 08/24/2022 [facility] Appear/Color LIGHT YELLOW 7 SP. [place] 1.019 (1.002-1.0 30) Urine PH 6.0 (5.0-8.0) Urine Albumin 1+ Abnormal (Neg) Urine Glucose 4+ Abnormal (Neg) Urine Ketones NEGATIVE (Neg) Urine Bilirubin NEGATIVE (Neg) Urine Hemoglobin NEGATIVE (Neg) Urine Nitrite NEGATIVE (Neg) Urine Leukocyte NEGATIVE (Neg) Urobilinogen NORMAL mg/dL (Norm) Urine WBCs NONE SEEN /HPF (0-5) Urine RBCs <1 /HPF (0-3) Lipid Panel 08/24/2022 [facility] Cholesterol, Total 175 mg/dL (<200) Triglyceride 213 mg/dL High (<150) HDL Chol 41 mg/dL (>39) LDL Cholesterol, Calculated 91 mg/dL (0-130) Non HDL Cholesterol (Calc) 134 mg/dL (<160) Comprehensive Metabolic Panl 08/24/2022 [facility] Glucose 184 mg/dL [...] Hemoglobin A1c 8.2% Comprehensive Metabolic Panl 02/17/2022 [facility] Glucose 144 mg/dL [...] 36 ML/MIN/1.7 3M2 9 Lipid Panel 02/17/2022 [facility] Cholesterol, Total 142 mg/dL (<200) Triglyceride 106 mg/dL (<150) HDL Chol 50 mg/dL (>39) LDL Cholesterol, Calculated 71 mg/dL (0-130) Non HDL Cholesterol (Calc) 92 mg/dL (<160) Hemoglobin A1c 02/17/2022 [facility] Hemoglobin A1c 8.5 % High (4.0-5.6) 10 Complete Abc With Diff 02/17/2022 [facility] WBC 6.1 K/MM3 [...] K/MM3 (1.3-7.0) Lymph # 1.4 K/MM3 (0.8-3.1) [place]# 0.4 K/MM3 (0.4-1.3) Eo # 0.2 K/MM3 (0.0-0.4) Baso # 0.0 K/MM3 (0.0-0.1) Abs. Imm Gran 0.0 K/MM3 Neut 66.3 % (44-76) Lymph 22.6 % (15-43) Monocyte 7.0 % (4.5-10.5) Eo 3.3 % (0-6) Baso 0.5 % (0-2) Imm Gran 0.3 % TSH With Reflex To FT4 02/17/2022 [facility] TSH With Reflex To FT4 4.62 uIU/mL High (0.4-4.2) Urinary Microalbumin 02/17/2022 [facility] Micro-Albumin 381.5 mg/L High (<20) 11 Malb/Creat Ratio 783.4 MG/GM High (0-20) Urine Creat For Micro Albumin 48.7 mg/dL Urinalysis Complete 02/17/2022 [facility] Appear/Color LIGHT YELLOW 12 SP. [place] 1.015 (1.002-1.0 30) Urine PH 5.5 (5.0-8.0) Urine Albumin 1+ Abnormal (Neg) Urine Glucose 4+ Abnormal (Neg) Urine Ketones NEGATIVE (Neg) Urine Bilirubin NEGATIVE (Neg) Urine Hemoglobin NEGATIVE (Neg) Urine Nitrite NEGATIVE (Neg) Urine Leukocyte NEGATIVE (Neg) Urobilinogen NORMAL mg/dL (Norm) Urine WBCs <1 /HPF (0-5) Urine RBCs NONE SEEN /HPF (0-3) Free T4 02/17/2022 [facility] Free T4 0.88 [...] with health care provider. DIAGNOSTIC USE: The [place] [employer] (ADA) and the World Health [...] No Show Office Visit Complet ed 08/23/2022 [id number] Glucose Monitori ng From Interstital Tissue Fluid [...] Benja e Curtis Gotti M.D. Created [address] [place] [address] Drive [address] [place] [address] [phone] Curtis Gotti M.D. Closed [address] [place] [address] Drive [address] [place] [address] [phone]
== END 2025-01-15 13:13 | disposition home or self-care (01) ==
LOC: HO.HMCHD 12:49
PROVIDERS: PCP Student in an Organized Health Care Education/Training Program; Visit Provider Student in an Organized Health Care Education/Training Program
DX: Z01.818 Encounter for other preprocedural examination (principal); E11.22 Type 2 diabetes mellitus with diabetic chronic kidney disease; N18.4 Chronic kidney disease, stage 4 (severe); Z79.4 Long term (current) use of insulin; I12.9 Hypertensive chronic kidney disease with stage 1 through stage 4 chronic kidney disease, or unspecified chronic kidney disease; E78.5 Hyperlipidemia, unspecified

== ENCOUNTER → 2025-01-15 12:49 | Outpatient (BNVA) | payer MEDICARE, SELFPAY | PROVIDERS: PCP Student in an Organized Health Care Education/Training Program; Visit Provider Student in an Organized Health Care Education/Training Program | DX: Z01.818 Encounter for other preprocedural examination (principal); E11.22 Type 2 diabetes mellitus with diabetic chronic kidney disease; I12.9 Hypertensive chronic kidney disease with stage 1 through stage 4 chronic kidney disease, or unspecified chronic kidney disease; N18.4 Chronic kidney disease, stage 4 (severe); I10 Essential (primary) hypertension; E78.5 Hyperlipidemia, unspecified; Z79.4 Long term (current) use of insulin | CPT/HCPCS: 99212 ==

== ENCOUNTER 2025-01-23 09:50 | Outpatient (AMB) | payer MEDICARE, SELFPAY ==
--- NOTE | 2025-01-23 09:57 | A.OFFVIS_ITS ---
Vital Signs 01/23/25 09:58 Height 6 ft Weight 205 lb 0.478 oz BMI 27.8 BP 126/64 Blood Pressure Location Rt brachial Position Sitting Pulse 60 Pulse Source Pulse Oximeter Pulse Oximetry (%) 96 Oxygen Delivery Method Room Air Intake Visit Reasons: T2DM/CGM review Intake Note: Patient presents today for a follow-up on Type 2 Diabetes Mellitus: Last Diabetic eye exam was on: October 01, 2024, [facility] Last Podiatry exam was on: Patient does not see a Stain Applicator Most recent HbA1c: 8.1%, 12/25/2024 Random Glucose: 107 mg/dL Manuscripts Curator Required: No Accompanied by: Self / Same As Patient Allergies No Known Allergies (No Known Allergies*) Allergy (Verified 01/23/25 09:58) HPI Comments Details: 69 year old male who is seen in consultation for T2DM in setting of CKD Stage 4 at the request of PCP. PMH HTN, HLD, cataract Initially diagnosed with T2DM in since age 39. Was initially started on treatment with metformin Current regimen Mounjaro 7.5 mg Jardiance 25 mg QD (increased from 10 on 12/25) Novolog Sliding scale with meals (new sliding scale since 12/25) For BG <100 take 0 units For BG 100-199 take 6 units For BG 200-299 take 8 units For BG >300 take take 10 units He forgot his phone with his CGM readings. He said he has noticed improvement with new medication but does not know exact numbers CGM reviewed 12/25- day GMI 8.1%. 0% lows. He does want to use his other phone but advised he needs to wait until he starts his new sensor A1C 12/25 is 8.1% from 8.4% Treats lows with sugar. Advised to check sugar after to ensure it is rising. Family history of T2DM in father, mother , sister brothers . Has eyes checked yearly-Dr. 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 Has neuropathy, last foot exam 2-3 yrs ago , sees podiatry. Has nephropathy at [facility] , on CLAUDIO/ARB. Has HLD, on statin. Last LDL as measured on 111. Denies CAD.Has CVA Has scheduled diabetic education and nutrition ROS CONSTITUTIONAL: Denies weight loss, fever and chills. HEENT: Denies changes in vision and hearing. RESPIRATORY: Denies SOB and cough. CV: Denies palpitations and CP GI: Denies abdominal pain, nausea, vomiting and diarrhea. : Denies dysuria and urinary frequency. MSK: Denies new myalgia and joint pain. SKIN: Denies rash and pruritus. NEUROLOGICAL: Denies headache PSYCHIATRIC: Denies recent changes in mood. PHYSICAL EXAM: GENERAL: Alert and oriented x 3. NAD EYES: EOMI. Anicteric. HENT: Moist mucous membranes. No scleral icterus. No cervical lymphadenopathy. LUNGS: Clear to auscultation bilaterally. CARDIOVASCULAR: Bradycardic, pvcs. No JVD. ABDOMEN: Soft, non-tender +bs EXTREMITIES: No edema. Non-tender. SKIN: No rashes or lesions. Warm. NEUROLOGIC: No focal neurological deficits. CN II-XII grossly intact PSYCHIATRIC: Cooperative. Appropriate mood and affect [facility] Medical History CKD stage 4 due to type 2 diabetes mellitus Pre-op examination Hyperlipidemia Hypertension Diabetes Surgical History No pertinent past surgical history Family History Mother No problems noted. Father No problems noted. Social History Housing: House Alcohol intake: current Patient Tobacco Use Status: Former Tobacco user e-Cigarette/Vaping Use: Former Use service: No Current occupational status: retired Cognitive needs: No Hearing needs: No Vision needs: Yes (rx glasses) Physical Exam Vital Signs: Last Vital Signs Pulse 60 01/23/25 09:58 BP 126/64 01/23/25 09:58 Pulse Ox 96 01/23/25 09:58 Oxygen Delivery Method Room Air 11/13/25 09:58 BMI result Body Mass Index 27.8 Assessment & Plan Assessment & Plan (1) Diabetes: Comment: - The patient's recent HbA1c of 8.1% shows improvement from 8.4%. - He is under the care of an club lounge attendant and should continue his current medication regimen. He last saw endocrinology a couple of weeks ago. Code(s): E11.9 - Type 2 diabetes mellitus without complications Category: Medical Qualifiers: Diabetes mellitus type: type 2 Diabetes mellitus labor and delivery nurse insulin use: with labor and delivery nurse use Diabetes mellitus complication status: with kidney complications Diabetes mellitus complication detail: with chronic kidney disease Chronic kidney disease stage: stage 4 (GFR 15-29) Qualified Code(s): E11.22 - Type 2 diabetes mellitus with diabetic chronic kidney disease; N18.4 - Chronic kidney disease, stage 4 (severe); Z79.4 - custodial (current) use of insulin Plan Type 2 diabetes unfortunately forgot his phone today. He says glucose is improved since last month Treat any hypoglycemia by rules of 15s He will continue the current medication and return in 2 months for A1C or sooner as needed Coding Level of Care Code Est Pt Level 3 (10026) Diagnoses Type 2 diabetes mellitus with stage 4 chronic kidney disease, with long-term current use of insulin E11.22; N18.4; Z79.4 Diabetes mellitus type: type 2 Diabetes mellitus usp insulin use: with usp use Diabetes mellitus complication status: with kidney complications Diabetes mellitus complication detail: with chronic kidney disease Chronic kidney disease stage: stage 4 (GFR 15-29)
[2025-01-23 09:58] VITALS: BP 126/64; PULSE 60; O2SAT 96; BMI 27.8
[2025-01-23 10:09] LABS: Glucose, Whole Blood 107 mg/dL (60-115)
--- OUTSIDE RECORDS SUMMARY | 2025-01-23 11:36 | XMS_ITS | Continuity of Care Document ---
Author Organization [facility] [address] [facility] [address] [place] [address] Phone [phone] Care Team Providers Care Rice Drier Operator Name Role Phone Sanford Urrutia M.D. Care Team Information Receiv er [phone] Problems Active Problems Provider Date Type 2 [...] 3units Curtis Gotti M.D. 12/21/2023 Freestyle Ezekiel 3/[place]/Glucose Monitoring Tbhgxr5Agccqv Device use with sensors to check blood sugar dx:e11.9 1units Curtis Gotti M.D. 12/20/2023 Mcbnpnlv9ic/0.5ML Solution Pen-Inject 1 injection every week as directed 6ml Curtis Gotti M.D. 11/21/2023 Freestyle Ezekiel 3/Sensor/Glucose Monitoring Syckoa0Bddveu Misc as directed 3unmike Gotti M.D. 07/18/2023 Zphopgtcz50ue Tablets 1 tablet by mouth every day 90tabs Curtis Gotti M.D. 07/18/2023 Novolog Ionntwb220Hlvp/ML Solution Pen-Inject Inject 10-15 Units Subcutaneously 3 Times A Day 60units E11.9 Curtis Gotti M.D. 08/09/2022 Lant Xxlhgytg523Hxyn/ML Solution Pen-Inject Inject 54 Units In Am 60ml E11.8 Curtis Gotti M.D. 02/07/2022 Qqbfcmrhzy55mg Tablets Take 1/2 Tablet Daily 90tabs Curtis Gotti M.D. Atorvastatin Hrjzpzv11sf Tablets 1 by mouth every day 30tabs Sanford Urrutia M.D. Losartan Djvgmnpyu74ra Tablets 1 by mouth every day 90tabs [...] Balta 30 mg/dL 5-40 LDL Chol Calc ([facility]) 58 mg/dL 0-99 LDL Calc Comment: TNP Urinalysis, Complete 11/17/2023 [facility] [place] 1.016 1.005-1.03 0 pH 5.5 5.0-7.5 Urine-Color [...] 7.7% TSH With Reflex To FT4 08/24/2022 [facility] TSH With Reflex To FT4 3.54 uIU/mL (0.4-4.2) Urinary Microalbumin 08/24/2022 [facility] Micro-Albumin 305.0 mg/L High (<20) 6 Malb/Creat Ratio 509.3 MG/GM High (0-20) Urine Creat For Micro Albumin 59.9 mg/dL Complete Abc With Diff 08/24/2022 [facility] WBC 4.9 K/MM3 [...] K/MM3 (1.3-7.0) Lymph # 1.3 K/MM3 (0.8-3.1) [place]# 0.4 K/MM3 (0.4-1.3) Eo # 0.1 K/MM3 (0.0-0.4) Baso # 0.0 K/MM3 (0.0-0.1) Abs. Imm Gran 0.0 K/MM3 Neut 62.6 % (44-76) Lymph 26.7 % (15-43) Monocyte 7.2 % (4.5-10.5) Eo 2.7 % (0-6) Baso 0.4 % (0-2) Imm Gran 0.4 % Urinalysis Complete 08/24/2022 [facility] Appear/Color LIGHT YELLOW 7 SP. [place] 1.019 (1.002-1.0 30) Urine PH 6.0 (5.0-8.0) Urine Albumin 1+ Abnormal (Neg) Urine Glucose 4+ Abnormal (Neg) Urine Ketones NEGATIVE (Neg) Urine Bilirubin NEGATIVE (Neg) Urine Hemoglobin NEGATIVE (Neg) Urine Nitrite NEGATIVE (Neg) Urine Leukocyte NEGATIVE (Neg) Urobilinogen NORMAL mg/dL (Norm) Urine WBCs NONE SEEN /HPF (0-5) Urine RBCs <1 /HPF (0-3) Lipid Panel 08/24/2022 [facility] Cholesterol, Total 175 mg/dL (<200) Triglyceride 213 mg/dL High (<150) HDL Chol 41 mg/dL (>39) LDL Cholesterol, Calculated 91 mg/dL (0-130) Non HDL Cholesterol (Calc) 134 mg/dL (<160) Comprehensive Metabolic Panl 08/24/2022 [facility] Glucose 184 mg/dL [...] Hemoglobin A1c 8.2% Comprehensive Metabolic Panl 02/17/2022 [facility] Glucose 144 mg/dL [...] 36 ML/MIN/1.7 3M2 9 Lipid Panel 02/17/2022 [facility] Cholesterol, Total 142 mg/dL (<200) Triglyceride 106 mg/dL (<150) HDL Chol 50 mg/dL (>39) LDL Cholesterol, Calculated 71 mg/dL (0-130) Non HDL Cholesterol (Calc) 92 mg/dL (<160) Hemoglobin A1c 02/17/2022 [facility] Hemoglobin A1c 8.5 % High (4.0-5.6) 10 Complete Abc With Diff 02/17/2022 [facility] WBC 6.1 K/MM3 [...] K/MM3 (1.3-7.0) Lymph # 1.4 K/MM3 (0.8-3.1) [place]# 0.4 K/MM3 (0.4-1.3) Eo # 0.2 K/MM3 (0.0-0.4) Baso # 0.0 K/MM3 (0.0-0.1) Abs. Imm Gran 0.0 K/MM3 Neut 66.3 % (44-76) Lymph 22.6 % (15-43) Monocyte 7.0 % (4.5-10.5) Eo 3.3 % (0-6) Baso 0.5 % (0-2) Imm Gran 0.3 % TSH With Reflex To FT4 02/17/2022 [facility] TSH With Reflex To FT4 4.62 uIU/mL High (0.4-4.2) Urinary Microalbumin 02/17/2022 [facility] Micro-Albumin 381.5 mg/L High (<20) 11 Malb/Creat Ratio 783.4 MG/GM High (0-20) Urine Creat For Micro Albumin 48.7 mg/dL Urinalysis Complete 02/17/2022 [facility] Appear/Color LIGHT YELLOW 12 SP. [place] 1.015 (1.002-1.0 30) Urine PH 5.5 (5.0-8.0) Urine Albumin 1+ Abnormal (Neg) Urine Glucose 4+ Abnormal (Neg) Urine Ketones NEGATIVE (Neg) Urine Bilirubin NEGATIVE (Neg) Urine Hemoglobin NEGATIVE (Neg) Urine Nitrite NEGATIVE (Neg) Urine Leukocyte NEGATIVE (Neg) Urobilinogen NORMAL mg/dL (Norm) Urine WBCs <1 /HPF (0-5) Urine RBCs NONE SEEN /HPF (0-3) Free T4 02/17/2022 [facility] Free T4 0.88 [...] with health care provider. DIAGNOSTIC USE: The [place] [employer] (ADA) and the World Health [...] No Show Office Visit Complet ed 08/23/2022 [id number] Glucose Monitori ng From Interstital Tissue Fluid [...] Appt Benja e Curtis Gotti M.D. Created [address] [place] [address] Drive [address] [place] [address] [phone] Curtis Gotti M.D. Closed [address] [place] [address] Drive [address] [place] [address] [phone]
== END 2025-01-23 10:29 | disposition home or self-care (01) ==
LOC: HO.ENCR 09:51
PROVIDERS: PCP Internal Medicine; Visit Provider Internal Medicine
DX: E11.22 Type 2 diabetes mellitus with diabetic chronic kidney disease (principal); N18.4 Chronic kidney disease, stage 4 (severe); Z79.4 Long term (current) use of insulin

== ENCOUNTER → 2025-01-23 09:50 | Outpatient (BNVA) | payer MEDICARE, SELFPAY | PROVIDERS: PCP Internal Medicine; Visit Provider Internal Medicine | DX: I12.9 Hypertensive chronic kidney disease with stage 1 through stage 4 chronic kidney disease, or unspecified chronic kidney disease (principal); E11.22 Type 2 diabetes mellitus with diabetic chronic kidney disease; N18.4 Chronic kidney disease, stage 4 (severe); Z79.4 Long term (current) use of insulin | CPT/HCPCS: 82947; 99212 ==